=== PATIENT | male | born 1935 | race Caucasian/White ===

== ENCOUNTER 2017-02-18 18:51 | Inpatient (IN) | payer MEDICARE, OTHER ==
[~2017-02-18] VITALS: Ht 175.3 cm; Wt 88.2 kg
[~2017-02-18 18:51] MED LIST: AMLO5 PO; ARIC5TAB PO; DONE5TAB14 PO; MEMA10 PO; NAME10TA PO; NORV5TAB PO; RISP.5 PO; RISP0.252 PO
[2017-02-18 19:08] VITALS: BP 160/72; PULSE 56; RESP 20; TEMP 98.8; O2SAT 96
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
[2017-02-18 19:46] LABS: AUTOMATED NEUTROPHIL # 6.2 TH/MM3 (1.8-7.7); BASOPHIL % 0.4 % (0.0-2.0); EOSINOPHIL % 0.1 % (0.0-4.0); HEMATOCRIT 44.5 % (39.0-51.0); HEMO FLAGS DIFF FINAL; LYMPH % 21.6 % (9.0-44.0); LYMPHOCYTE # 1.9 TH/MM3 (1.0-4.8); MEAN CELL VOLUME 92.9 FL (80.0-100.0); MEAN CORPUSCULAR HEMOGLOBIN 31.5 PG (27.0-34.0); MEAN CORPUSCULAR HGB CONC 33.9 % (32.0-36.0); MONO % 7.6 % (0.0-8.0); NEUT % 70.3 % (16.0-70.0); PLATELET COUNT 211 TH/MM3 (150-450); RED BLOOD COUNT 4.79 MIL/MM3 (4.50-5.90); RED CELL DISTRIBUTION WIDTH 13.7 % (11.6-17.2); WHITE BLOOD COUNT 8.9 TH/MM3 (4.0-11.0)
[2017-02-18 19:58] LABS: BLOOD, URINE NEG (NEG); COMMENT (UR) CULT NOT INDICATED; CULTURE IF INDICATED CULT NOT INDICATED; GLUCOSE,URINE NEG (NEG); KETONE, URINE 10 mg/dL (NEG); MUCUS URINE MANY /lpf (OCC); NITRITE,URINE NEG (NEG); SQUAMOUS EPITHELIAL CELL URINE <1 /hpf (0-5); URINE COLOR YELLOW (YELLW/STRAW)
[2017-02-18 20:09] LABS: ANION GAP 8 MEQ/L (5-15); AST (GOT) 25 U/L (15-37); BICARBONATE 24.9 MEQ/L (21.0-32.0); BLOOD UREA NITROGEN 11 MG/DL (7-18); CHLORIDE 109 MEQ/L (98-107); GLOMERULAR FILTRATION RATE 69 ML/MIN (>89); POTASSIUM 4.2 MEQ/L (3.5-5.1); SODIUM (NA) 142 MEQ/L (136-145)
[2017-02-18 20:10] LABS: ALT (GPT) 19 U/L (12-78)
[2017-02-18 20:12] LABS: ALKALINE PHOSPHATASE 53 U/L (45-117); TOTAL BILIRUBIN ADULT 0.6 MG/DL (0.2-1.0)
[2017-02-18 21:30] VITALS: BP 139/63; PULSE 61; RESP 17; O2SAT 100
[2017-02-18] MEDS ORDERED: HALOPERIDOL LACTATE 5 MG/ML AMP IV PUSH ONE (21:45)
[2017-02-18] MEDS ORDERED: ARIC10TA2 PO (21:51)
[2017-02-18] MEDS ORDERED: RISP1 PO (21:51)
[2017-02-18] MEDS ORDERED: TRAM50TA PO (21:51)
[2017-02-18] MEDS ORDERED: AMLO5 PO (21:51)
[2017-02-18] MEDS ORDERED: NAME10TA PO (21:51)
[2017-02-18] MEDS ORDERED: diphenhydrAMINE HCL 50 MG/ML VIAL - HS PRN IM (22:15)
[2017-02-18] MEDS ORDERED: hydrOXYzine HCL 50 MG TAB PO PRN (22:15)
[2017-02-18] MEDS ORDERED: ALUMINUM/MAGNESIUM/SIMETH 30 ML CUP PO PRN (22:15)
[2017-02-18] MEDS ORDERED: ACETAMINOPHEN 325 MG TAB PO PRN (22:15)
[2017-02-18] MEDS ORDERED: MAGNESIUM HYDROXIDE SUSP 30 ML CUP PO PRN (22:15)
[2017-02-18] MEDS ORDERED: diphenhydrAMINE HCL 50 MG CAP PO PRN (22:15)
[2017-02-18 22:45] VITALS: BP 164/76; PULSE 56; RESP 16; TEMP 97.9; O2SAT 97
[2017-02-18] MEDS: diphenhydrAMINE HCL 50 MG CAP - HS PRN PO (23:02)
[2017-02-18] MEDS: LORazepam 0.5 MG TAB age > 65 yrs PO PRN (23:02)
[2017-02-19] MEDS: NICOTINE 21 MG/24 HR PATCH T-DERMAL SCH (09:06)
[2017-02-19 10:05] LABS: ANION GAP 7 MEQ/L (5-15); BICARBONATE 25.1 MEQ/L (21.0-32.0); BLOOD UREA NITROGEN 11 MG/DL (7-18); CHLORIDE 109 MEQ/L (98-107); GLOMERULAR FILTRATION RATE 81 ML/MIN (>89); POTASSIUM 3.9 MEQ/L (3.5-5.1); SODIUM (NA) 141 MEQ/L (136-145)
[2017-02-19 10:16] LABS: FREE T4 1.21 NG/DL (0.76-1.46); HDL CHOLESTEROL 58.8 MG/DL (40.0-60.0); LDL CHOLESTEROL 106 MG/DL (0-99)
[2017-02-19 10:24] LABS: AUTOMATED NEUTROPHIL # 5.5 TH/MM3 (1.8-7.7); BASOPHIL % 0.1 % (0.0-2.0); EOSINOPHIL % 0.2 % (0.0-4.0); HEMATOCRIT 46.2 % (39.0-51.0); HEMO FLAGS DIFF FINAL; LYMPH % 22.4 % (9.0-44.0); LYMPHOCYTE # 1.8 TH/MM3 (1.0-4.8); MEAN CELL VOLUME 94.1 FL (80.0-100.0); MEAN CORPUSCULAR HEMOGLOBIN 31.3 PG (27.0-34.0); MEAN CORPUSCULAR HGB CONC 33.2 % (32.0-36.0); MONO % 8.4 % (0.0-8.0); NEUT % 68.9 % (16.0-70.0); PLATELET COUNT 199 TH/MM3 (150-450); RED BLOOD COUNT 4.91 MIL/MM3 (4.50-5.90); RED CELL DISTRIBUTION WIDTH 13.8 % (11.6-17.2)
--- NOTE | 2017-02-19 11:41 | PD.CONS ---
HPI Service [facility] Hospitalists Consult Requested By Dr. Frances Reason for Consult painful nodulel on left index finger Primary Care Physician Juanito Alvarez M.D. Diagnoses: History of Present Illness Patient is an 81-year-old male with dementia admitted to the psychiatry department of [facility] due to difficulties in the home setting related to his dementia with agitation. Psychiatry has consulted the medical service due to painful lesion at left index finger. Due to the patient's dementia the time course is unclear. Patient's medical records have been reviewed in [facility] as well as the [facility] EHR. Review of Systems ROS Limitations: Poor Historian Constitutional: DENIES: Diaphoretic episodes, Fatigue, Fever, Weight gain, Weight loss, Chills, Dizziness, Change in appetite, Night Sweats Endocrine: DENIES: Heat/cold intolerance, Polydipsia, Polyuria, Polyphagia Eyes: DENIES: Blurred vision, Diplopia, Eye inflammation, Eye pain, Vision loss , Photosensitivity, Double Vision Ears, nose, mouth, throat: DENIES: Tinnitus, Hearing loss, Vertigo, Nasal discharge, Oral lesions, Throat pain, Hoarseness, Ear Pain, Running Nose, Epistaxis, Sinus Pain, Toothache, Odynophagia Respiratory: DENIES: Apneas, Cough, Snoring, Wheezing, Hemoptysis, Sputum production, Shortness of breath Cardiovascular: DENIES: Chest pain, Palpitations, Syncope, Dyspnea on Exertion , PND, Lower Extremity Edema, Orthopnea, Claudication Gastrointestinal: DENIES: Abdominal pain, Black stools, Bloody stools, BRB per rectum, Constipation, Diarrhea, GERD, Nausea, Reflux, Vomiting, Difficulty Swallowing, Anorexia Genitourinary: DENIES: Urinary frequency, Urinary incontinence, Urgency, Hematuria, Dysuria, Nocturia Musculoskeletal: DENIES: Joint pain, Muscle aches, Stiffness, Joint Swelling, Back pain, Neck pain Integumentary: DENIES: Abnormal pigmentation, Nail changes, Pruritus, Rash Hematologic/lymphatic: DENIES: Bruising, Lymphadenopathy Immunologic/allergic: DENIES: Eczema, Urticaria Neurologic: DENIES: Abnormal gait, Headache, Localized weakness, Paresthesias, Seizures, Speech Problems, Tremor, Poor Balance Psychiatric: COMPLAINS OF: Agitation, DENIES: Anxiety, Confusion, Mood changes , Depression, Hallucinations, Suicidal Ideation, Homicidal Ideation, Delusions, History of Bipolar, History of Schizophrenia Past Family Social History Past Medical History 1) hypertension 2) chronic kidney disease, stage II 3) Alzheimer's dementia with behavioral disturbances 4) BPH 5) COPD Past Surgical History 1. History of Complete Colonoscopy 2. History of Laparoscopic Appendectomy 3. History of Rectal Surgery Polypectomy 4. History of Skin Tag Removal 5. Surgery Foot Amputation Toe At IP Joint 6. History of Thoracentesis (Therapeutic) Reported Medications Reported Meds & Active Scripts Active Reported Tramadol (Tramadol HCl) 50 Mg Tab 50 Mg PO Q4H PRN Risperdal (Risperidone) 1 Mg Tab 1 Mg PO BID Namenda (Memantine) 10 Mg Tab 10 Mg PO BID Aricept (Donepezil HCl) 10 Mg Tablet 1 Tab PO BID Norvasc (Amlodipine Besylate) 5 Mg Tab 5 Mg PO DAILY Allergies: Coded Allergies: Codeine (Unverified Allergy, Unknown, NAUSEA/VOMITTING, 02/18/17) Penicillin (Unverified Allergy, Unknown, 02/18/17) Family History Noncontributory Social History - Retired - - Patient's daughter lives locally - No tobacco - No alcohol - No illicit street drugs Physical Exam Vital Signs Vital Signs Date Time Temp Pulse Resp B/P Pulse Ox O2 Delivery O2 Flow Rate FiO2 02/18/17 22:45 97.9 56 16 164/76 97 02/18/17 21:30 61 17 139/63 100 Room Air 02/18/17 19:08 98.8 56 20 160/72 96 Physical Exam GENERAL: This is a well-nourished, well-developed patient, in no apparent distress. SKIN: No rashes, ecchymoses or lesions. Cool and dry. HEAD: Atraumatic. Normocephalic. No temporal or scalp tenderness. EYES: Pupils equal round and reactive. Extraocular motions intact. No scleral icterus. No injection or drainage. ENT: Nose without bleeding, purulent drainage or septal hematoma. Throat without erythema, tonsillar hypertrophy or exudate. Uvula midline. Airway patent. NECK: Trachea midline. No JVD or lymphadenopathy. Supple, nontender, no meningeal signs. CARDIOVASCULAR: Regular rate and rhythm without murmurs, gallops, or rubs. RESPIRATORY: Clear to auscultation. Breath sounds equal bilaterally. No wheezes , rales, or rhonchi. GASTROINTESTINAL: Abdomen soft, non-tender, nondistended. No hepato-splenomegaly , or palpable masses. No guarding. MUSCULOSKELETAL: Extremities without clubbing, cyanosis, or edema. No joint tenderness, effusion, or edema noted. No calf tenderness. Negative Homans sign bilaterally. NEUROLOGICAL: Awake and alert. Cranial nerves II through XII intact. Motor and sensory grossly within normal limits. Five out of 5 muscle strength in all muscle groups. Normal speech. Laboratory Laboratory Tests Test 02/18/17 02/18/17 02/19/17 19:20 19:25 08:37 White Blood Count 8.9 8.0 Red Blood Count 4.79 4.91 Hemoglobin 15.1 15.3 Hematocrit 44.5 46.2 Mean Corpuscular Volume 92.9 94.1 Mean Corpuscular Hemoglobin 31.5 31.3 Mean Corpuscular Hemoglobin 33.9 33.2 Concent Red Cell Distribution Width 13.7 13.8 Platelet Count 211 199 Mean Platelet Volume 8.4 8.3 Neutrophils (%) (Auto) 70.3 68.9 Lymphocytes (%) (Auto) 21.6 22.4 Monocytes (%) (Auto) 7.6 8.4 Eosinophils (%) (Auto) 0.1 0.2 Basophils (%) (Auto) 0.4 0.1 Neutrophils # (Auto) 6.2 5.5 Lymphocytes # (Auto) 1.9 1.8 Monocytes # (Auto) 0.7 0.7 Eosinophils # (Auto) 0.0 0.0 Basophils # (Auto) 0.0 0.0 CBC Comment DIFF FINAL DIFF FINAL Differential Comment Sodium Level 142 141 Potassium Level 4.2 3.9 Chloride Level 109 109 Carbon Dioxide Level 24.9 25.1 Anion Gap 8 7 Blood Urea Nitrogen 11 11 Creatinine 1.03 0.90 Estimat Glomerular Filtration 69 81 Rate Random Glucose 89 80 Calcium Level 9.1 9.2 Total Bilirubin 0.6 Aspartate Amino Transf 25 (AST/SGOT) Alanine Aminotransferase 19 (ALT/SGPT) Alkaline Phosphatase 53 Total Protein 7.1 Albumin 3.9 Urine Color YELLOW Urine Turbidity CLEAR Urine pH 7.0 Urine Specific [place] 1.026 Urine Protein 30 Urine Glucose (UA) NEG Urine Ketones 10 Urine Occult Blood NEG Urine Nitrite NEG Urine Bilirubin NEG Urine Urobilinogen 2.0 Urine Leukocyte Esterase NEG Urine RBC 4 Urine WBC 2 Urine Squamous Epithelial <1 Cells Urine Mucus MANY Microscopic Urinalysis Comment CULT NOT INDICATED Triglycerides Level 68 Cholesterol Level 178 LDL Cholesterol 106 HDL Cholesterol 58.8 Cholesterol/HDL Ratio 3.02 Free Thyroxine 1.21 Thyroid Stimulating Hormone 3.420 3rd Gen Result Diagram: 02/19/1737 02/19/17836 Assessment and Plan Problem List: (1) Nodule of finger of left hand Status: Acute Plan: - large, raised nodular skin lesion at the lateral base of the left 2nd digit - DDX: keratoacanthoma vs BCC vs other malignancy - consult General Surgery (2) HTN (hypertension), benign Status: Chronic Plan: - stable - Patient's blood pressure was elevated last night - Patient refused vitals this a.m. - continue norvasc - prn catapress (3) Alzheimer's dementia Status: Chronic Plan: - namenda, aricept - comgmt with Psychiatry Problem Qualifiers (1) Alzheimer's dementia: Qualified Code: G30.8 - Alzheimer's dementia with behavioral disturbance, unspecified timing of dementia onset Tommie Herman DO Feb 19, 2017 11:41
[2017-02-19] MEDS: amLODIPine BESYLATE 5 MG TAB PO SCH (11:44)
[2017-02-19] MEDS: DONEPEZIL HCL 5 MG TAB PO SCH ×2 (11:44→21:25)
[2017-02-19] MEDS: MEMANTINE HCL 10 MG TAB PO SCH ×2 (11:44→21:25)
[2017-02-19] MEDS: risperiDONE 1 MG TAB PO SCH ×2 (11:44→21:25)
[2017-02-19] MEDS ORDERED: cloNIDine HCL 0.2 MG TAB PO PRN (11:45)
[2017-02-19 13:32] LABS: HEMOGLOBIN A1a 0.9 %; HEMOGLOBIN A1b 1.5 %; HEMOGLOBIN Ao 87.7 %; HEMOGLOBIN LA1C 1.6 %; HEMOGLOBIN P3 3.2 %
[2017-02-19] MEDS ORDERED: HALOPERIDOL LACTATE 5 MG/ML AMP IM PRN (13:45)
[2017-02-19] MEDS: LORazepam 2 MG/ML VIAL - age > 65 yrs IM PRN (13:47)
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
[2017-02-19] MEDS: REMOVE OLD NICOTINE PATCH T-DERMAL SCH (21:00)
--- NOTE | 2017-02-19 22:57 | RADRPT ---
EXAM DATE/TIME: 02/19/2017 22:33 [facility] COMPARISON: No previous studies available for comparison. INDICATIONS : Left hand neoplasm at base of 2nd digit. MEDICAL HISTORY : None. SURGICAL HISTORY : None. ENCOUNTER: Initial ACUITY: 1 day PAIN SCORE: 0/10 LOCATION: Left hand FINDINGS: There is focal soft-tissue swelling/mass at the base of the left 2nd digit. No underlying bony lesio n is noted. No fracture or dislocation is noted. CONCLUSION: 1. Focal soft-tissue swelling/mass at the base of the left 2nd digit without underlying bony lesion. Jose Cruz Dowling MD on February 19, 2017 at 22:50 Board Certified Radiologist. This report was verified electronically.
[2017-02-20] MEDS: LORazepam 0.5 MG TAB age > 65 yrs PO PRN ×2 (02:26→21:28)
[2017-02-20] MEDS: diphenhydrAMINE HCL 50 MG CAP - HS PRN PO (02:27)
[2017-02-20 05:39] VITALS: BP 118/76; PULSE 58; RESP 18; TEMP 97.8; O2SAT 99
[2017-02-20] MEDS: NICOTINE 21 MG/24 HR PATCH T-DERMAL SCH (09:00)
[2017-02-20] MEDS: amLODIPine BESYLATE 5 MG TAB PO SCH (09:27)
[2017-02-20] MEDS: MEMANTINE HCL 10 MG TAB PO SCH ×3 (09:27→21:29)
[2017-02-20] MEDS: risperiDONE 1 MG TAB PO SCH ×3 (09:28→21:28)
[2017-02-20] MEDS: DONEPEZIL HCL 5 MG TAB PO SCH ×3 (09:28→21:29)
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
[2017-02-20 18:00] VITALS: BP 132/62; PULSE 75; RESP 18; TEMP 97.5; O2SAT 91
[2017-02-20] MEDS: REMOVE OLD NICOTINE PATCH T-DERMAL SCH (21:00)
[2017-02-20] MEDS: LORazepam 2 MG/ML VIAL - age > 65 yrs IM PRN (21:43)
[2017-02-20] MEDS: diphenhydrAMINE HCL 50 MG/ML VIAL IM PRN (21:44)
[2017-02-21 06:00] VITALS: BP 154/63; PULSE 65; RESP 18; O2SAT 96
[2017-02-21] MEDS: MEMANTINE HCL 10 MG TAB PO SCH ×2 (08:49→20:35)
[2017-02-21] MEDS: amLODIPine BESYLATE 5 MG TAB PO SCH (08:49)
[2017-02-21] MEDS: risperiDONE 1 MG TAB PO SCH ×2 (08:49→20:35)
[2017-02-21] MEDS: DONEPEZIL HCL 5 MG TAB PO SCH ×2 (08:49→20:35)
[2017-02-21] MEDS: NICOTINE 21 MG/24 HR PATCH T-DERMAL SCH (09:00)
--- NOTE | 2017-02-21 09:27 | MB ---
cc: ALBERT SHAW III, M.D. DATE OF CONSULTATION 02/20/2017 REASON FOR CONSULTATION The patient is an 81-year-old male who was admitted to the psychiatry unit involuntarily and was noted to have a left index fungating mass. It had become increasingly aggressive and difficult to manage at home. I saw him in the day room with an aide and his nurse. He is alert, but he is not interactive at all. PAST MEDICAL HISTORY Alzheimer's disease PAST SURGICAL HISTORY Unobtainable SOCIAL HISTORY Unobtainable ALLERGIES CODEINE AND PENICILLIN MEDICATIONS 1. Haldol 2. Aricept 3. Norvasc 4. Namenda 5. Risperdal 6. Ativan 7. Benadryl REVIEW OF SYSTEMS The patient is not complaining of any headaches, blurry or double vision. He is not complaining of any chest pain or palpitation. No complaining of any coughing, wheezing or shortness breath. He is not complaining of nausea, vomiting or abdominal pain. He is not complaining of any burning, frequency or urgency. He is not complaining of anything. He is not even talking to me. IMAGING X-rays of the left hand were performed and reviewed in the hospital yesterday which reveals focal soft tissue swelling of the mass at the base and left second digit without underlying bony lesion. PHYSICIAN EXAMINATION The patient is well-developed, well-nourished, sitting up comfortable in his chair in the day room watching TV. He is awake and alert, but not interactive. VITAL SIGNS: Temperature is 97.8, pulse 58, respiratory rate 18, blood pressure 118/76, pulse ox 95% on room air. EXAMINATION OF THE LEFT HAND: Full active range of motion. There is a large 2-3 cm fungating mass that is not weeping or bleeding. On the radial side of the index finger at the PIP joint level of the proximal PIP joint. Capillary refill is less than two seconds. The mass is firm. It is superficially anchored and it is mobile. It is 1 cm proud to the skin as well. He has a palpable radial pulse. Capillary refill is less than two seconds in all fingertips. All the musculotendinous units appear to be intact. I do not appreciate or palpate any other masses in the forearm around the elbow or in the upper arm. No evidence of any adenopathy. IMPRESSION Mass left index finger. PLAN My recommendation is for excisional biopsy, but the patient is likely not a good candidate for anesthesia at this very moment. I discussed this with the nurse. My recommendation is to reevaluate his mental state in a short while, but he does need to have this addressed as I am very concerned for a malignant neoplasm. We will be able to get one of the anesthesiologist's to give his input and recommendations. MD BETTINA Nunez III/ABIMBOLA /6:36 PM /9:20 AM
--- NOTE | 2017-02-21 14:02 | PD.TTN ---
Present for Treatment Team Treatment Team Staff: Provider (Dr. Man), Nurse (Burak), Psych Therapist ( Carlotta), Occupational Therapist (OWEN Romero) Patient Problems 1. Discharge planning 2. Medication compliance 3. Knowledge deficit 4. Lack of coping skills Progress Toward Goals Provider Input: Patient needs medication adjustment and will be working on placement. Nurse Input: Patient was noncomplient with medications at night but had taken them in the morning. Minor behavioral issues. Patient did not sleep and has not been eating. Psych Therapist Input: Counselor spoke with Kat larkin [place] in regards to placement for patient. Patient was nonverbal with counselor. Carlotta Munson RMI Feb 21, 2017 14:02
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
[2017-02-21 17:47] VITALS: BP 129/74; PULSE 78; RESP 18; O2SAT 96
[2017-02-21 23:30] VITALS: BP 145/76; PULSE 82; RESP 18; TEMP 97.8; O2SAT 99
[2017-02-21] MEDS: diphenhydrAMINE HCL 50 MG/ML VIAL IM PRN (23:47)
[2017-02-21] MEDS: LORazepam 2 MG/ML VIAL - age > 65 yrs IM PRN (23:48)
[2017-02-22] VITALS (7 sets, daily range): BP systolic 122–141; BP diastolic 62–88; PULSE 61–100; RESP 16–18; TEMP 91.7–98; O2SAT 98–99
[2017-02-22] MEDS: MEMANTINE HCL 10 MG TAB PO SCH ×2 (09:00→20:32)
[2017-02-22] MEDS: risperiDONE 1 MG TAB PO SCH (09:00)
[2017-02-22] MEDS: amLODIPine BESYLATE 5 MG TAB PO SCH (09:00)
[2017-02-22] MEDS: DONEPEZIL HCL 5 MG TAB PO SCH ×2 (09:00→20:31)
--- NOTE | 2017-02-22 10:35 | RADRPT ---
EXAM DATE/TIME: 02/22/2017 10:16 [facility] COMPARISON: No previous studies available for comparison. INDICATIONS : Evaluate for fracture. MEDICAL HISTORY : None. SURGICAL HISTORY : None. ENCOUNTER: Subsequent ACUITY: 4 - 6 days PAIN SCORE: Non-responsive. LOCATION: Bilateral pelvis. FINDINGS: A single frontal view of the pelvis demonstrates no evidence of fracture. The bony pelvic ring is in tact. Bony mineralization is normal. The soft tissues are intact. CONCLUSION: Negative for fracture. John Odell MD FACR on February 22, 2017 at 10:32 Board Certified Radiologist. This report was verified electronically.
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
[2017-02-22] MEDS: risperiDONE 0.5 MG TAB PO SCH (20:31)
[2017-02-22] MEDS: traZODone HCL 50 MG TAB PO PRN (23:00)
[2017-02-23 01:08] VITALS: BP 105/51; PULSE 103; TEMP 98.3; O2SAT 93
[2017-02-23 06:08] VITALS: BP 126/73; PULSE 87; RESP 18; TEMP 97; O2SAT 98
[2017-02-23] MEDS: MEMANTINE HCL 10 MG TAB PO SCH ×2 (09:08→21:14)
[2017-02-23] MEDS: DONEPEZIL HCL 5 MG TAB PO SCH ×2 (09:08→21:15)
[2017-02-23] MEDS: risperiDONE 0.5 MG TAB PO SCH ×2 (09:08→21:14)
[2017-02-23] MEDS: amLODIPine BESYLATE 5 MG TAB PO SCH (09:08)
--- NOTE | 2017-02-23 13:06 | HHI.PR ---
Subjective Remarks saw pt on 02/22. asked to see pt regarding "AMS". when I arrived the pt was in chair. He was able to eat and followed commands. He was demented. nursing reports that he is improving and essentially back to baseline. Objective Vitals dementia nad follows commands no facial droop moves all 4 ext's heart reg lung cta abd s/nt/nabs Vital Signs Date Time Temp Pulse Resp B/P Pulse Ox O2 Delivery O2 Flow Rate FiO2 02/23/17 06:08 97.0 87 18 126/73 98 02/23/17 01:08 98.3 103 105/51 93 02/22/17 18:00 91.7 66 17 135/62 98 02/22/17 17:44 98.0 66 18 135/62 98 02/22/17 13:30 97.0 61 16 140/63 98 02/22/17 02/22/17 02/23/17 15:00 23:00 07:00 Intake Total 480 ml 240 ml 0 ml Balance 480 ml 240 ml 0 ml Intake Oral 480 ml 240 ml 0 ml # Voids 1 1 Result Diagram: 02/19/17 0837 02/19/17 0837 A/P Problem List: (1) Nodule of finger of left hand Status: Acute Plan: large growth on finger sp evaluation by hand surgery. concern for malignancy. plan for resection when mentally stable I was asked to see pt for AMS. On review of the MAR the pt received a large amt of benadryl overnight and ativan. I would believe the acute mental status changes are medication related and I asked the nurse to avoid these doses. Pt was already getting backwinder to his mental baseline which is severe dementia. - (2) HTN (hypertension), benign Status: Chronic Plan: cont home meds (3) Alzheimer's dementia Status: Chronic Plan: - namenda, aricept - comgmt with Psychiatry Problem Qualifiers (1) Alzheimer's dementia: Qualified Code: G30.8 - Alzheimer's dementia with behavioral disturbance, unspecified timing of dementia onset Keaton Anderson MD Feb 23, 2017 13:05
[2017-02-23 20:56] VITALS: BP 127/63; PULSE 70; RESP 16; TEMP 98.8; O2SAT 98
[2017-02-23] MEDS: traZODone HCL 50 MG TAB PO PRN (21:14)
[2017-02-24 04:45] VITALS: BP 150/68; PULSE 62; RESP 18; TEMP 98.2; O2SAT 98
[2017-02-24 06:13] VITALS: BP 150/68; PULSE 62; RESP 18; TEMP 98.2; O2SAT 98
[2017-02-24] MEDS: risperiDONE 0.5 MG TAB PO SCH ×3 (09:00→22:06)
[2017-02-24] MEDS: MEMANTINE HCL 10 MG TAB PO SCH ×3 (09:00→22:05)
[2017-02-24] MEDS: DONEPEZIL HCL 5 MG TAB PO SCH ×3 (09:00→22:05)
[2017-02-24] MEDS: amLODIPine BESYLATE 5 MG TAB PO SCH ×2 (09:00→09:10)
[2017-02-24 10:29] VITALS: BP 112/59; PULSE 64
[2017-02-24 17:48] VITALS: BP 126/57; PULSE 52; RESP 17; TEMP 97; O2SAT 95
[2017-02-25 05:34] VITALS: BP 161/72; PULSE 58; RESP 18; TEMP 97.5; O2SAT 98
[2017-02-25] MEDS: DONEPEZIL HCL 5 MG TAB PO SCH ×2 (10:46→20:14)
[2017-02-25] MEDS: risperiDONE 0.5 MG TAB PO SCH ×2 (10:46→20:02)
[2017-02-25] MEDS: MEMANTINE HCL 10 MG TAB PO SCH ×2 (10:46→20:02)
[2017-02-25] MEDS: amLODIPine BESYLATE 5 MG TAB PO SCH (10:46)
[2017-02-25 18:20] VITALS: BP 124/58; PULSE 70; RESP 17; TEMP 98.1; O2SAT 99
[2017-02-26 06:13] VITALS: BP 151/93; PULSE 74; RESP 17; TEMP 98.1; O2SAT 95
[2017-02-26] MEDS: MEMANTINE HCL 10 MG TAB PO SCH ×2 (08:24→21:09)
[2017-02-26] MEDS: DONEPEZIL HCL 5 MG TAB PO SCH ×2 (08:24→21:09)
[2017-02-26] MEDS: amLODIPine BESYLATE 5 MG TAB PO SCH (08:24)
[2017-02-26] MEDS: risperiDONE 0.5 MG TAB PO SCH ×2 (08:24→21:09)
[2017-02-26 18:15] VITALS: BP 105/54; PULSE 64; RESP 17; TEMP 97.1; O2SAT 98
[2017-02-26] MEDS: traZODone HCL 50 MG TAB PO PRN (21:10)
[2017-02-27 05:36] VITALS: BP 113/58; PULSE 67; RESP 17; TEMP 97.9; O2SAT 95
[2017-02-27] MEDS: MEMANTINE HCL 10 MG TAB PO SCH ×2 (08:33→20:11)
[2017-02-27] MEDS: risperiDONE 0.5 MG TAB PO SCH ×2 (08:33→20:11)
[2017-02-27] MEDS: amLODIPine BESYLATE 5 MG TAB PO SCH (08:33)
[2017-02-27] MEDS: DONEPEZIL HCL 5 MG TAB PO SCH ×2 (08:33→20:11)
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
[2017-02-27 18:02] VITALS: BP 132/59; PULSE 77; RESP 18; TEMP 96.9; O2SAT 97
[2017-02-27] MEDS: traZODone HCL 50 MG TAB PO PRN (20:11)
[2017-02-28 05:47] VITALS: BP 136/83; PULSE 64; RESP 18; O2SAT 97
[2017-02-28] MEDS: DONEPEZIL HCL 5 MG TAB PO SCH ×2 (08:40→20:36)
[2017-02-28] MEDS: risperiDONE 0.5 MG TAB PO SCH ×2 (08:40→20:36)
[2017-02-28] MEDS: MEMANTINE HCL 10 MG TAB PO SCH ×2 (08:40→20:36)
[2017-02-28] MEDS: amLODIPine BESYLATE 5 MG TAB PO SCH (08:40)
[2017-02-28 18:33] VITALS: BP 100/56; PULSE 77; RESP 16; O2SAT 97
[2017-02-28] MEDS: traZODone HCL 50 MG TAB PO PRN (20:36)
[2017-03-01 04:45] VITALS: BP 165/86; PULSE 63; RESP 16; TEMP 97.9; O2SAT 94
[2017-03-01] MEDS: DONEPEZIL HCL 5 MG TAB PO SCH ×2 (08:50→22:04)
[2017-03-01] MEDS: amLODIPine BESYLATE 5 MG TAB PO SCH (08:50)
[2017-03-01] MEDS: MEMANTINE HCL 10 MG TAB PO SCH ×2 (08:50→22:04)
[2017-03-01] MEDS: risperiDONE 0.5 MG TAB PO SCH ×2 (08:50→22:04)
--- NOTE | 2017-03-01 14:13 | PD.TTN ---
Present for Treatment Team Treatment Team Staff: Provider (Dr. Burnett), Nurse (Ashwini), Psych Therapist ( Carlotta), Occupational Therapist (Theodore) Patient Problems 1. Discharge planning 2. Medication compliance 3. Knowledge deficit 4. Lack of coping skills Progress Toward Goals Provider Input: Patient is doing well and has improved. patient does well in the afternoons and it noted to be at his baseline. Nurse Input: Patient is compliant with medications and has had no behavioral issues. Patient is more sedated in the mornings but becomes more alert in the afternoon. Psych Therapist Input: Patient is alert and oriented to person. patient continues to have loose associations and is unable to appropriately answer questions. Patient is noted to smiling during treatment team and is easily redirected. patient is pleasant. Occupational Therapist Input: Patient does not attend groups Carlotta Munson [facility] Mar 01, 2017 14:13
[2017-03-01 18:00] VITALS: BP 98/55; PULSE 73; RESP 17; TEMP 97.3; O2SAT 99
--- NOTE | 2017-03-01 18:02 | PD.WCN.NOT ---
Wound Consult Description: Patient seen on 2500 psych unit for evaluation of bilateral buttock wound management. Patient stood with assistance of staff. Pulled brief down to reveal 100% pink partial thickness wound measuring 7 cm x 2 cm x ~<0.1 cm to L buttock Etiology of wound appears to be moisture, pressure and friction. Periwound is noted with blanchable erythema, and denuded skin that has additional small scattered areas of partial thickness skin loss. Patient assisted to bathroom by staff. Patient cleansed with soap and water gently by psych unit staff. Calazime barrier cream applied to bilateral buttock area and wound left open to air. Briefs left off patient. Please leave L buttock wound open to air for now and apply Calazime barrier cream BID and PRN to bilateral buttocks. When periwound is no longer denuded may cleanse bilateral buttock with soap and water gently and pat dry and apply Xeroform cover with bordered gauze. Please apply skin prep before applying adhesives to skin Communicated with: NARENDRA Maradiaga 2500 psych unit, and Doctor Virgil for orders Recommendation: Please leave L buttock wound open to air for now. Cleanse buttock area gently with soap and water and pat dry.Apply Calazime barrier cream BID and PRN to bilateral buttocks for now. Please turn patient every 2 hours and PRN for comfort. Please do not put briefs on patient. Use ultrasorb pads for incontinence management. When periwound is no longer denuded may cleanse bilateral buttock with soap and water gently and pat dry. Apply Xeroform in single layer just over wound bed to L buttock and secure dressing with bordered gauze. Please apply skin prep before applying adhesives to skin. Please do not apply Calazime barrier cream when dressing is applied Jesi Azar [facility] Mar 01, 2017 18:02
[2017-03-01] MEDS: traZODone HCL 50 MG TAB PO PRN (23:53)
[2017-03-01] MEDS: LORazepam 0.5 MG TAB age > 65 yrs PO PRN (23:53)
[2017-03-02 06:20] VITALS: BP 134/70; PULSE 69; RESP 19; TEMP 97.5; O2SAT 95
[2017-03-02] MEDS: amLODIPine BESYLATE 5 MG TAB PO SCH (08:38)
[2017-03-02] MEDS: MEMANTINE HCL 10 MG TAB PO SCH ×2 (08:38→21:11)
[2017-03-02] MEDS: risperiDONE 0.5 MG TAB PO SCH ×2 (08:38→21:11)
[2017-03-02] MEDS: DONEPEZIL HCL 5 MG TAB PO SCH ×2 (08:38→21:11)
[2017-03-02 19:23] VITALS: BP 130/70; PULSE 69; RESP 19; TEMP 97.9; O2SAT 95
[2017-03-02] MEDS: traZODone HCL 50 MG TAB PO PRN (21:11)
[2017-03-03 06:08] VITALS: BP 152/72; PULSE 66; RESP 18; TEMP 97.3; O2SAT 95
[2017-03-03] MEDS: amLODIPine BESYLATE 5 MG TAB PO SCH (08:40)
[2017-03-03] MEDS: DONEPEZIL HCL 5 MG TAB PO SCH ×2 (08:40→20:53)
[2017-03-03] MEDS: risperiDONE 0.5 MG TAB PO SCH ×2 (08:41→20:53)
[2017-03-03] MEDS: MEMANTINE HCL 10 MG TAB PO SCH ×2 (08:41→20:53)
[2017-03-03 16:22] VITALS: BP 115/50; PULSE 54; RESP 18; TEMP 97.4; O2SAT 95
[2017-03-04 04:00] VITALS: BP 114/57; PULSE 67; RESP 15; TEMP 98; O2SAT 97
[2017-03-04] MEDS: DONEPEZIL HCL 5 MG TAB PO SCH ×2 (09:45→20:39)
[2017-03-04] MEDS: amLODIPine BESYLATE 5 MG TAB PO SCH (09:45)
[2017-03-04] MEDS: risperiDONE 0.5 MG TAB PO SCH ×2 (09:45→20:39)
[2017-03-04] MEDS: MEMANTINE HCL 10 MG TAB PO SCH ×2 (09:45→20:39)
--- NOTE | 2017-03-04 11:27 | HHI.PR ---
Subjective Remarks No pt complaints. Dr. Burnett asked that I reevaluate Mr. Layton d/t his left buttock wound prior to pt's discharge from [facility]. Objective Vitals Vital Signs Date Time Temp Pulse Resp B/P Pulse Ox O2 Delivery O2 Flow Rate FiO2 03/04/17 04:00 98.0 67 15 114/57 97 03/03/17 16:22 97.4 54 18 115/50 95 03/03/17 03/03/17 03/04/17 15:00 23:00 07:00 Intake Total 1200 ml 0 ml Balance 1200 ml 0 ml Intake Oral 1200 ml 0 ml # Voids 1 Imaging Last Impressions Hand X-Ray 02/27/17 0000 Signed Impressions: Service Date/Time: Monday, February 27, 2017 13:55 - CONCLUSION: Primary degenerative changes at the first carpal metacarpal joint. No acute fracture or joint dislocation. Addy Pedroza MD Pelvis X-Ray 02/22/17 0000 Signed Impressions: Service Date/Time: Wednesday, February 22, 2017 10:16 - CONCLUSION: Negative for fracture. John Odell MD FACR Objective Remarks GENERAL: This is a well-nourished, well-developed patient, in no apparent distress. CARDIOVASCULAR: Regular rate and rhythm without murmurs, gallops, or rubs. RESPIRATORY: Clear to auscultation. Breath sounds equal bilaterally. No wheezes , rales, or rhonchi. GASTROINTESTINAL: Abdomen soft, non-tender, nondistended. Normal active bowel sounds MUSCULOSKELETAL: Extremities without clubbing, cyanosis, or edema. NEURO: Alert & Oriented x4 to person, place, time, situation. Moves all ext x4 Skin: decubitus ulcer at left buttock pink partial thickness wound, 7cm x 2cm, less than 0.1cm depth A/P Problem List: (1) Nodule of finger of left hand Status: Acute Plan: - large growth on finger sp evaluation by hand surgery. concern for malignancy. plan for resection when mentally stable - f/u with Dr. Bell in 2-3 weeks (2) HTN (hypertension), benign Status: Chronic Plan: - stable - norvasc (3) Alzheimer's dementia Status: Chronic Plan: - namenda, aricept - comgmt with Psychiatry (4) Decubitus ulcer of left buttock, stage 2 Status: Acute Plan: - Pt seen by [facility] wound care - continue xeroform - f/u with [facility] Wound Care clinic - Pt would be best served by going to SNF following discharge rather than home so that pt could receive inpt nursing care and attention to his wound. - I am concerned that if pt is discharge to home the wound may deteriorate Problem Qualifiers (1) Alzheimer's dementia: Qualified Code: G30.8 - Alzheimer's dementia with behavioral disturbance, unspecified timing of dementia onset Tommie Herman DO Mar 04, 2017 11:27
[2017-03-04 18:00] VITALS: BP 118/59; PULSE 67; RESP 17; TEMP 97.8; O2SAT 100
[2017-03-04] MEDS: traZODone HCL 50 MG TAB PO PRN (20:39)
[2017-03-04] MEDS: HALOPERIDOL LACTATE 5 MG/ML AMP IM PRN (22:51)
[2017-03-05] MEDS: amLODIPine BESYLATE 5 MG TAB PO SCH (08:11)
[2017-03-05] MEDS: MEMANTINE HCL 10 MG TAB PO SCH ×2 (08:11→20:52)
[2017-03-05] MEDS: risperiDONE 0.5 MG TAB PO SCH ×2 (08:11→20:54)
[2017-03-05] MEDS: DONEPEZIL HCL 5 MG TAB PO SCH ×2 (08:11→20:54)
[2017-03-05] MEDS: traZODone HCL 50 MG TAB PO PRN (20:52)
[2017-03-05] MEDS: HALOPERIDOL LACTATE 5 MG/ML AMP IM PRN (21:26)
[2017-03-06] MEDS: amLODIPine BESYLATE 5 MG TAB PO SCH (08:02)
[2017-03-06] MEDS: DONEPEZIL HCL 5 MG TAB PO SCH ×2 (08:02→20:59)
[2017-03-06] MEDS: risperiDONE 0.5 MG TAB PO SCH ×2 (08:02→20:59)
[2017-03-06] MEDS: MEMANTINE HCL 10 MG TAB PO SCH ×2 (08:02→20:58)
--- NOTE | 2017-03-06 13:01 | HHI.PR ---
Subjective Remarks I discussed this case with Dr. Burnett as well as the patient's daughter. The patient's daughter is requesting excision of the mass while he is in the hospital which is very reasonable. Dr. Chen feels the patient is as level and equilibrated as he will be from a mental status standpoint at this time Objective I/O 03/05/17 03/05/17 03/05/17 03/06/17 03/06/17 03/06/17 07:00 15: 23:00 07:00 15:00 23:00 Intake Total 720 ml 240 ml 120 ml 360 ml Balance 720 ml 240 ml 120 ml 360 ml Intake Oral 720 ml 240 ml 120 ml 360 ml # Voids 2 3 # Bowel Movements 2 Objective Remarks The patient's awake and alert but is not able to answer simple questions or follow simple commands but he is pleasant. Examination of his left hand reveals a 2-3 cm mass on left index finger that is not open and does not show any sign of infection. It is mobile. There are no other masses palpable on the left upper extremity. There is no epitrochlear or axillary adenopathy palpable Assessment and Plan Problem List: (1) Mass of finger of left hand Status: Acute Plan: I will schedule the patient for surgery for Monday. I discussed this with the anesthesiologist the patient will need general anesthesia. The patient may need a skin graft full-thickness to close the wound. I discussed it possible outcomes with the patient's daughter she indicates she understands, for example if his cancer he will need further operation for definitive care which may include amputation. She also understands that the patient is risky surgical candidate and is a risk for infection at the very least because he is not able to follow simple instructions specifically leaving the wound alone and further Will put cast on his hand and arm Ke Bell III, MD Mar 06, 2017 13:01
[2017-03-06] MEDS: traZODone HCL 50 MG TAB PO PRN (20:58)
[2017-03-07 06:44] VITALS: BP 120/59; PULSE 67; RESP 20; TEMP 98; O2SAT 96
[2017-03-07] MEDS: DONEPEZIL HCL 5 MG TAB PO SCH ×2 (09:46→21:28)
[2017-03-07] MEDS: MEMANTINE HCL 10 MG TAB PO SCH ×2 (09:46→21:28)
[2017-03-07] MEDS: risperiDONE 0.5 MG TAB PO SCH ×2 (09:46→21:28)
[2017-03-07] MEDS: amLODIPine BESYLATE 5 MG TAB PO SCH (09:46)
[2017-03-07 16:03] VITALS: BP 135/69; PULSE 66; RESP 20; TEMP 93.7; O2SAT 99
[2017-03-07] MEDS: traZODone HCL 50 MG TAB PO PRN (21:27)
[2017-03-08] MEDS: LORazepam 2 MG/ML VIAL - age > 65 yrs IM PRN (00:10)
[2017-03-08] MEDS: DONEPEZIL HCL 5 MG TAB PO SCH ×2 (08:47→21:00)
[2017-03-08] MEDS: MEMANTINE HCL 10 MG TAB PO SCH ×2 (08:47→21:00)
[2017-03-08] MEDS: risperiDONE 0.5 MG TAB PO SCH ×2 (08:48→21:00)
[2017-03-08] MEDS: amLODIPine BESYLATE 5 MG TAB PO SCH (08:48)
[2017-03-08] MEDS ORDERED: ePHEDrine/NS 25 MG/5 ML SYR IV ONE (12:00)
[2017-03-08] MEDS ORDERED: DICLOFENAC SODIUM 37.5 MG/ML VIAL IV PUSH ONE (12:00)
[2017-03-08] MEDS ORDERED: LACTATED RINGER'S 1000 ML INJ 1,000 ML IV ONE (12:00)
[2017-03-08] MEDS ORDERED: ONDANSETRON HCL 4 MG/2 ML VIAL IV PUSH ONE (12:00)
[2017-03-08] MEDS ORDERED: PROPOFOL 200 MG/20 ML AMP IV ONE (12:00)
[2017-03-08] MEDS ORDERED: fentaNYL CITRATE 250 MCG/5 ML AMP IV ONE (12:00)
[2017-03-08] MEDS ORDERED: VANCOMYCIN INJ 1,000 MG in SODIUM CHLOR 0.9% 250 ML INJ 250 ML IV SCH (12:30)
[2017-03-08] MEDS ORDERED: VANCOMYCIN HCL 1000 MG VIAL OTHER ONE (14:25)
[2017-03-08] MEDS ORDERED: LIDOCAINE HCL 2% 50 ML VIAL INFIL ONE (14:39)
[2017-03-08] MEDS ORDERED: BUPIVACAINE HCL PF 0.5% 30 ML VIAL INFIL ONE (14:39)
[2017-03-08] MEDS ORDERED: LIDOCAINE 1%/EPINEPHrine 1:100,000 SOLN 30 ML VIAL INFIL ONE (15:02)
--- NOTE | 2017-03-08 16:24 | EKG ---
Date Performed: 03/08/2017 Time Performed: 13:52:50 PTAGE: 81 years EKG: Sinus rhythm WITH FIRST DEGREE AV BLOCK RIGHT AXIS DEVIATION RIGHT BUNDLE BRANCH BLOCK ABNORMAL ECG NO PREVIOUS TRACING DOCTOR: Joe Rodriguez Interpretating Date/Time 03/08/2017 16:21:19
[2017-03-08 18:00] VITALS: BP 115/59; PULSE 60; RESP 16; TEMP 98.7; O2SAT 96
[2017-03-08] MEDS: LORazepam 0.5 MG TAB age > 65 yrs PO PRN (21:00)
[2017-03-08] MEDS: traZODone HCL 50 MG TAB PO PRN (21:00)
[2017-03-08] MEDS: ACETAMINOPHEN/HYDROcodone 325 MG/5 MG TAB PO PRN (21:00)
[2017-03-08] MEDS: HALOPERIDOL LACTATE 5 MG/ML AMP IM PRN (23:08)
[2017-03-09] MEDS: ACETAMINOPHEN/HYDROcodone 325 MG/5 MG TAB PO PRN ×2 (01:47→05:20)
[2017-03-09] MEDS: DONEPEZIL HCL 5 MG TAB PO SCH ×2 (09:00→21:00)
[2017-03-09] MEDS: risperiDONE 0.5 MG TAB PO SCH ×2 (09:21→21:14)
[2017-03-09] MEDS: MEMANTINE HCL 10 MG TAB PO SCH ×2 (09:21→21:15)
[2017-03-09] MEDS: amLODIPine BESYLATE 5 MG TAB PO SCH (09:21)
--- NOTE | 2017-03-09 12:46 | MP ---
cc: KE BELL III, M.D. DATE OF OPERATION 03/08/2017 PREOPERATIVE DIAGNOSIS Left hand/index finger mass. PROCEDURE 1. Left hand/index finger mass excisional biopsy. 2. Left hand/index finger full-thickness skin graft, 6 cm2. SURGEON Ke Bell III, MD PROCEDURE The patient was brought to the operating room and placed supine on the operating room table. After the correct site and side of the surgery were verified by members of each team in the room multiple times including the patient and myself and after adequate preoperative markings and preoperative written consent were verified and after an adequate preoperative time-out was performed to everyone's satisfaction, after adequate general anesthesia had been achieved, the left upper extremity was prepped and draped in the traditional sterile surgical fashion. A 50/50 mixture of 2% plain lidocaine and 0.5% plain Marcaine was infiltrated in the skin and subcutaneous tissue in the skin over the dorsal aspect of the hand proximal to the mass. The limb was elevated. Pressure was held on the brachial artery for one minute and then pressure was maintained with a gentle tourniquet around the forearm for approximately 15 minutes. The mass on the dorsal aspect of the left hand/index finger was excised with a 1 cm margin. It easily from the extensor tendon dorsally and was passed off the field in the entirety of the specimen. Bipolar electrocautery was used sparingly for subcutaneous bleeders. Sterile water was then used to thoroughly irrigate out the area, gloves were changed and new instruments were then used. The defect measured 2 x 3 cm and a full-thickness skin graft to fit was harvested from the upper inner arm using 1% lidocaine with epinephrine. It was excised in an elliptical pattern. The fat tissue was removed and it was secured in place, was tailored to fit and this was done with running interrupted 4-0 chromic sutures. There was spacing left as well as a small area in the middle for any drainage. The donor site was closed using deep 4-0 Vicryl sutures and a running 4-0 nylon suture. The hand and arm were all thoroughly cleansed and dried. Sterile compression dressing that was not circumferential was placed around over the donor site. Xeroform was applied and molded around the recipient site and then a very well-padded, well molded sterilely dressed short-arm cast was applied just past the PIP joint of the index through small fingers with padding everywhere, no rough edges, no sharp edges and no pressure points. The gentle tourniquet around the forearm was released and the hand and all the fingers on the left became immediately soft, pink and warm and had brisk capillary refill of less than 2 seconds. There was no evidence of any bleeding or hematoma formation prior to placement of the dressing. The patient was awakened from anesthesia and transported to the Post-Anesthesia Care Unit awake and in stable condition. Sponge, needle and instrument counts were correct at the end of the case as reported by nurses in the room. MD BETTINA Nunez III/CHI /3:59 PM /12:39 PM
--- NOTE | 2017-03-09 12:50 | PD.TTN ---
Present for Treatment Team Treatment Team Staff: Provider (Dr. Burnett), Nurse (Norma), Psych Therapist ( JULIANE Mccurdy) Patient Problems 1. Discharge planning 2. Medication compliance 3. Knowledge deficit 4. Lack of coping skills Progress Toward Goals Provider Input: Dr. Burnett inquired regarding patient's discharge plan following hand surgery and requested that this counselor work with the medical floor to plan a safe and appropriate discharge. Dr. Burnett reported the patient does not meet criteria to be readmitted to the psychiatric unit following hand surgery. Psych Therapist Input: Counselor reported the patient is presently on the medical floor undergoing hand surgery to remove what appeared to be a large skin cancer lesion on his hand. Counselor reported the patient will most likely be discharged from the medical floor [place] per Dr. Burnett's report, the patient does not meet criteria to be transferred back to the psychiatric in-patient unit. Documentation Scribe: JULIANE Mccurdy Date Resolved: Mar 08, 2017 Diamond Randolph Mar 09, 2017 12:50
[2017-03-09] MEDS: LORazepam 0.5 MG TAB age > 65 yrs PO PRN (15:43)
[2017-03-09 18:00] VITALS: BP 167/77; PULSE 88; RESP 16; TEMP 97.6; O2SAT 98
[2017-03-10 06:00] VITALS: BP 145/67; PULSE 65; RESP 17; TEMP 97.4
[2017-03-10] MEDS: DONEPEZIL HCL 5 MG TAB PO SCH ×2 (09:00→21:00)
[2017-03-10] MEDS: amLODIPine BESYLATE 5 MG TAB PO SCH (11:15)
[2017-03-10] MEDS: risperiDONE 0.5 MG TAB PO SCH ×2 (11:15→21:09)
[2017-03-10] MEDS: MEMANTINE HCL 10 MG TAB PO SCH ×2 (11:16→21:09)
[2017-03-10] MEDS: ACETAMINOPHEN/HYDROcodone 325 MG/5 MG TAB PO PRN ×2 (16:07→21:09)
[2017-03-10 18:00] VITALS: BP 135/68; PULSE 57; RESP 17; TEMP 98.7; O2SAT 97
[2017-03-10 20:30] VITALS: PULSE 80
[2017-03-10] MEDS: LORazepam 0.5 MG TAB age > 65 yrs PO PRN (21:09)
[2017-03-10] MEDS: traZODone HCL 50 MG TAB PO PRN (23:55)
[2017-03-11 05:45] VITALS: BP 146/67; PULSE 68; RESP 15; O2SAT 96
[2017-03-11] MEDS: MEMANTINE HCL 10 MG TAB PO SCH ×2 (08:54→20:46)
[2017-03-11] MEDS: amLODIPine BESYLATE 5 MG TAB PO SCH (08:54)
[2017-03-11] MEDS: DONEPEZIL HCL 5 MG TAB PO SCH ×2 (08:54→20:46)
[2017-03-11] MEDS: risperiDONE 0.5 MG TAB PO SCH ×2 (08:54→20:46)
[2017-03-11] MEDS: ACETAMINOPHEN/HYDROcodone 325 MG/5 MG TAB PO PRN (20:46)
[2017-03-11] MEDS: traZODone HCL 50 MG TAB PO PRN (20:46)
[2017-03-12 06:00] VITALS: BP 157/70; PULSE 82; RESP 17; TEMP 97.6; O2SAT 92
[2017-03-12] MEDS: DONEPEZIL HCL 5 MG TAB PO SCH ×2 (09:00→21:00)
[2017-03-12] MEDS: MEMANTINE HCL 10 MG TAB PO SCH ×2 (09:59→21:24)
[2017-03-12] MEDS: risperiDONE 0.5 MG TAB PO SCH (10:00)
[2017-03-12] MEDS: amLODIPine BESYLATE 5 MG TAB PO SCH (10:00)
[2017-03-13 05:32] VITALS: BP 135/64; PULSE 62; RESP 18; TEMP 97.7; O2SAT 92
[2017-03-13] MEDS: risperiDONE 0.5 MG TAB PO SCH (08:40)
[2017-03-13] MEDS: MEMANTINE HCL 10 MG TAB PO SCH ×2 (08:40→20:34)
[2017-03-13] MEDS: DONEPEZIL HCL 5 MG TAB PO SCH ×2 (08:40→20:34)
[2017-03-13] MEDS: amLODIPine BESYLATE 5 MG TAB PO SCH (08:40)
--- NOTE | 2017-03-13 13:51 | HHI.PR ---
Subjective Remarks No new complaints. Objective Vitals Vital Signs Date Time Temp Pulse Resp B/P Pulse Ox O2 Delivery O2 Flow Rate FiO2 03/13/17 05:32 97.7 62 18 135/64 92 03/12/17 03/12/17 03/13/17 15:00 23:00 07:00 Intake Total 480 ml Balance 480 ml Intake Oral 480 ml # Voids 2 2 Imaging Last Impressions Hand X-Ray 02/27/17 0000 Signed Impressions: Service Date/Time: Monday, February 27, 2017 13:55 - CONCLUSION: Primary degenerative changes at the first carpal metacarpal joint. No acute fracture or joint dislocation. Addy Pedroza MD Pelvis X-Ray 02/22/17 0000 Signed Impressions: Service Date/Time: Wednesday, February 22, 2017 10:16 - CONCLUSION: Negative for fracture. John Odell MD FACR Objective Remarks GENERAL: This is a well-nourished, well-developed patient, in no apparent distress. CARDIOVASCULAR: Regular rate and rhythm without murmurs, gallops, or rubs. RESPIRATORY: Clear to auscultation. Breath sounds equal bilaterally. No wheezes , rales, or rhonchi. GASTROINTESTINAL: Abdomen soft, non-tender, nondistended. Normal active bowel sounds MUSCULOSKELETAL: Extremities without clubbing, cyanosis, or edema. NEURO: Alert & Oriented x4 to person, place, time, situation. Moves all ext x4 Skin: decubitus ulcer at left buttock pink partial thickness wound, 7cm x 2cm, less than 0.1cm depth appears improved from 2 weeks ago, but still quite large and prominent A/P Problem List: (1) Decubitus ulcer of left buttock, stage 2 Status: Acute Plan: - Pt seen by [facility] wound care - continue xeroform - f/u with [facility] Wound Care clinic - Pt would be best served by going to SNF following discharge rather than home so that pt could receive inpt nursing care and attention to his wound. - I am concerned that if pt is discharge to home the wound may deteriorate - family had arranged for LONG TERM - I continue to feel that a SNF with daily wound care and 24 hour nursing would be more appropriate. - I discussed the above with pt's daughter, Tessa Jolley. (2) Nodule of finger of left hand Status: Acute Plan: - nodule resected by Dr. Bell - pathology shows squamous cell cancer - Pt will need to f/u with Dr. Bell (3) HTN (hypertension), benign Status: Chronic Plan: - stable - norvasc (4) Alzheimer's dementia Status: Chronic Plan: - namenda, aricept - comgmt with Psychiatry Problem Qualifiers (1) Alzheimer's dementia: Qualified Code: G30.8 - Alzheimer's dementia with behavioral disturbance, unspecified timing of dementia onset Tommie Herman DO Mar 13, 2017 13:51
[2017-03-13 16:44] VITALS: BP 141/72; PULSE 77; RESP 18; TEMP 99.6; O2SAT 91
[2017-03-14 06:03] VITALS: BP 135/68; PULSE 79; RESP 20; TEMP 97.9; O2SAT 96
[2017-03-14] MEDS: amLODIPine BESYLATE 5 MG TAB PO SCH (08:33)
[2017-03-14] MEDS: MEMANTINE HCL 10 MG TAB PO SCH ×2 (08:34→21:00)
[2017-03-14] MEDS: DONEPEZIL HCL 5 MG TAB PO SCH ×2 (08:35→21:00)
[2017-03-14] MEDS: risperiDONE 0.5 MG TAB PO SCH (08:36)
[2017-03-14 17:55] VITALS: BP 92/56; PULSE 73; RESP 17; O2SAT 96
[2017-03-15 06:00] VITALS: BP 134/91; PULSE 86; RESP 16; TEMP 98.6
[2017-03-15] MEDS: amLODIPine BESYLATE 5 MG TAB PO SCH (08:53)
[2017-03-15] MEDS: DONEPEZIL HCL 5 MG TAB PO SCH ×2 (08:53→21:56)
[2017-03-15] MEDS: MEMANTINE HCL 10 MG TAB PO SCH ×2 (08:53→21:56)
[2017-03-15] MEDS: LORazepam 2 MG/ML VIAL - age > 65 yrs IM PRN (10:15)
--- NOTE | 2017-03-15 14:42 | PD.TTN ---
Present for Treatment Team Treatment Team Staff: Provider (Dr. Burnett), Nurse (Obi), Psych Therapist ( [facility]), Occupational Therapist (Nick) Patient Problems 1. Discharge planning 2. Medication compliance 3. Knowledge deficit 4. Lack of coping skills Progress Toward Goals Provider Input: Dr. Burnett inquired regarding the status of patient's discharge to a [facility] rehabilitation facility for continued wound care related to the sore on patient's buttock. Dr. Burnett reported that he viewed the patient's wound yesterday and it appeared to be healing. Dr. Burnett inquired regarding patient's ability to be discharged to [facility] with home health care to address patient's wound care. Dr. Burnett requested this counselor speak to patient's daughter and request she put in writing that she is in agreement with the plan to discharge patient to [facility] with home health care services to address wound care and that she (Sally) understood that the patient's wound would be cared for by home health caretakers. Nurse Input: Norma reported that she dressed the patient's wound today and the wound appears to be improving. Nurse noted that the patient's skin was intact without drainage. Psych Therapist Input: Counselor reported the patient has been denied placement at the following [facility] rehabilitation facilities: [facility], [facility], [facility], [facility], and [facility], based on patient's previous behaviors. Counselor reported the patient was assessed in person today by staff from [facility] and the facility again denied placement. Counselor reported the patient has been denied admission to two rehab facilities outside [facility]: [facility] and [facility], due to insurance coverage being denied. Counselor spoke to patient's daughter, Sally, who reported she is in agreement with patient being discharged to [facility] and home health care caring for patient's wound. Occupational Therapist Input: Nick reported the patient has not been participating in recreational groups or activities. Additional Input Patient was present in the treatment team meeting and when asked by Dr. Burnett "how are you doing" patient stated "underground, I've just been soaping up." When asked by Dr. Burntet "how is your had feeling" patient stated "good show." When asked by Dr. Burnett if patient was "eating well" patient stated "yeah, that' s my home." Patient presented alert and oriented to person only. His mood appeared pleasantly confused with a flat affect. Documentation Scribe: JULIANE Mccurdy Date Resolved: Mar 15, 2017 Diamond RandolphShaan Mar 15, 2017 14:42
[2017-03-15 18:29] VITALS: BP 140/61; PULSE 70; RESP 18; TEMP 98.4; O2SAT 98
[2017-03-15] MEDS: ACETAMINOPHEN/HYDROcodone 325 MG/5 MG TAB PO PRN (21:56)
[2017-03-15] MEDS: risperiDONE 0.5 MG TAB PO SCH (21:56)
[2017-03-15] MEDS: traZODone HCL 50 MG TAB PO PRN (21:56)
[2017-03-16 05:58] VITALS: BP 139/63; PULSE 61; RESP 18; TEMP 97.7
[2017-03-16] MEDS: DONEPEZIL HCL 5 MG TAB PO SCH ×2 (09:11→21:41)
[2017-03-16] MEDS: MEMANTINE HCL 10 MG TAB PO SCH ×2 (09:11→21:40)
[2017-03-16] MEDS: amLODIPine BESYLATE 5 MG TAB PO SCH (09:11)
[2017-03-16 17:30] VITALS: BP 127/94; PULSE 55; RESP 16; TEMP 97.4; O2SAT 94
[2017-03-16 18:47] VITALS: BP 134/65; PULSE 67; RESP 18; TEMP 97.9; O2SAT 100
[2017-03-16] MEDS: risperiDONE 0.5 MG TAB PO SCH (21:40)
[2017-03-16] MEDS: traZODone HCL 50 MG TAB PO PRN (21:43)
[2017-03-17 06:53] VITALS: BP 124/61; PULSE 70; RESP 18; TEMP 97.2; O2SAT 97
[2017-03-17] MEDS: amLODIPine BESYLATE 5 MG TAB PO SCH (08:55)
[2017-03-17] MEDS: DONEPEZIL HCL 5 MG TAB PO SCH (08:55)
[2017-03-17] MEDS: MEMANTINE HCL 10 MG TAB PO SCH (08:55)
[2017-03-17] MEDS ORDERED: AMLO5 PO (14:55)
[2017-03-17] MEDS ORDERED: RISP0.5T20 PO (14:55)
[2017-03-17] MEDS ORDERED: NAME10TA PO (14:55)
[2017-03-17] MEDS ORDERED: ARIC5TAB2 PO (14:55)
--- NOTE | 2017-03-17 15:34 | MD ---
cc: GUILHERME THOMPSON M.D. ADMISSION DATE: 02/18/2017 DISCHARGE DATE: 03/08/2017 ADMISSION DIAGNOSIS [place] I: Dementia with agitation. [place] II: No diagnosis. [place] III: Hypertension, chronic kidney disease stage II, benign hypertrophy of the prostate, COPD, mass left second finger. [place] IV: Severity of psychosocial stressors moderate, i.e., multiple medical problems, cognitive deficits. [place] V: Current GAF score 30. DISCHARGE DIAGNOSIS [place] I: Dementia with agitation. [place] II: No diagnosis. [place] III: Hypertension, chronic kidney disease stage II, benign hypertrophy of the prostate, COPD, mass left second finger, small ulcerated area left buttock healing. [place] IV: Severity of psychosocial stressors moderate, i.e., multiple medical problems, cognitive deficits. [place] V: Current GAF score 40. BRIEF HISTORY This 81-year-old white male was brought to the emergency room of this hospital under the [place] Act initiated by the police because of aggressive assaultive behavior towards his . He carries a diagnosis of Alzheimer's disease and has been increasingly getting more confused and belligerent. He was initially admitted by Dr. Ely in my absence and was later transferred onto my service. Please refer to Dr. Ely's initial evaluation and my admission notes for details. LABORATORY DATA CBC with differential was unremarkable. CMP was also unremarkable. T4 and TSH was normal. Routine urinalysis was unremarkable. IMAGING DATA X-ray of the hand on 02/19/2017 showed focal soft tissue swelling/mass at the base of the left second digit without underlying bony lesion. X-ray of the hand on 03/09/2017 showed primary degenerative changes at the first carpal metacarpal joint. No acute fracture or joint dislocation. X-ray of the pelvis was unremarkable. EKG DATA EKG showed first-degree AV block, right axis deviation, right bundle branch block. HOSPITAL COURSE When initially evaluated he presented as a poorly groomed and unkempt in a wheelchair. His responses to questions were irrelevant. He displayed marked cognitive deficits. To control his agitation he was started on a small dose of Risperdal and Ativan was used as a p.r.n. His agitation subsided gradually and towards the end of this hospital stay he actually became quite pleasant and even verbalized appreciation. On occasion he was observed smiling. On some days he was able to respond to questions with appropriate answers. He was followed medically by Dr. Herman. Also he was followed by Dr. Bell in regards to the mass on his left second finger which was later on removed by Dr. Bell. He tolerated the procedure well. In addition, he also developed a lesion on his buttocks for which Wound Care was consulted. Dr. Herman also followed him from this standpoint. After the hand surgery he was brought back to the psych unit as there was no group home placement available for him. I had frequent telephone conversations with his daughter, Sally, and I gave her feedback regarding the patient's condition and we discussed discharge plans. Dr. Herman had recommended a retirement facility for better wound care and as such he was kept in the hospital for several days; however, unfortunately no such placement could be arranged as he was turned down by five nursing homes. The situation was discussed with the patient's daughter by myself and Cecy the social services coordinator. The daughter all along had preferred placement in an assisted living facility but was also supportive of transfer to a retirement facility when explained the reason. However, considering the current situation that no group home would accept him and there was no need for continued hospital stay, she agreed and as a matter of fact preferred transfer to an assisted-living facility called [facility] with assistance from a home health nurse/wound care. At the time of discharge his wound is healing very well and there is no sign of infection. He is denying any suicidal or homicidal ideations. He is not exhibiting acute psychotic symptoms. DISCHARGE MEDICATIONS 1. Norvasc 5 mg p.o. daily, #30. 2. Aricept 10 mg p.o. b.i.d., #60. 3. Namenda 10 mg p.o. b.i.d., #60. 4. Risperdal 0.5 mg p.o. q.h.s., #30. He is to follow-up with his primary care physician and with Dr. Bell. In addition as mentioned he will be followed by a home health nurse and physical therapist. He will follow-up with the psychiatrist at [facility]. MD FIONA Mata/SUSU /3:03 PM /3:22 PM
== END 2017-03-17 15:21 | DRG 988 ==
LOC: NEPD 18:51 → NEDA 22:05 → H260 22:47 → H250 02-19 14:20 → UNDODISIN 03-08 16:16
PROVIDERS: ADMIT Psychiatry & Neurology Psychiatry; ATTEND Psychiatry & Neurology Psychiatry
PROC: 0JBK0ZZ Excision of Left Hand Subcutaneous Tissue and Fascia, Open Approach (ICD-10-PCS; principal; 2017-03-08 14:05)
DX: G30.9 Alzheimer's disease, unspecified (principal); F02.81 Dementia in other diseases classified elsewhere, unspecified severity, with behavioral disturbance; L89.322 Pressure ulcer of left buttock, stage 2; C49.12 Malignant neoplasm of connective and soft tissue of left upper limb, including shoulder; J44.9 Chronic obstructive pulmonary disease, unspecified; Z91.83 Wandering in diseases classified elsewhere; H91.90 Unspecified hearing loss, unspecified ear; I12.9 Hypertensive chronic kidney disease with stage 1 through stage 4 chronic kidney disease, or unspecified chronic kidney disease; N18.2 Chronic kidney disease, stage 2 (mild); N40.0 Benign prostatic hyperplasia without lower urinary tract symptoms; I44.0 Atrioventricular block, first degree; I45.10 Unspecified right bundle-branch block
CPT/HCPCS: 72170; 73120; 73130; 80048; 80053; 80061; 81001; 83036; 84439; 84443; 85025; 88305; 93005; 96374; J1130; J1200; J1630; J2060; J2405; J3010; J3370; J7120; Q0163

== ENCOUNTER → 2017-03-08 | Day surgery (SDC) | payer MEDICARE, OTHER ==
[~2017-03-08] MED LIST changes: +ARIC10TA2 PO; -ARIC5TAB PO; -DONE5TAB14 PO; -MEMA10 PO; -NORV5TAB PO; -RISP.5 PO; -RISP0.252 PO; +RISP1 PO; +TRAM50TA PO
== END | disposition home or self-care (01) ==
LOC: HSDC 17:25
PROVIDERS: ATTEND Orthopaedic Surgery Hand Surgery
DX: M79.89 Other specified soft tissue disorders (principal)

== ENCOUNTER 2017-04-02 22:30 | Inpatient (IN) | payer MEDICARE, OTHER ==
[~2017-04-02] VITALS: Ht 190.5 cm; Wt 85.7 kg
[~2017-04-02 22:30] MED LIST changes: -ARIC10TA2 PO; +ARIC5TAB2 PO; +RISP0.5T20 PO
[2017-04-02 22:45] VITALS: BP 110/58; PULSE 85; RESP 18; TEMP 99; O2SAT 96
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
[2017-04-02 23:12] LABS: AUTOMATED NEUTROPHIL # 6.3 TH/MM3 (1.8-7.7); BASOPHIL % 0.3 % (0.0-2.0); EOSINOPHIL % 0.4 % (0.0-4.0); HEMO FLAGS DIFF FINAL; LYMPH % 22.5 % (9.0-44.0); MEAN CELL VOLUME 94.1 FL (80.0-100.0); MEAN CORPUSCULAR HEMOGLOBIN 31.3 PG (27.0-34.0); MEAN CORPUSCULAR HGB CONC 33.3 % (32.0-36.0); MONO % 7.2 % (0.0-8.0); NEUT % 69.6 % (16.0-70.0); PLATELET COUNT 202 TH/MM3 (150-450); RED BLOOD COUNT 4.14 MIL/MM3 (4.50-5.90); RED CELL DISTRIBUTION WIDTH 13.8 % (11.6-17.2)
[2017-04-02 23:26] LABS: ALT (GPT) 15 U/L (12-78); ANION GAP 6 MEQ/L (5-15); AST (GOT) 18 U/L (15-37); BICARBONATE 28.6 MEQ/L (21.0-32.0); BLOOD UREA NITROGEN 14 MG/DL (7-18); CHLORIDE 108 MEQ/L (98-107); GLOMERULAR FILTRATION RATE 56 ML/MIN (>89); POTASSIUM 3.7 MEQ/L (3.5-5.1); SODIUM (NA) 143 MEQ/L (136-145)
[2017-04-02 23:29] LABS: ALKALINE PHOSPHATASE 84 U/L (45-117); TOTAL BILIRUBIN ADULT 0.3 MG/DL (0.2-1.0)
[2017-04-02 23:30] LABS: ALCOHOL LESS THAN 3 MG/DL (0-5)
[2017-04-03 01:46] LABS: BLOOD, URINE SMALL (NEG); GLUCOSE,URINE NEG (NEG); HYALINE CAST, URINE 2 /lpf (RARE); KETONE, URINE NEG (NEG); MUCUS URINE FEW /lpf (OCC); NITRITE,URINE NEG (NEG); RENAL EPITHELIAL CELLS 1 /hpf; URINE COLOR YELLOW (YELLW/STRAW)
[2017-04-03 01:47] LABS: COMMENT (UR) CULT NOT INDICATED; CULTURE IF INDICATED CULT NOT INDICATED
[2017-04-03] MEDS ORDERED: LORazepam 2 MG/ML VIAL IM ONE (02:15)
[2017-04-03] MEDS ORDERED: MILKSUS PO (02:45)
[2017-04-03] MEDS ORDERED: RULOSUS PO (02:45)
[2017-04-03] MEDS ORDERED: LORA-392 PO (02:45)
[2017-04-03] MEDS ORDERED: LORA2INJ2 IM (02:45)
[2017-04-03] MEDS ORDERED: TYLE325T PO (02:45)
[2017-04-03] MEDS ORDERED: CLON0.2T PO (02:45)
[2017-04-03] MEDS ORDERED: diphenhydrAMINE HCL 50 MG/ML VIAL ONE (03:21)
[2017-04-03] MEDS ORDERED: diphenhydrAMINE HCL 50 MG/ML VIAL IM ONE (03:45)
[2017-04-03 11:01] VITALS: PULSE 58; RESP 18; O2SAT 98
[2017-04-03 16:50] VITALS: BP 146/58; PULSE 65; RESP 16; O2SAT 99
[2017-04-03] MEDS ORDERED: ALUMINUM/MAGNESIUM/SIMETH 30 ML CUP PO PRN (18:00)
[2017-04-03] MEDS ORDERED: LORazepam 2 MG/ML VIAL IM PRN (18:00)
[2017-04-03] MEDS ORDERED: MAGNESIUM HYDROXIDE SUSP 30 ML CUP PO PRN (18:00)
[2017-04-03] MEDS ORDERED: ACETAMINOPHEN 325 MG TAB PO PRN (18:00)
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
[2017-04-03 18:35] VITALS: BP 138/64; PULSE 55; RESP 18; TEMP 99.1; O2SAT 97
[2017-04-03] MEDS: risperiDONE 0.5 MG TAB PO SCH (21:00)
[2017-04-03] MEDS: MEMANTINE HCL 10 MG TAB PO SCH (22:36)
[2017-04-03] MEDS: cloNIDine HCL 0.2 MG TAB PO SCH ×2 (22:36→23:53)
[2017-04-03] MEDS: LORazepam 1 MG TAB PO PRN (22:36)
[2017-04-03] MEDS: traMADol HCL 50 MG TAB PO PRN (22:37)
[2017-04-04 05:30] VITALS: BP 154/71; PULSE 53; RESP 18; TEMP 97.8; O2SAT 95
[2017-04-04] MEDS: cloNIDine HCL 0.2 MG TAB PO SCH ×3 (06:22→16:58)
[2017-04-04 08:44] LABS: ALT (GPT) 18 U/L (12-78); ANION GAP 8 MEQ/L (5-15); AST (GOT) 25 U/L (15-37); BICARBONATE 28.7 MEQ/L (21.0-32.0); BLOOD UREA NITROGEN 12 MG/DL (7-18); CHLORIDE 105 MEQ/L (98-107); GLOMERULAR FILTRATION RATE 68 ML/MIN (>89); POTASSIUM 4.2 MEQ/L (3.5-5.1); SODIUM (NA) 142 MEQ/L (136-145)
[2017-04-04 08:57] LABS: ALKALINE PHOSPHATASE 74 U/L (45-117); HDL CHOLESTEROL 51.1 MG/DL (40.0-60.0); LDL CHOLESTEROL 118 MG/DL (0-99); TOTAL BILIRUBIN ADULT 0.5 MG/DL (0.2-1.0)
[2017-04-04] MEDS: amLODIPine BESYLATE 5 MG TAB PO SCH (09:49)
[2017-04-04] MEDS: MEMANTINE HCL 10 MG TAB PO SCH ×2 (09:49→20:35)
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
[2017-04-04 15:58] VITALS: BP 123/59; PULSE 48; RESP 18; TEMP 97.9
[2017-04-04 16:19] LABS: HEMOGLOBIN A1b 1.5 %; HEMOGLOBIN Ao 86.8 %; HEMOGLOBIN LA1C 1.9 %; HEMOGLOBIN P3 3.4 %
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
[2017-04-04] MEDS: traMADol HCL 50 MG TAB PO PRN (20:36)
[2017-04-04] MEDS: LORazepam 1 MG TAB PO PRN (20:36)
[2017-04-04] MEDS: risperiDONE 0.5 MG TAB PO SCH (20:36)
[2017-04-05 05:05] VITALS: BP 126/61; PULSE 47; RESP 15; TEMP 97.6; O2SAT 98
[2017-04-05] MEDS: cloNIDine HCL 0.2 MG TAB PO SCH ×3 (05:18→12:00)
--- NOTE | 2017-04-05 08:32 | EKG ---
Date Performed: 04/04/2017 Time Performed: 13:53:29 PTAGE: 81 years EKG: SINUS BRADYCARDIA WITH SINUS ARRHYTHMIA WITH FIRST DEGREE AV BLOCK RIGHT BUNDLE BRANCH BLOC K LEFT ANTERIOR FASCICULAR BLOCK ABNORMAL ECG PREVIOUS TRACING : 03/08/2017 13.52 DOCTOR: Brendon Nicholson Interpretating Date/Time 04/05/2017 08:28:43
[2017-04-05] MEDS: amLODIPine BESYLATE 5 MG TAB PO SCH (09:00)
[2017-04-05] MEDS: MEMANTINE HCL 10 MG TAB PO SCH ×2 (09:00→20:17)
[2017-04-05] MEDS: LORazepam 1 MG TAB PO PRN (09:52)
[2017-04-05 13:19] VITALS: BP 146/65; PULSE 50
--- NOTE | 2017-04-05 14:47 | PD.TTN ---
Present for Treatment Team Treatment Team Staff: Provider (DR JOYNER), Nurse (Anastasiya), Psych Therapist ( Barb ) Patient Problems 1. Discharge planning 2. Medication compliance 3. Knowledge deficit 4. Lack of coping skills Progress Toward Goals Provider Input: Pt just came was difficult to place last time Nurse Input: Pt has been sleeping Psych Therapist Input: heard from intake counselor he can return to facility once stable will clarify return to [facility] after speaking with granddaughter Barb Mayo [place] ALDERMAN Apr 05, 2017 14:47
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
[2017-04-05] MEDS: LORazepam 0.5 MG TAB PO PRN (20:08)
[2017-04-05] MEDS: risperiDONE 0.5 MG TAB PO SCH (20:17)
[2017-04-05 21:39] VITALS: BP 115/61; PULSE 60; RESP 16; TEMP 98.1; O2SAT 94
[2017-04-06 06:04] VITALS: BP 138/64; PULSE 76; RESP 19; TEMP 99; O2SAT 96
[2017-04-06 08:40] LABS: AUTOMATED NEUTROPHIL # 11.1 TH/MM3 (1.8-7.7); BASOPHIL % 0.2 % (0.0-2.0); EOSINOPHIL % 0.2 % (0.0-4.0); HEMATOCRIT 42.8 % (39.0-51.0); HEMO FLAGS DIFF FINAL; LYMPH % 9.5 % (9.0-44.0); LYMPHOCYTE # 1.3 TH/MM3 (1.0-4.8); MEAN CELL VOLUME 93.3 FL (80.0-100.0); MEAN CORPUSCULAR HEMOGLOBIN 32.4 PG (27.0-34.0); MEAN CORPUSCULAR HGB CONC 34.7 % (32.0-36.0); MONO % 7.8 % (0.0-8.0); NEUT % 82.3 % (16.0-70.0); PLATELET COUNT 165 TH/MM3 (150-450); RED BLOOD COUNT 4.59 MIL/MM3 (4.50-5.90); RED CELL DISTRIBUTION WIDTH 13.6 % (11.6-17.2); WHITE BLOOD COUNT 13.5 TH/MM3 (4.0-11.0)
[2017-04-06] MEDS: MEMANTINE HCL 10 MG TAB PO SCH ×2 (09:00→20:11)
[2017-04-06] MEDS: amLODIPine BESYLATE 5 MG TAB PO SCH (09:00)
[2017-04-06 19:16] VITALS: BP 117/58; PULSE 65; RESP 16; TEMP 98.1; O2SAT 95
[2017-04-06] MEDS: LORazepam 0.5 MG TAB PO PRN (20:10)
[2017-04-06] MEDS: risperiDONE 0.5 MG TAB PO SCH (20:11)
--- NOTE | 2017-04-06 21:38 | HHI.HCPN ---
Reason for visit a. To assist with evaluation and management of symptoms including:agitation b. To assist medical decision maker(s) with: better understanding of current medical conditions; weighing benefits/burdens of medical treatment options; making medical treatment decisions. Subjective/Interval History Patient is verbal but is confused and cannot provide history. Psychiatry staff reports that overall patient has been cooperative and pleasant . They report a couple of occasions where he has appeared to strike out at someone when involved in his care. Patient is sitting up in a chair in the dining area and feeding himself at time of my visit. He smiles and shakes my hand when I introduce myself. . Family/friend interactions Family had agreed to come in for a family meeting at 3:30 PM. They then called and said they could be there at 4:30 PM. I went down to meet them but left after visiting the patient and waiting on floor for an additional 20 minutes. They called later that evening. We re-scheduled for 3:30PM on 04/07/17. . Advance Directives Durable Power of Slug Press Operator: Completed, but not made available (pt may have a POA which may? include [facility], do not have copies of this document) Objective Vital Signs Date Time Temp Pulse Resp B/P Pulse Ox O2 Delivery O2 Flow Rate FiO2 04/06/17 19:16 98.1 65 16 117/58 95 04/06/17 06:04 99.0 76 19 138/64 96 04/05/17 21:39 98.1 60 16 115/61 94 Intake & Output 04/06/17 04/06/17 06:59 18:59 Intake Total 360 ml 360 ml Balance 360 ml 360 ml Intake Oral 360 ml 120 ml Oral Supplement 240 ml # Voids 3 . Physical Exam CONSTITUTIONAL/GENERAL: This is an adequately nourished patient, in no apparent distress.Up in viktoriya chair in dayroom feeding himself. Smiles. No apparent distress. No obvious agitation. TUBES/LINES/DRAINS:PIV upper extremity. SKIN: No jaundice, rashes, or lesions. Cast now off. No wounds seen anteriorly. Skin temperature appropriate. Not diaphoretic. HEAD: Atraumatic. Normocephalic. EYES: Pupils equal and round. Extraocular motions intact. No scleral icterus. No injection or drainage. Fundi not examined. ENT: Hard of hearing. Nose without bleeding or purulent drainage. NECK: Trachea midline. Supple, nontender. CARDIOVASCULAR: Regular rate and rhythm without murmurs. No JVD. Peripheral pulses symmetric. RESPIRATORY/CHEST: Symmetric, unlabored respirations. On room air. Clear to auscultation. Breath sounds equal bilaterally. GASTROINTESTINAL: Abdomen soft, non-tender, nondistended. No palpable masses- palp somewhat limited due to upright in chair. No guarding. Bowel sounds present. MUSCULOSKELETAL: Extremities without clubbing, cyanosis, or edema. LYMPHATICS: Not examined. NEUROLOGICAL: Awake and alert. Confused. follows some simple commands. Verbal , but not making sense. PSYCHIATRIC: No obvious anxiety/depression. no apparent hallucinations or other psychotic thought process. Diagnostic Tests Laboratory Laboratory Tests Test 04/04/17 04/06/17 07:01 08:08 Sodium Level 142 MEQ/L (136-145) Potassium Level 4.2 MEQ/L (3.5-5.1) Chloride Level 105 MEQ/L (98-107) Carbon Dioxide Level 28.7 MEQ/L (21.0-32.0) Anion Gap 8 MEQ/L (5-15) Blood Urea Nitrogen 12 MG/DL (7-18) Creatinine 1.05 MG/DL (0.60-1.30) Estimat Glomerular Filtration 68 ML/MIN (>89) Rate Random Glucose 116 MG/DL (74-106) Hemoglobin A1c 4.8 % (4.3-6.0) Calcium Level 9.0 MG/DL (8.5-10.1) Total Bilirubin 0.5 MG/DL (0.2-1.0) Aspartate Amino Transf 25 U/L (15-37) (AST/SGOT) Alanine Aminotransferase 18 U/L (12-78) (ALT/SGPT) Alkaline Phosphatase 74 U/L (45-117) Total Protein 6.9 GM/DL (6.4-8.2) Albumin 3.4 GM/DL (3.4-5.0) Triglycerides Level 73 MG/DL (42-150) Cholesterol Level 184 MG/DL (120-200) LDL Cholesterol 118 MG/DL (0-99) HDL Cholesterol 51.1 MG/DL (40.0-60.0) Cholesterol/HDL Ratio 3.60 RATIO Vitamin B12 Level 345 PG/ML (193-986) 25-Hydroxy Vitamin D Total 17.2 ng/ML (30-100) Thyroid Stimulating Hormone 4.450 uIU/ML 3rd Gen (0.358-3.740) White Blood Count 13.5 TH/MM3 (4.0-11.0) Red Blood Count 4.59 MIL/MM3 (4.50-5.90) Hemoglobin 14.9 GM/DL (13.0-17.0) Hematocrit 42.8 % (39.0-51.0) Mean Corpuscular Volume 93.3 FL (80.0-100.0) Mean Corpuscular Hemoglobin 32.4 PG (27.0-34.0) Mean Corpuscular Hemoglobin 34.7 % Concent (32.0-36.0) Red Cell Distribution Width 13.6 % (11.6-17.2) Platelet Count 165 TH/MM3 (150-450) Mean Platelet Volume 8.6 FL (7.0-11.0) Neutrophils (%) (Auto) 82.3 % (16.0-70.0) Lymphocytes (%) (Auto) 9.5 % (9.0-44.0) Monocytes (%) (Auto) 7.8 % (0.0-8.0) Eosinophils (%) (Auto) 0.2 % (0.0-4.0) Basophils (%) (Auto) 0.2 % (0.0-2.0) Neutrophils # (Auto) 11.1 TH/MM3 (1.8-7.7) Lymphocytes # (Auto) 1.3 TH/MM3 (1.0-4.8) Monocytes # (Auto) 1.1 TH/MM3 (0-0.9) Eosinophils # (Auto) 0.0 TH/MM3 (0-0.4) Basophils # (Auto) 0.0 TH/MM3 (0-0.2) CBC Comment DIFF FINAL Differential Comment . 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 . Also supported by daughter, son, local granddaughter. Grew up in [place], worked in his father's [employer] business. Spiritual:Anabaptist Legal:pt w dementia, currently under barron act. Per court guardian is , per [place] statutes she would be legal proxy unless documents regarding health care POA are obtained. Ethical issues impacting care: . Important Contacts Yany Layton [phone] NATALIA ERWIN dtr [phone] granddaughter [phone] / [phone] jorden . Prognosis This patient was admitted as Barron act for behavioral disturbance, aggressive behaviors. He has had a few Barron act episodes for similar behaviors. He has advanced dementia, though does not appear to be end stage at this time. . Code Status: Full Code Plan * Legal decision maker: pt w dementia, currently under barron act. was named guardian during Bar[place] act hearings. [place] statutes she would be legal proxy unless documents regarding health care POA are obtained. * Goals: Goals are assumed to be aggressive until we are able to meet with legal decision maker to discuss. Palliative care arranged for a family meeting on 04/06/17 but family arrive after we left the floor (waited about 30 minutes) . Family meeting re-scheduled for 04/07/17 at 1530 * CODE STATUS: Full Code by default. SYMPTOMS: --Agitation-patient with advanced dementia, history of violent/aggressive behaviors. In the past responded well to Risperdal, Ativan per psychiatry's notes. Started on Risperdal 0.5 daily at bedtime here. Has 0.5-1 mg Ativan every 6 hours PRN .granddaughter says his confusion/agitation gets worse in evenings, Granddaughter indicates pt prev on Risperdal twice a day, as well a trazodone Q hs --Malnutrition + some weight loss, prior admission 2015 notes weight 100 kg, current admission weight 87 kg/ weight loss of 13 kg/28 pounds in about a year, albumin 3.2/3.4. Good appetite reported today. Granddaughter reports appetite fluctuates. -- pain- potential source would be wound from recent bx left hand-- currently denies pain. will cont to evaluate * Palliative care will continue to follow during hospital course as condition evolves, to assist patient/decision-maker with understanding of medical conditions, weighing benefits/burdens of treatment options, for clarification of goals of treatment. Additionally will assist with any symptoms of palliative concern . Attestation To help prompt me to consider important information that might be impacting today's encounter and assessment, information from prior notes written by myself or my colleagues may have been "brought forward" into today's note. My signature on this note, however, is an attestation that I personally performed the exam, history, and/or decision-making noted today, and, unless otherwise indicated, the interactions with patient, family, and staff as well as the review of records all occurred today. I also attest that the listed assessment and stated plan reflect my best clinical judgment today based on the combination of historical information, prior notes, and today's exam/ interactions. When time spent is documented, it refers only to time spent today by the signer, or if indicated, combined time spent today by collaborating physician/nurse practitioner. . Eddie Salazar MD Apr 06, 2017 21:38
[2017-04-07 06:01] VITALS: BP 161/74; PULSE 87; RESP 17; TEMP 97.7; O2SAT 94
[2017-04-07] MEDS: traMADol HCL 50 MG TAB PO PRN (09:19)
[2017-04-07] MEDS: LORazepam 0.5 MG TAB PO PRN (09:19)
[2017-04-07] MEDS: MEMANTINE HCL 10 MG TAB PO SCH ×2 (09:19→22:13)
--- NOTE | 2017-04-07 12:20 | HHI.PR ---
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 His left index finger is healing well. Skin graft is almost fully healed in. There is no obvious recurrence. There is no evidence of any mass effect or epitrochlear or axillary adenopathy in his left upper extremity. Assessment and Plan Problem List: (1) Squamous cell skin cancer, finger Status: Acute Plan: The patient was almost lost to follow-up until he was readmitted. He does have extension to one of the margins of his left index finger of the squamous cell carcinoma. This will require definitively reexcision of the margins and possibly another skin graft. I will wait to see what the disposition of the patient is after the family discussion that's tentatively scheduled for later today with the housestaff and then we'll make our plan. Discussed this with the patient's nurse as well Okay to wash and dry hands normally and use hands as tolerated Ke Bell III, MD Apr 07, 2017 12:20
--- NOTE | 2017-04-07 15:01 | HHI.HCPN ---
Reason for visit a. To assist with evaluation and management of symptoms including:agitation b. To assist medical decision maker(s) with: better understanding of current medical conditions; weighing benefits/burdens of medical treatment options; making medical treatment decisions. (Mary Torres) Subjective/Interval History S/p hand surgery follow up/consultation : Dr Bell notes: "The patient was almost lost to follow-up until he was readmitted. He does have extension to one of the margins of his left index finger of the squamous cell carcinoma. This will require definitively reexcision of the margins and possibly another skin graft. I will wait to see what the disposition of the patient is after the family discussion that's tentatively scheduled for later today with the housestaff and then we'll make our plan." Voicemail received from Dtsadia Santoyo prior to my arrival to unit , that is not feeling well and will not be able to meet in person, family requests conference call meeting at 330pm today. Pt seen in unit, up in Danita chair w tray in day room. He is sleeping soundly does not arouse for my exam. Staff advise he has been sleeping for much of the day. He did not wake up enough for lunch. Did wake for breakfast but required feeding/enc to eat by staff. No reported agitation or uncooperativeness. Patient is sleeping soundly to my exam does not wake up enough to follow my commands. Appears comfortable. Lungs are clear. Left hand now visible where cast previously was, healing scab noted left index finger, no drainage or erythema. . Family/friend interactions Call to dtr, , and granddaughter. Dtr and granddaughter inform that Mrs Layton is in bed too ill to participate today. discussion included: * Palliative care role, team members, reason for consult * Patient cognitive and functional status in the months to weeks prior to this admission * Overall condition, treatments in place, prognosis; much review of dementia progression, likely trajectory * CODE STATUS[]-family believes that he had a DNR in place they are going to talk with the and will notify staff so that medical attending in place DNR over the weekend if that's what wishes are * [place] statutes/legal decision makers. Review that was appointed as guardian per [place] act court proceedings however daughter also indicates that she is appointed healthcare POA. Advised that for now they can all participate in decision-making until we obtain appropriate legal documents. Daughter plans to email me copies of POA documents. When I obtain I will scan/fax to medical records. * Palliative care contact information provided Much review of dementia trajectory. They express that during last acute psychiatric hospitalization February 18 of this year--when he was discharged his medications were decreased and they feel like his behaviors had escalated and gone on at the [facility] since that discharge and due to the decrease in his medication (prev on Risperdal twice a day, as well a trazodone Q hs) review that during acute course thus far he is not demonstrated severe agitation or violent behaviors however psychiatry continues to follow and medication adjustments may be made as indicated. Further review that dementia trajectory can be labile and what works well 1 day or week may not work well another day or week, and dementia behaviors and progression can certainly be compounded by any acute medical issues and/or changes in environment etc. all questions answered. For now goals are aggressive to try to maximize treatment to stabilize his mood and get him discharged when safe. They believe he would want to be DNR they're going to discuss with patient and advise medical attendings over the weekend (palliative care is not here over the weekend). (Mary Torres) Advance Directives Durable Power of Licensed Certified Orthotist: Completed, but not made available (pt may have a POA which may? include [facility], do not have copies of this document) (Mary Torres) Objective Vital Signs Date Time Temp Pulse Resp B/P Pulse Ox O2 Delivery O2 Flow Rate FiO2 04/07/17 06:01 97.7 87 17 161/74 94 04/06/17 19:16 98.1 65 16 117/58 95 Intake & Output 04/07/17 04/07/17 06:59 18:59 Intake Total 480 ml 960 ml Balance 480 ml 960 ml Intake Oral 240 ml 960 ml Oral Supplement 240 ml # Voids 2 2 Physical Exam CONSTITUTIONAL/GENERAL: This is an adequately nourished patient, in no apparent distress.Up in danita chair in dayroom sleeping. No Apparent distress. TUBES/LINES/DRAINS:PIV upper extremity. SKIN: No jaundice, rashes, or lesions. Cast now off. Healing scab left index finger. Skin temperature appropriate. Not diaphoretic. NECK: Trachea midline. Supple, nontender. CARDIOVASCULAR: Regular rate and rhythm without murmurs. No JVD. Peripheral pulses symmetric. RESPIRATORY/CHEST: Symmetric, unlabored respirations. On room air. Clear to auscultation. Breath sounds equal bilaterally. GASTROINTESTINAL: Abdomen soft, non-tender, nondistended. No palpable masses- palp somewhat limited due to upright in chair. No guarding. Bowel sounds present. NEUROLOGICAL: Lethargic, sleeping soundly. Does not arouse or stir for my exam. PSYCHIATRIC: No obvious anxiety/depression--limited assessment due to lethargy. No apparent hallucinations or other psychotic thought process. (Mary Torres) Diagnostic Tests Laboratory Laboratory Tests Test 04/06/17 08:08 White Blood Count 13.5 TH/MM3 (4.0-11.0) Red Blood Count 4.59 MIL/MM3 (4.50-5.90) Hemoglobin 14.9 GM/DL (13.0-17.0) Hematocrit 42.8 % (39.0-51.0) Mean Corpuscular Volume 93.3 FL (80.0-100.0) Mean Corpuscular Hemoglobin 32.4 PG (27.0-34.0) Mean Corpuscular Hemoglobin 34.7 % Concent (32.0-36.0) Red Cell Distribution Width 13.6 % (11.6-17.2) Platelet Count 165 TH/MM3 (150-450) Mean Platelet Volume 8.6 FL (7.0-11.0) Neutrophils (%) (Auto) 82.3 % (16.0-70.0) Lymphocytes (%) (Auto) 9.5 % (9.0-44.0) Monocytes (%) (Auto) 7.8 % (0.0-8.0) Eosinophils (%) (Auto) 0.2 % (0.0-4.0) Basophils (%) (Auto) 0.2 % (0.0-2.0) Neutrophils # (Auto) 11.1 TH/MM3 (1.8-7.7) Lymphocytes # (Auto) 1.3 TH/MM3 (1.0-4.8) Monocytes # (Auto) 1.1 TH/MM3 (0-0.9) Eosinophils # (Auto) 0.0 TH/MM3 (0-0.4) Basophils # (Auto) 0.0 TH/MM3 (0-0.2) CBC Comment DIFF FINAL Differential Comment (Mary Torres) Result Diagram: 04/06/17 0808 04/04/17 0701 Assessment and Plan Disease Oriented Problem List: (1) Alzheimer's dementia (2) Squamous cell carcinoma (3) HTN (hypertension), benign (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 . Also supported by daughter, son, local granddaughter. Grew up in [place], worked in his father's [employer] business. Spiritual:Yarsanism Legal:pt w dementia, currently under barron act. Per court guardian is , per [place] statutes she would be legal proxy unless documents regarding health care POA are obtained. Ethical issues impacting care: . Important Contacts Yany Layton [phone] NATALIA RIP dtr [phone] granddaughter Giulia [phone] / [phone] jorden . Prognosis This patient was admitted as Barron act for behavioral disturbance, aggressive behaviors. He has had a few Barron act episodes for similar behaviors. He has advanced dementia, though does not appear to be end stage at this time. . Code Status: Full Code Plan * Legal decision maker: pt w dementia, currently under barron act. was named guardian during Bar[place] act hearings. [place] statutes she would be legal proxy unless documents regarding health care POA are obtained. Conference call with family 04/07/17 Review that was appointed as guardian per Bar[place] act court proceedings however daughter also indicates that she is appointed healthcare POA. Advised that for now they can all participate in decision-making until we obtain appropriate legal documents. Daughter plans to email me copies of POA documents. When I obtain I will scan/fax to medical records. * Goals: Met with daughter, granddaughter at length today via conference call.Much review of dementia trajectory. They express that during last acute psychiatric hospitalization February 18 of this year--when he was discharged his medications were decreased and they feel like his behaviors had escalated and gone on at the [facility] since that discharge and due to the decrease in his medication (prev on Risperdal twice a day, as well a trazodone Q hs) review that during acute course thus far he is not demonstrated severe agitation or violent behaviors however psychiatry continues to follow and medication adjustments may be made as indicated. Further review that dementia trajectory can be labile and what works well 1 day or week may not work well another day or week, and dementia behaviors and progression can certainly be compounded by any acute medical issues and/or changes in environment etc. all questions answered. For now goals are aggressive to try to maximize treatment to stabilize his mood and get him discharged when safe. They believe he would want to be DNR they're going to discuss with patient and advise medical attendings over the weekend (palliative care is not here over the weekend). * CODE STATUS: Full Code by default. SYMPTOMS: --Agitation-patient with advanced dementia, history of violent/aggressive behaviors. In the past responded well to Risperdal, Ativan per psychiatry's notes. Started on Risperdal 0.5 daily at bedtime here. Has 0.5-1 mg Ativan every 6 hours PRN .granddaughter says his confusion/agitation gets worse in evenings, Granddaughter indicates pt prev on Risperdal twice a day, as well a trazodone Q hs --Malnutrition + some weight loss, prior admission 2016 notes weight 100 kg, current admission weight 87 kg/ weight loss of 13 kg/28 pounds in about a year, albumin 3.2/3.4. Good appetite reported today. Granddaughter reports appetite fluctuates. -- pain- potential source would be wound from recent bx left hand-- currently denies pain. will cont to evaluate * Palliative care will continue to follow during hospital course as condition evolves, to assist patient/decision-maker with understanding of medical conditions, weighing benefits/burdens of treatment options, for clarification of goals of treatment. Additionally will assist with any symptoms of palliative concern . (Mary Torres) Attestation To help prompt me to consider important information that might be impacting today's encounter and assessment, information from prior notes written by myself or my colleagues may have been "brought forward" into today's note. My signature on this note, however, is an attestation that I personally performed the exam, history, and/or decision-making noted today, and, unless otherwise indicated, the interactions with patient, family, and staff as well as the review of records all occurred today. I also attest that the listed assessment and stated plan reflect my best clinical judgment today based on the combination of historical information, prior notes, and today's exam/ interactions. When time spent is documented, it refers only to time spent today by the signer, or if indicated, combined time spent today by collaborating physician/nurse practitioner. (Mary Torres) Collaborating MD Comments Chart reviewed. Case discussed with palliative care STEEL CUTTER. Above note reviewed and I concur. . (Eddie Salazar MD) Mary Torres Apr 07, 2017 15:01 Eddie Salazar MD Jun 04, 2017 11:25
--- NOTE | 2017-04-07 15:24 | HHI.PYPN ---
Subjective Remarks Patient seen in dayroom with medical student Unique, patient drowsy in Danita chair arousable to calm and diffuse confusion disoriented. Patient needing significant assistance by floor staff with all ADLs, he is compliant with his medications Review of Systems Except as stated in HPI: all other systems reviewed are Neg Objective Alert: Yes (somewhat drowsy) [place]: Person (vaguely) Mood: Calm Affect: Restricted Memory Intact: Comment (very poor) Hallucinations: Other (denies) Delusions: No Delusion Type: Other (difficult to ascertain due to patient's cognitive disabilities) Suicidal: Ideation (difficult to ascertain due to patient's cognitive disabilities) Homicidal: Ideation (difficult to ascertain due to patient's cognitive disabilities) Insight/Judgment Very poor Vitals/IOs Vital Signs Date Time Temp Pulse Resp B/P Pulse Ox O2 Delivery O2 Flow Rate FiO2 04/07/17 06:01 97.7 87 17 161/74 94 04/03/17 16:50 Room Air Intake and Output 04/06/17 04/06/17 04/07/17 08:00 16:00 00:00 Intake Total 120 ml 240 ml 480 ml Balance 120 ml 240 ml 480 ml Assessment & Plan Problem List: (1) Alzheimer's dementia ICD Code: G30.9 (2) Dementia in other diseases classified elsewhere with behavioral disturbance ICD Code: F02.81 Assessment & Plan Estimated LOS: days patient continues diffusely confused disoriented needing significant interventions and assistance by staff, compliant medication Justification for Cont. Inpt. At this time patient would decompensate if placed at a lower level of care Discharge Planning To be determined Problem Qualifiers (1) Alzheimer's dementia: Rd Tanner MD Apr 07, 2017 15:24
[2017-04-07 16:20] VITALS: BP 119/56; PULSE 88; RESP 18; TEMP 97.4
[2017-04-07] MEDS: risperiDONE 0.5 MG TAB PO SCH (22:14)
[2017-04-08 06:00] VITALS: BP 117/57; PULSE 49; RESP 18; TEMP 97.9; O2SAT 97
[2017-04-08] MEDS: MEMANTINE HCL 10 MG TAB PO SCH ×2 (09:00→21:02)
[2017-04-08] MEDS: LORazepam 0.5 MG TAB PO PRN (13:00)
--- NOTE | 2017-04-08 19:44 | HHI.PYPN ---
Subjective Remarks Pt seen and discussed with staff. Pt has been medication compliant. No agitation or behavioral problems. He has been sleeping off and on for most of the day. Objective Alert: Yes (somewhat drowsy) [place]: Person Mood: Calm Affect: Restricted Memory Intact: Comment (very poor) Hallucinations: Other (denies) Delusions: No Delusion Type: Other (difficult to ascertain due to patient's cognitive disabilities) Suicidal: Ideation (difficult to ascertain due to patient's cognitive disabilities) Homicidal: Ideation (difficult to ascertain due to patient's cognitive disabilities) Insight/Judgment poor Vitals/IOs Vital Signs Date Time Temp Pulse Resp B/P Pulse Ox O2 Delivery O2 Flow Rate FiO2 04/08/17 06:00 97.9 49 18 117/57 97 Intake and Output 04/07/17 04/07/17 04/07/17 07:59 15:59 23:59 Intake Total 240 ml 720 ml 360 ml Balance 240 ml 720 ml 360 ml Assessment & Plan Problem List: (1) Alzheimer's dementia ICD Code: G30.9 (2) Dementia in other diseases classified elsewhere with behavioral disturbance ICD Code: F02.81 Assessment & Plan Continue current tx plan. Estimated LOS: days Justification for Cont. Inpt. risk of decompensating Problem Qualifiers (1) Alzheimer's dementia: Minda Mccoy MD Apr 08, 2017 19:43
[2017-04-08] MEDS: traMADol HCL 50 MG TAB PO PRN (21:03)
[2017-04-08] MEDS: risperiDONE 0.5 MG TAB PO SCH (21:03)
[2017-04-09 06:00] VITALS: BP 141/63; PULSE 60; RESP 18; TEMP 98; O2SAT 97
[2017-04-09] MEDS: MEMANTINE HCL 10 MG TAB PO SCH ×2 (08:30→20:37)
--- NOTE | 2017-04-09 16:53 | HHI.PYPN ---
Subjective Remarks Pt seen and discussed with staff. RN had difficulty getting pt to take medications this morning, but otherwise he has not had any behavioral problems on unit today. Cooperative with care. No SI/HI Objective Alert: Yes (somewhat drowsy) [place]: Person Mood: Calm Affect: Restricted Memory Intact: Comment (very poor) Hallucinations: Other (denies) Delusions: No Delusion Type: Other (difficult to ascertain due to patient's cognitive disabilities) Suicidal: Ideation (difficult to ascertain due to patient's cognitive disabilities) Homicidal: Ideation (difficult to ascertain due to patient's cognitive disabilities) Insight/Judgment poor Vitals/IOs Vital Signs Date Time Temp Pulse Resp B/P Pulse Ox O2 Delivery O2 Flow Rate FiO2 04/09/17 06:00 98.0 60 18 141/63 97 Intake and Output 04/08/17 04/08/17 04/09/17 08:00 16:00 00:00 Intake Total 300 ml Balance 300 ml Assessment & Plan Problem List: (1) Alzheimer's dementia ICD Code: G30.9 (2) Dementia in other diseases classified elsewhere with behavioral disturbance ICD Code: F02.81 Assessment & Plan Continue current tx plan. Estimated LOS: days Justification for Cont. Inpt. risk of decompensation Problem Qualifiers (1) Alzheimer's dementia: Minda Mccoy MD Apr 09, 2017 16:53
[2017-04-09 18:50] VITALS: BP 102/56; PULSE 99; RESP 19; TEMP 98.4; O2SAT 98
[2017-04-09] MEDS: risperiDONE 0.5 MG TAB PO SCH (20:37)
[2017-04-10 05:42] VITALS: BP 97/55; PULSE 57; RESP 18; TEMP 98.7
[2017-04-10] MEDS: MEMANTINE HCL 10 MG TAB PO SCH ×2 (08:47→20:22)
[2017-04-10] MEDS: traMADol HCL 50 MG TAB PO PRN (13:32)
[2017-04-10] MEDS: LORazepam 0.5 MG TAB PO PRN (13:32)
--- NOTE | 2017-04-10 15:33 | HHI.HCPN ---
Reason for visit a. To assist with evaluation and management of symptoms including:agitation b. To assist medical decision maker(s) with: better understanding of current medical conditions; weighing benefits/burdens of medical treatment options; making medical treatment decisions. (Mary Torres) Subjective/Interval History Pt stable over the weekend. Staff reports cooperative. Has been getting prn ativan about once per day for mild anxiety. Cooperative when staff assisting with adls. Psych following over weekend, no changes in treatments. d/w primary RN. Pt seen in unit, up in Danita chair w tray in day room. He is sleeping but arouses for my exam. He follows simple commands. Moves all 4 extremities. Verbalizes a few words to my questions, though replies are not related to my questions. Wound to left index finger appears reddened today, some beige exudate visible under a clear dressing. . Family/friend interactions Call to dtr Tessa Erwin, updated on weekend (per notes in EMR), current assessment, treatments in place. Review continued psych monitoring, pt has not had violent or agitated outbursts, has remained cooperative. She wonders if he goes back to the [facility] w no med changes, if he could again have outbursts in a week or so. Review dementia process and that he could have behavioral changes at any time despite medications in place,and will not necessarily be predictable. All questions answered, supportive listening provided. Review code status again with her as I received POA/HCS documents naming her (received last Monday) . She again expresses pt would want DNR and all family is in agreement, as we prev discussed on Monday. Goals remain aggressive short of CPR. . (Mary Torres) Advance Directives Durable Power of Drawing Supervisor: Completed, but not made available (pt may have a POA which may? include [facility], do not have copies of this document) (Mary Torres) Objective Vital Signs Date Time Temp Pulse Resp B/P Pulse Ox O2 Delivery O2 Flow Rate FiO2 04/10/17 05:42 98.7 57 18 97/55 04/09/17 18:50 98.4 99 19 102/56 98 Physical Exam CONSTITUTIONAL/GENERAL: This is an adequately nourished patient, in no apparent distress.Up in danita chair in dayroom , sleeping,arouses to exam. No Apparent distress. TUBES/LINES/DRAINS:PIV upper extremity. SKIN: No jaundice, rashes, or lesions. Cast now off. left index finger with erythema around prior skin cancer removal site, + some beige exudate. Skin temperature warm. NECK: Trachea midline. Supple, nontender. CARDIOVASCULAR: Regular rate and rhythm without murmurs. No JVD. Peripheral pulses symmetric. RESPIRATORY/CHEST: Symmetric, unlabored respirations. On room air. Clear to auscultation. Breath sounds equal bilaterally. GASTROINTESTINAL: Abdomen soft, non-tender, nondistended. No palpable masses- palp somewhat limited due to upright in chair. No guarding. Bowel sounds present. NEUROLOGICAL: Lethargic, arouses to exam. Verbalizes some, though not appropriate answers to my questions. follows simple commands, does not follow more complex commands. Moves all 4 extremities. PSYCHIATRIC: No obvious anxiety/depression- No apparent hallucinations or other psychotic thought process. (Mary Torres) Diagnostic Tests Result Diagram: 04/06/17 0808 Assessment and Plan Disease Oriented Problem List: (1) Alzheimer's dementia (2) Squamous cell carcinoma (3) HTN (hypertension), benign (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 . Also supported by daughter, son, local granddaughter. Grew up in [place], worked in his father's [employer] business. Spiritual:[employer] Legal:pt w dementia, currently under barron act. Per court guardian is , per [place] statutes she would be legal proxy unless documents regarding health care POA are obtained. Ethical issues impacting care: . Important Contacts Yany Layton [phone] NATALIA ERWIN dtr [phone] granddaughter Giulia [phone] / [phone] jorden . Prognosis This patient was admitted as [place] act for behavioral disturbance, aggressive behaviors. He has had a few Barron act episodes for similar behaviors. He has advanced dementia, though does not appear to be end stage at this time. . Code Status: No Code Plan * Legal decision maker: pt w dementia, currently under barron act. was named guardian during [place] act hearings. [place] statutes she would be legal proxy unless documents regarding health care POA are obtained. Conference call with family 04/07/17 Review that was appointed as guardian per [place] act court proceedings however daughter also indicates that she is appointed healthcare POA. Advised that for now they can all participate in decision-making until we obtain appropriate legal documents. Daughter plans to email me copies of POA documents.---->> dtr did provided HCS/POA documents which name her as legal decision maker * Goals: Met with daughter, granddaughter initially via conference call. unable to participate due to illness. Goals are unchanged- aggressive to try to maximize treatment to stabilize his mood and get him discharged when safe. DNR elected today. * CODE STATUS: DNR. SYMPTOMS: --Agitation-patient with advanced dementia, history of violent/aggressive behaviors. In the past responded well to Risperdal, Ativan per psychiatry's notes. Started on Risperdal 0.5 daily at bedtime here. Has 0.5-1 mg Ativan every 6 hours PRN .granddaughter says his confusion/agitation gets worse in evenings, Granddaughter indicates pt prev on Risperdal twice a day, as well a trazodone Q hs. No episodes thus far in patient --Malnutrition + some weight loss, prior admission 2016 notes weight 100 kg, current admission weight 87 kg/ weight loss of 13 kg/28 pounds in about a year, albumin 3.2/3.4. Good appetite , eating most of recent meals. Granddaughter reports appetite fluctuates. -- pain- potential source would be wound from recent bx left hand-- currently denies pain. will cont to evaluate * Palliative care will continue to follow during hospital course as condition evolves, to assist patient/decision-maker with understanding of medical conditions, weighing benefits/burdens of treatment options, for clarification of goals of treatment. Additionally will assist with any symptoms of palliative concern . (Mary Torres) Attestation To help prompt me to consider important information that might be impacting today's encounter and assessment, information from prior notes written by myself or my colleagues may have been "brought forward" into today's note. My signature on this note, however, is an attestation that I personally performed the exam, history, and/or decision-making noted today, and, unless otherwise indicated, the interactions with patient, family, and staff as well as the review of records all occurred today. I also attest that the listed assessment and stated plan reflect my best clinical judgment today based on the combination of historical information, prior notes, and today's exam/ interactions. When time spent is documented, it refers only to time spent today by the signer, or if indicated, combined time spent today by collaborating physician/nurse practitioner. (Mary Torres) Collaborating MD Comments Discussed with PARRISH, agree with assessment and plan (Trevor Landrum MD) Mary Torres Apr 10, 2017 15:33 Trevor Landrum MD Apr 13, 2017 15:08
[2017-04-10 17:57] VITALS: BP 132/61; PULSE 56; RESP 16; TEMP 97.5; O2SAT 98
[2017-04-10] MEDS: risperiDONE 0.5 MG TAB PO SCH (20:22)
[2017-04-11] MEDS: LORazepam 0.5 MG TAB PO PRN ×3 (00:23→21:00)
[2017-04-11 05:33] VITALS: BP 115/62; PULSE 78; RESP 17; TEMP 98.4; O2SAT 99
[2017-04-11] MEDS: MEMANTINE HCL 10 MG TAB PO SCH ×2 (08:27→21:00)
--- NOTE | 2017-04-11 12:32 | HHI.PR ---
Subjective Remarks Patient is awake today in the community room Objective Vital Signs Date Time Temp Pulse Resp B/P Pulse Ox O2 Delivery O2 Flow Rate FiO2 04/11/17 05:33 98.4 78 17 115/62 99 04/10/17 17:57 97.5 56 16 132/61 98 I/O 04/10/17 04/10/17 04/10/17 04/11/17 04/11/17 04/11/17 07:00 15:00 23:00 07:00 15:00 23:00 Intake Total 1440 ml 480 ml Output Total 240 ml Balance 1440 ml -240 ml 480 ml Intake Oral 1440 ml 480 ml Output Urine Total 240 ml # Voids 1 5 2 # Bowel Movements 2 Objective Remarks His left index finger is healing well. No sign of any infection. Skin graft is almost fully healed in. There is no obvious recurrence. There is no evidence of any mass effect or epitrochlear or axillary adenopathy in his left upper extremity. The finger is limber The donor wound from his left upper inner arm is healing very well with no sign of infection. Sutures to remove removed today Assessment and Plan Problem List: (1) Squamous cell skin cancer, finger Status: Acute Plan: The patient was almost lost to follow-up until he was readmitted. He does have extension to one of the margins of his left index finger of the squamous cell carcinoma. This will require definitively reexcision of the margins and possibly another skin graft. I will wait to see what the disposition of the patient is after the family discussion that's tentatively scheduled for later today with the housestaff and then we'll make our plan. Discussed this with the patient's nurse as well Okay to wash and dry hands normally and use hands as tolerated I called the patient's daughter yesterday and left a message Sutures will be removed from the upper inner left arm today The wound is doing well and healing continue just local wound care, soap and water only Ke Bell III, MD Apr 11, 2017 12:32
[2017-04-11] MEDS: traMADol HCL 50 MG TAB PO PRN (13:30)
[2017-04-11 18:36] VITALS: BP 137/66; PULSE 57; RESP 18; TEMP 97.6; O2SAT 100
[2017-04-11] MEDS: risperiDONE 0.5 MG TAB PO SCH (21:00)
[2017-04-12 05:45] VITALS: BP 116/55; PULSE 59; RESP 16; TEMP 97.4
[2017-04-12 06:26] VITALS: BP 116/55; PULSE 59; RESP 16; TEMP 97.4; O2SAT 96
[2017-04-12] MEDS: MEMANTINE HCL 10 MG TAB PO SCH ×2 (09:00→20:43)
[2017-04-12 18:00] VITALS: BP 124/61; PULSE 104; TEMP 97.7; O2SAT 95
[2017-04-12] MEDS: risperiDONE 0.5 MG TAB PO SCH (20:43)
[2017-04-13 06:00] VITALS: BP 132/68; PULSE 76; RESP 18; TEMP 97.7
[2017-04-13] MEDS: MEMANTINE HCL 10 MG TAB PO SCH ×2 (08:16→20:50)
[2017-04-13] MEDS: traMADol HCL 50 MG TAB PO PRN (08:16)
[2017-04-13] MEDS: risperiDONE 0.5 MG TAB PO SCH (20:50)
[2017-04-14 06:03] VITALS: BP 112/57; PULSE 63; RESP 16; TEMP 98; O2SAT 99
[2017-04-14] MEDS: traMADol HCL 50 MG TAB PO PRN (08:55)
[2017-04-14] MEDS: MEMANTINE HCL 10 MG TAB PO SCH ×2 (08:55→20:13)
[2017-04-14 17:28] VITALS: BP 114/55; PULSE 67; RESP 17; TEMP 98.1; O2SAT 98
[2017-04-14] MEDS: risperiDONE 0.5 MG TAB PO SCH (20:13)
[2017-04-15 05:34] VITALS: BP 131/78; PULSE 121; RESP 15; TEMP 98.4; O2SAT 95
[2017-04-15] MEDS: MEMANTINE HCL 10 MG TAB PO SCH ×2 (09:04→20:39)
[2017-04-15] MEDS: LORazepam 0.5 MG TAB PO PRN (12:40)
[2017-04-15 15:00] VITALS: BP 119/56; PULSE 66; RESP 16; TEMP 97; O2SAT 99
[2017-04-15 20:00] VITALS: BP 119/56; PULSE 66; RESP 16; TEMP 97; O2SAT 97
[2017-04-15] MEDS: risperiDONE 0.5 MG TAB PO SCH (20:39)
[2017-04-15] MEDS: LORazepam 2 MG/ML VIAL IM PRN (22:46)
[2017-04-16 06:03] VITALS: BP 126/68; PULSE 69; RESP 16; TEMP 98; O2SAT 96
[2017-04-16] MEDS: MEMANTINE HCL 10 MG TAB PO SCH ×2 (09:00→20:13)
[2017-04-16] MEDS: LORazepam 2 MG/ML VIAL IM PRN (09:35)
[2017-04-16 15:00] VITALS: BP 108/67; O2SAT 98
[2017-04-16 17:55] VITALS: BP 127/54; PULSE 81; RESP 17; TEMP 98.2; O2SAT 98
[2017-04-16 18:36] VITALS: BP 150/74; PULSE 88
[2017-04-16] MEDS: risperiDONE 0.5 MG TAB PO SCH (20:14)
[2017-04-17] MEDS: LORazepam 2 MG/ML VIAL IM PRN (00:07)
[2017-04-17 05:39] VITALS: BP 133/59; PULSE 77; RESP 16; TEMP 99.4; O2SAT 95
[2017-04-17 05:41] VITALS: BP 101/55; PULSE 66; RESP 17; TEMP 97.4; O2SAT 93
[2017-04-17] MEDS: MEMANTINE HCL 10 MG TAB PO SCH (09:24)
--- NOTE | 2017-04-17 12:20 | HHI.PR ---
Subjective Remarks Patient is awake today in the community room staff states that he is due for discharge today Objective Vital Signs Date Time Temp Pulse Resp B/P (MAP) Pulse Ox O2 Delivery O2 Flow Rate FiO2 04/17/17 05:41 97.4 66 17 101/55 (70) 93 04/17/17 05:39 99.4 77 16 133/59 (83) 95 04/16/17 18:36 88 150/74 (99) 04/16/17 17:55 98.2 81 17 127/54 (78) 98 04/16/17 15:00 108/67 (81) 98 I/O 04/16/17 04/16/17 04/16/17 04/17/17 04/17/17 04/17/17 07:00 15:00 23:00 07:00 15:00 23:00 Intake Total 0 ml 480 ml Balance 0 ml 480 ml Intake Oral 0 ml 480 ml # Voids 2 1 # Bowel Movements 1 Objective Remarks His left index finger is healing well. No sign of any infection. Skin graft is almost fully healed in. There is no obvious recurrence. There is no evidence of any mass effect or epitrochlear or axillary adenopathy in his left upper extremity. The finger is limber The donor wound from his left upper inner arm is healing very well with no sign of infection. Assessment and Plan Problem List: (1) Squamous cell skin cancer, finger ICD Codes: C44.621 - Squamous cell carcinoma of skin of unspecified upper limb , including shoulder Status: Acute Plan: The patient was almost lost to follow-up until he was readmitted. He does have extension to one of the margins of his left index finger of the squamous cell carcinoma. This will require definitively reexcision of the margins and possibly another skin graft. Okay to wash and dry hands normally and use hands as tolerated I called the patient's daughter several times and left messages and we have been playing phone tag f/u with me in office; i discussed this today with his nurse T who is going to relay the information to his family Ke Bell III, MD Apr 17, 2017 12:20
[2017-04-17] MEDS ORDERED: ULTR50TA5 PO (13:47)
[2017-04-17] MEDS ORDERED: NAME10TA PO (13:47)
[2017-04-17] MEDS ORDERED: AMLO10 PO (13:47)
[2017-04-17] MEDS ORDERED: RISP0.5T20 PO (13:47)
[2017-04-17] MEDS ORDERED: LORA-392 PO (13:47)
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
== END 2017-04-17 14:30 | DRG 57 ==
LOC: NEPD 22:30 → NEDA 04-03 17:46 → H250 04-03 18:33
PROVIDERS: ADMIT Psychiatry & Neurology Psychiatry; ATTEND Psychiatry & Neurology Psychiatry
DX: G30.9 Alzheimer's disease, unspecified (principal); L89.322 Pressure ulcer of left buttock, stage 2; E46 Unspecified protein-calorie malnutrition; F02.81 Dementia in other diseases classified elsewhere, unspecified severity, with behavioral disturbance; J44.9 Chronic obstructive pulmonary disease, unspecified; N18.3 Chronic kidney disease, stage 3 (moderate); C44.629 Squamous cell carcinoma of skin of left upper limb, including shoulder; I12.9 Hypertensive chronic kidney disease with stage 1 through stage 4 chronic kidney disease, or unspecified chronic kidney disease; N40.0 Benign prostatic hyperplasia without lower urinary tract symptoms; F41.9 Anxiety disorder, unspecified; R32 Unspecified urinary incontinence; Z66 Do not resuscitate; R15.9 Full incontinence of feces
CPT/HCPCS: 80053; 80061; 80307; 81001; 82306; 82607; 83036; 84443; 85025; 93005; 96372; J1200; J2060

== ENCOUNTER 2017-04-21 23:15 | Inpatient (IN) | payer MEDICARE ==
[~2017-04-21] VITALS: Ht 182.9 cm; Wt 72.0 kg
[~2017-04-21 23:15] MED LIST changes: +AMLO10 PO; -AMLO5 PO; -ARIC5TAB2 PO; +LORA-392 PO; +LORA2INJ2 IM; +MILKSUS PO; -RISP1 PO; +RULOSUS PO; +TYLE325T PO; +ULTR50TA5 PO
[2017-04-21 23:20] VITALS: BP 139/85; PULSE 86; RESP 14; O2SAT 96
--- NOTE | 2017-04-21 23:32 | PD ---
HPI Chief Complaint: right hip injury Time Seen by Provider: 23:19 Travel History International Travel<30 days: No Contact w/Intl Traveler<30days: No Traveled to known affect area: No History of Present Illness HPI 81-year-old male was brought in by EMS from local custodial rehabilitation facility. Patient was reported to have a fall 3 days ago. Patient has persistent right hip pain an x-ray done today at the facility shows fracture right femur. Patient was transported by EMS to the ED for evaluation. Patient has history of advanced dementia, unable to provide any information. Patient was reported by custodial staff that he was ambulatory prior to this accident. 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 Patient also has history of hypertension, chronic kidney disease, BPH, COPD. PFSH Past Medical History Alzheimer's Disease: Yes Arthritis: No Autoimmune Disease: No Anxiety: Yes Depression: No Cancer: No (per previous report) Cardiovascular Problems: No (per previous report) Cerebrovascular Accident: No Diabetes: No (per previous report) Endocrine: No Genitourinary: Yes Headaches: No (per previous report) Immune Disorder: No Musculoskeletal: Yes Neurologic: Yes (DX. WITH ALZHEIMER'S DEMENTIA OVER 2 YRS. AGO) Psychiatric: Yes (pt was diagnosised with Dementia with Behavioral Disturbance) Reproductive: No Respiratory: No Migraines: No Seizures: No (per previous report) Past Surgical History Pacemaker: Yes Other Surgery: Yes Social History Alcohol Use: No Tobacco Use: No Substance Use: No Allergies-Medications (Allergen,Severity, Reaction): Coded Allergies: codeine (Unverified Allergy, Unknown, NAUSEA/VOMITTING, 04/11/17) penicillin G (Unverified Allergy, Unknown, 04/11/17) Reported Meds & Prescriptions Reported Meds & Active Scripts Active Namenda (Memantine) 10 Mg Tab 10 Mg PO BID Ativan (Lorazepam) 0.5 Mg Tab 0.5 Mg PO Q12H PRN Risperdal (Risperidone) 0.5 Mg Tab 0.5 Mg PO HS Ultram (Tramadol HCl) 50 Mg Tab 50 Mg PO DAILY PRN Norvasc (Amlodipine Besylate) 10 Mg Tab 10 Mg PO DAILY Reported Rulox Liq (Ynjhnxvo-Ykybsjruq-Fulannbouru Liq) 200-200-20 Mg/5 Ml Susp 30 Ml PO Q6HR Take between meals or as directed. Shake well. Maximum 120 ml/24 hrs. Milk of Magnesia Liq (Magnesium Hydroxide) 400 Mg/5 Ml Susp 30 Ml PO DAILY PRN Ativan (Lorazepam) 0.5 Mg Tab 0.5 Mg PO BID PRN Lorazepam Inj (Lorazepam) 2 Mg/Ml Inj 0.25 Mg IM Q12HR PRN Tylenol (Acetaminophen) 325 Mg Tab 650 Mg PO Q4H PRN Tramadol (Tramadol HCl) 50 Mg Tab 50 Mg PO Q4H PRN Review of Systems General / Constitutional: No: Fever Eyes: No: Visual changes HENT: No: Headaches Cardiovascular: No: Chest Pain or Discomfort Respiratory: No: Shortness of Breath Gastrointestinal: No: Abdominal Pain Genitourinary: No: Dysuria Musculoskeletal: No: Pain Skin: No Rash Neurologic: No: Weakness Psychiatric: No: Depression Endocrine: No: Polydipsia Hematologic/Lymphatic: No: Easy Bruising Physical Exam Narrative GENERAL: Well-nourished, well-developed patient. SKIN: Focused skin assessment warm/dry. HEAD: Normocephalic. EYES: No scleral icterus. No injection or drainage. NECK: Supple, trachea midline. No JVD or lymphadenopathy. CARDIOVASCULAR: Regular rate and rhythm without murmurs, gallops, or rubs. RESPIRATORY: Breath sounds equal bilaterally. No accessory muscle use. GASTROINTESTINAL: Abdomen soft, non-tender, nondistended. MUSCULOSKELETAL: No cyanosis, or edema. BACK: Nontender without obvious deformity. No CVA tenderness. Patient has external rotated right hip joint. Sensorimotor function distally intact. Neurologic exam: Patient has advanced Alzheimer. No obvious focal neurological deficit. Data Data Last Documented VS Vital Signs Date Time Temp Pulse Resp B/P (MAP) Pulse Ox O2 Delivery O2 Flow Rate FiO2 04/22/17 03:30 66 16 121/57 (78) 97 Room Air Orders Orders Electrocardiogram (04/21/17 23:20) Complete Blood Count With Diff (04/21/17 23:20) Comprehensive Metabolic Panel (04/21/17 23:20) Prothrombin Time / Inr (Pt) (04/21/17 23:20) Act Partial Throm Time (Ptt) (04/21/17 23:20) Urinalysis - C+S If Indicated (04/21/17 23:20) Chest, Single Ap (04/21/17 23:20) Iv Access Insert/Monitor (04/21/17 23:20) Ecg Monitoring (04/21/17 23:20) Oximetry (04/21/17 23:20) Type And Screen (04/21/17 23:20) Hip, Uni(Ap&Lat) W Ap Pelvis (04/21/17 23:20) Sodium Chlor 0.9% 1000 Ml Inj (Ns 1000 M (04/22/17 05:00) Labs Laboratory Tests Test 04/22/17 01:45 White Blood Count 22.1 TH/MM3 Red Blood Count 5.06 MIL/MM3 Hemoglobin 15.6 GM/DL Hematocrit 47.5 % Mean Corpuscular Volume 93.9 FL Mean Corpuscular Hemoglobin 30.8 PG Mean Corpuscular Hemoglobin Concent 32.8 % Red Cell Distribution Width 13.6 % Platelet Count 187 TH/MM3 Mean Platelet Volume 8.1 FL Neutrophils (%) (Auto) 86.5 % Lymphocytes (%) (Auto) 6.8 % Monocytes (%) (Auto) 6.5 % Eosinophils (%) (Auto) 0.1 % Basophils (%) (Auto) 0.1 % Neutrophils # (Auto) 19.1 TH/MM3 Lymphocytes # (Auto) 1.5 TH/MM3 Monocytes # (Auto) 1.4 TH/MM3 Eosinophils # (Auto) 0.0 TH/MM3 Basophils # (Auto) 0.0 TH/MM3 CBC Comment DIFF FINAL Differential Comment Prothrombin Time 12.1 SEC Prothromb Time International Ratio 1.1 RATIO Activated Partial Thromboplast Time 25.2 SEC Blood Urea Nitrogen 41 MG/DL Creatinine 1.40 MG/DL Random Glucose 90 MG/DL Total Protein 6.8 GM/DL Albumin 2.7 GM/DL Calcium Level 8.6 MG/DL Alkaline Phosphatase 83 U/L Aspartate Amino Transf (AST/SGOT) 31 U/L Alanine Aminotransferase (ALT/SGPT) 24 U/L Total Bilirubin 1.1 MG/DL Sodium Level 151 MEQ/L Potassium Level 4.2 MEQ/L Chloride Level 114 MEQ/L Carbon Dioxide Level 27.5 MEQ/L Anion Gap 10 MEQ/L Estimat Glomerular Filtration Rate 49 ML/MIN MDM Medical Decision Making Medical Screen Exam Complete: Yes Emergency Medical Condition: Yes Interpretation(s) Last Impressions Hip and Pelvis X-Ray 04/21/172319 Signed Impressions: Service Date/Time: Friday, April 21, 2017 23:37 - CONCLUSION: Impacted femoral neck fracture on the right. Tiago Harris MD Chest X-Ray 04/21/172319 Signed Impressions: Service Date/Time: Friday, April 21, 2017 23:37 - CONCLUSION: Normal examination except for blunting of the left lateral costophrenic angle could be hiding a small pleural effusion. Tiago Harris MD 4:49 AM. CBC WBC 22.1. 86 neutrophil. Sodium 151. BUN 41. Creatinine 1.40. Differential Diagnosis Differential diagnosis including fracture, dislocation. Narrative Course 81-year-old male with right hip injury. Status post fall. Diagnosis Primary Impression: Fracture of right femur Qualified Codes: S72.001A - Fracture of unspecified part of neck of right femur, initial encounter for closed fracture Jimbo Lam MD Apr 21, 2017 23:32
--- NOTE | 2017-04-22 00:02 | RADRPT ---
EXAM DATE/TIME: 04/21/2017 23:37 [facility] COMPARISON: No previous studies available for comparison. INDICATIONS : Fell three days ago. Evaluate for fracture. MEDICAL HISTORY : None. SURGICAL HISTORY : None. ENCOUNTER: Initial ACUITY: 3 days PAIN SCORE: Non-responsive. LOCATION: Bilateral chest FINDINGS: A single view of the chest demonstrates the lungs to be symmetrically aerated without evidence of mas s, infiltrate or effusion. The cardiomediastinal contours are unremarkable. Osseous structures are intact. CONCLUSION: Normal examination except for blunting of the left lateral costophrenic angle could be hiding a small pleural effusion. Tiago Harris MD on April 22, 2017 at 0:00 Board Certified Radiologist. This report was verified electronically.
--- NOTE | 2017-04-22 00:08 | RADRPT ---
EXAM DATE/TIME: 04/21/2017 23:37 [facility] COMPARISON: No previous studies available for comparison. INDICATIONS : Fell three days ago, evaluate for fracture. MEDICAL HISTORY : None. SURGICAL HISTORY : None. ENCOUNTER: Initial ACUITY: 3 days PAIN SCORE: Non-responsive. LOCATION: Right hip FINDINGS: Examination of the right hip was performed with AP Pelvis. There is an impacted fracture of the mid f emoral neck with foreshortening . The hip joint is of normal width without significant sclerosis or bony hypertrophy. The acetabulum is grossly intact. CONCLUSION: Impacted femoral neck fracture on the right. Tiago Harris MD on April 22, 2017 at 0:06 Board Certified Radiologist. This report was verified electronically.
[2017-04-22 02:09] LABS: AUTOMATED NEUTROPHIL # 19.1 TH/MM3 (1.8-7.7); BASOPHIL % 0.1 % (0.0-2.0); EOSINOPHIL % 0.1 % (0.0-4.0); HEMATOCRIT 47.5 % (39.0-51.0); HEMO FLAGS DIFF FINAL; LYMPH % 6.8 % (9.0-44.0); LYMPHOCYTE # 1.5 TH/MM3 (1.0-4.8); MEAN CELL VOLUME 93.9 FL (80.0-100.0); MEAN CORPUSCULAR HEMOGLOBIN 30.8 PG (27.0-34.0); MEAN CORPUSCULAR HGB CONC 32.8 % (32.0-36.0); MONO % 6.5 % (0.0-8.0); NEUT % 86.5 % (16.0-70.0); PLATELET COUNT 187 TH/MM3 (150-450); RED BLOOD COUNT 5.06 MIL/MM3 (4.50-5.90); RED CELL DISTRIBUTION WIDTH 13.6 % (11.6-17.2); WHITE BLOOD COUNT 22.1 TH/MM3 (4.0-11.0)
[2017-04-22 02:13] LABS: APTT (PATIENT) 25.2 SEC (24.3-30.1); INTERNATIONAL NORMALIZED RATIO 1.1 RATIO; PROTHROMBIN TIME - PATIENT 12.1 SEC (9.8-11.6)
[2017-04-22 02:25] LABS: ALKALINE PHOSPHATASE 83 U/L (45-117); TOTAL BILIRUBIN ADULT 1.1 MG/DL (0.2-1.0)
[2017-04-22 02:31] LABS: ALT (GPT) 24 U/L (12-78); ANION GAP 10 MEQ/L (5-15); AST (GOT) 31 U/L (15-37); BICARBONATE 27.5 MEQ/L (21.0-32.0); BLOOD UREA NITROGEN 41 MG/DL (7-18); CHLORIDE 114 MEQ/L (98-107); GLOMERULAR FILTRATION RATE 49 ML/MIN (>89); SODIUM (NA) 151 MEQ/L (136-145)
[2017-04-22 02:32] LABS: POTASSIUM 4.2 MEQ/L (3.5-5.1)
[2017-04-22 03:30] VITALS: BP 121/57; PULSE 66; RESP 16; O2SAT 97
[2017-04-22] MEDS ORDERED: SODIUM CHLOR 0.9% 1000 ML INJ 1,000 ML IV SCH (05:00)
[2017-04-22] MEDS ORDERED: VANCOMYCIN INJ 1,000 MG in SODIUM CHLOR 0.9% 250 ML INJ 250 ML IV ONE (07:00)
[2017-04-22] MEDS ORDERED: CLINDAMYCIN PHOS 600 MG/4 ML VIAL IM ONE (07:00)
--- NOTE | 2017-04-22 07:19 | PD.CONS ---
cc: Keaton Iniguez MD right femoral neck fracture (Laura Medellin) HPI Service Orthopedic Surgeons Consult Requested By ER Staff Reason for Consult Right femoral neck fracture Primary Care Physician Juanito Alvarez M.D. Admission Diagnosis fracture right femur Diagnoses: (1) Fall Diagnosis: Principal (2) Closed displaced fracture of right femoral neck Diagnosis: Principal (3) Alzheimer's dementia (4) COPD (chronic obstructive pulmonary disease) (5) CKD (chronic kidney disease), stage III Chief Complaint: fall, right hip fracture (Laura Medellin) History of Present Illness 81-year-old male was brought in by EMS from local [facility]. Patient was reported to have a fall 3 days ago. Patient has persistent right hip pain an x-ray done today at the facility shows fracture right femur. Patient was transported by EMS to the ED for evaluation. Patient has history of advanced dementia, unable to provide any information. Patient was reported by [facility] staff that he was ambulatory prior to this accident. 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 Patient also has history of hypertension, chronic kidney disease, BPH, COPD. I spoke with the via the telephone the this morning. She states that he "sometimes walked". She also states that he has had a difficult time staying in the wheelchair at the assisted-living facility. She states that he kept getting up and down and they had to restrain him. states he had no issues with his right hip previous to this injury. Patient is unable to give any history is he is AO 0 (Laura Medellin) Past Family Social History Past Medical History History PFSH Past Medical History Alzheimer's Disease: Yes Arthritis: No Autoimmune Disease: No Anxiety: Yes Depression: No Cancer: No (per previous report) Cardiovascular Problems: No (per previous report) Cerebrovascular Accident: No Diabetes: No (per previous report) Endocrine: No Genitourinary: Yes Headaches: No (per previous report) Immune Disorder: No Musculoskeletal: Yes Neurologic: Yes (DX. WITH ALZHEIMER'S DEMENTIA OVER 2 YRS. AGO) Psychiatric: Yes (pt was diagnosised with Dementia with Behavioral Disturbance) Reproductive: No Respiratory: No Migraines: No Seizures: No (per previous report) Past Surgical History Past Surgical History Pacemaker: Yes Other Surgery: Yes (Laura Medellin) Allergies: Coded Allergies: codeine (Unverified Allergy, Unknown, NAUSEA/VOMITTING, 04/11/17) penicillin G (Unverified Allergy, Unknown, 04/11/17) Active Ordered Medications Current Medications Medications (Trade) Dose Ordered Sig/Bossman Route Start Time Stop Time Status Last Admin Sodium Chloride 1,000 ml @ 100 mls/hr Q10H IV 04/22/17 05:00 04/22/17 05:30 Reported Meds & Active Scripts Active Namenda (Memantine) 10 Mg Tab 10 Mg PO BID Ativan (Lorazepam) 0.5 Mg Tab 0.5 Mg PO Q12H PRN Risperdal (Risperidone) 0.5 Mg Tab 0.5 Mg PO HS Ultram (Tramadol HCl) 50 Mg Tab 50 Mg PO DAILY PRN Norvasc (Amlodipine Besylate) 10 Mg Tab 10 Mg PO DAILY Reported Rulox Liq (Wwategyn-Iacyfxdyl-Nioiitkqfno Liq) 200-200-20 Mg/5 Ml Susp 30 Ml PO Q6HR Take between meals or as directed. Shake well. Maximum 120 ml/24 hrs. Milk of Magnesia Liq (Magnesium Hydroxide) 400 Mg/5 Ml Susp 30 Ml PO DAILY PRN Ativan (Lorazepam) 0.5 Mg Tab 0.5 Mg PO BID PRN Lorazepam Inj (Lorazepam) 2 Mg/Ml Inj 0.25 Mg IM Q12HR PRN Tylenol (Acetaminophen) 325 Mg Tab 650 Mg PO Q4H PRN Tramadol (Tramadol HCl) 50 Mg Tab 50 Mg PO Q4H PRN Family History noncontributory Social History Social History Alcohol Use: No Tobacco Use: No Substance Use: No (Laura Medellin) Physical Exam Vital Signs Vital Signs Date Time Temp Pulse Resp B/P (MAP) Pulse Ox O2 Delivery O2 Flow Rate FiO2 04/22/17 03:30 66 16 121/57 (78) 97 Room Air 04/21/17 23:20 86 14 139/85 (103) 96 Physical Exam RLE: Right extremity in external rotation, any attempts at range of motion or palpation elicits pain over right hip region, calf is soft, good cap refill, palpable pulses, and exam unable to obtain No other signs of musculoskeletal injury Laboratory Laboratory Tests Test 04/22/17 01:45 White Blood Count 22.1 Red Blood Count 5.06 Hemoglobin 15.6 Hematocrit 47.5 Mean Corpuscular Volume 93.9 Mean Corpuscular Hemoglobin 30.8 Mean Corpuscular Hemoglobin Concent 32.8 Red Cell Distribution Width 13.6 Platelet Count 187 Mean Platelet Volume 8.1 Neutrophils (%) (Auto) 86.5 Lymphocytes (%) (Auto) 6.8 Monocytes (%) (Auto) 6.5 Eosinophils (%) (Auto) 0.1 Basophils (%) (Auto) 0.1 Neutrophils # (Auto) 19.1 Lymphocytes # (Auto) 1.5 Monocytes # (Auto) 1.4 Eosinophils # (Auto) 0.0 Basophils # (Auto) 0.0 CBC Comment DIFF FINAL Differential Comment Prothrombin Time 12.1 Prothromb Time International Ratio 1.1 Activated Partial Thromboplast Time 25.2 Blood Urea Nitrogen 41 Creatinine 1.40 Random Glucose 90 Total Protein 6.8 Albumin 2.7 Calcium Level 8.6 Alkaline Phosphatase 83 Aspartate Amino Transf (AST/SGOT) 31 Alanine Aminotransferase (ALT/SGPT) 24 Total Bilirubin 1.1 Sodium Level 151 Potassium Level 4.2 Chloride Level 114 Carbon Dioxide Level 27.5 Anion Gap 10 Estimat Glomerular Filtration Rate 49 (Laura Medellin) Result Diagram: 04/22/1714404/22/17144 Imaging Last Impressions Hip and Pelvis X-Ray 04/21/172319 Signed Impressions: Service Date/Time: Friday, April 21, 2017 23:37 - CONCLUSION: Impacted femoral neck fracture on the right. Tiago Harris MD Chest X-Ray 04/21/172319 Signed Impressions: Service Date/Time: Friday, April 21, 2017 23:37 - CONCLUSION: Normal examination except for blunting of the left lateral costophrenic angle could be hiding a small pleural effusion. Tiago Harris MD Course see medical record (Laura Medellin) Assessment & Plan Problem List: (1) Fall ICD Codes: W19.XXXA - Unspecified fall, initial encounter Status: Acute Qualifiers: Qualified Codes: W19.XXXA - Unspecified fall, initial encounter (2) Closed displaced fracture of right femoral neck ICD Codes: S72.001A - Fracture of unspecified part of neck of right femur, initial encounter for closed fracture Status: Acute (3) Alzheimer's dementia ICD Codes: G30.9 - Alzheimer's disease, unspecified Status: Chronic (4) COPD (chronic obstructive pulmonary disease) ICD Codes: J44.9 - Chronic obstructive pulmonary disease, unspecified Status: Chronic (5) CKD (chronic kidney disease), stage III ICD Codes: N18.3 - Chronic kidney disease, stage 3 (moderate) Status: Chronic Assessment and Plan The findings were discussed with the patient and his Yany. Recommendations are given for surgical management, right hip hemiarthroplasty, to allow for mobilization and pain control. The nature of the planned surgical procedure, the risks, the benefits as well as postoperative expectations have been discussed with the via phone in detail. I personally spoke with the , over the phone and she gave consent for surgical treatment to me as well as the nurse. In addition, alternatives of the treatment and risks were discussed. The acknowledges full understanding and consents to it. Patient will most likely need medical clearance. Patient has been marked (Laura Medellin) Assessment and Plan The exam, history, and the medical decision-making described in the above note were completed with the assistance of the mid-level provider. I reviewed and agree with the findings presented. I attest that I had a [id number] encounter with the patient on the same day, and personally performed and documented my assessment and findings in the medical record. (Keaton Iniguez MD) Laura Medellin Apr 22, 2017 07:19 Keaton Iniguez MD Apr 22, 2017 08:04
[2017-04-22 09:45] VITALS: BP 136/84; PULSE 82; RESP 18; O2SAT 95
--- NOTE | 2017-04-22 11:38 | HHI.HP ---
HPI Service [facility] Hospitalists Primary Care Physician Juanito Alvarez M.D. Admission Diagnosis fracture right femur Chief Complaint: fall/hip pain Travel History International Travel<30 Days: No Contact w/Intl Traveler <30 Da: No Traveled to Known Affected Are: No History of Present Illness Mr. Layton is an 81 y/o male with dementia, HTN, and CKD who is an extremely poor historian. He was recently admitted to [facility] psychiatry dept x 2 for dementia /agitation. During that time he was seen by [facility] hospitalist team for a decubitus ulcer on his buttock and a nodule on his left hand. He was seen by wound care for the decubitus ulcer. During admission the left hand finger nodule which was resected by Dr. Bell. Pathology showed squamous cell cancer. he was being followed by the palliative care team as well for advanced dementia and ftt. 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 Bell Colonoscopy Laparoscopic Appendectomy Rectal Surgery/Polypectomy Skin Tag Removal Amputation Toe At IP Joint Thoracentesis (Therapeutic) Reported Medications Reported Meds & Active Scripts Active Namenda (Memantine) 10 Mg Tab 10 Mg PO BID Ativan (Lorazepam) 0.5 Mg Tab 0.5 Mg PO Q12H PRN Risperdal (Risperidone) 0.5 Mg Tab 0.5 Mg PO HS Ultram (Tramadol HCl) 50 Mg Tab 50 Mg PO DAILY PRN Norvasc (Amlodipine Besylate) 10 Mg Tab 10 Mg PO DAILY Reported Rulox Liq (A[place]vxuak-Gxavwfkpf-Tjdasiyftil Liq) 200-200-20 Mg/5 Ml Susp 30 Ml PO Q6HR Take between meals or as directed. Shake well. Maximum 120 ml/24 hrs. Milk of Magnesia Liq (Magnesium Hydroxide) 400 Mg/5 Ml Susp 30 Ml PO DAILY PRN Ativan (Lorazepam) 0.5 Mg Tab 0.5 Mg PO BID PRN Lorazepam Inj (Lorazepam) 2 Mg/Ml Inj 0.25 Mg IM Q12HR PRN Tylenol (Acetaminophen) 325 Mg Tab 650 Mg PO Q4H PRN Tramadol (Tramadol HCl) 50 Mg Tab 50 Mg PO Q4H PRN Allergies: Coded Allergies: penicillin G (Unverified Allergy, Unknown, 04/11/17) codeine (Unverified Adverse Reaction, Unknown, NAUSEA/VOMITTING, 04/22/17) Family History nc Social History no etoh/tob Physical Exam Vital Signs dementia nad lying on the bed heart reg lung diminished entry marlene abd s/nt ext right leg forehortened/external rotation. good distal pulse. Vital Signs Date Time Temp Pulse Resp B/P (MAP) Pulse Ox O2 Delivery O2 Flow Rate FiO2 04/22/17 09:45 82 18 136/84 (101) 95 Room Air 04/22/17 03:30 66 16 121/57 (78) 97 Room Air 04/21/17 23:20 86 14 139/85 (103) 96 Physical Exam GENERAL: This is a well-nourished, well-developed patient, in no apparent distress. SKIN: No rashes, ecchymoses or lesions. Cool and dry. HEAD: Atraumatic. Normocephalic. No temporal or scalp tenderness. EYES: Pupils equal round and reactive. Extraocular motions intact. No scleral icterus. No injection or drainage. ENT: Nose without bleeding, purulent drainage or septal hematoma. Throat without erythema, tonsillar hypertrophy or exudate. Uvula midline. Airway patent. NECK: Trachea midline. No JVD or lymphadenopathy. Supple, nontender, no meningeal signs. CARDIOVASCULAR: Regular rate and rhythm without murmurs, gallops, or rubs. RESPIRATORY: Clear to auscultation. Breath sounds equal bilaterally. No wheezes , rales, or rhonchi. GASTROINTESTINAL: Abdomen soft, non-tender, nondistended. No hepato-splenomegaly , or palpable masses. No guarding. MUSCULOSKELETAL: Extremities without clubbing, cyanosis, or edema. No joint tenderness, effusion, or edema noted. No calf tenderness. Negative Homans sign bilaterally. NEUROLOGICAL: Awake and alert. Cranial nerves II through XII intact. Motor and sensory grossly within normal limits. Five out of 5 muscle strength in all muscle groups. Normal speech. Laboratory Laboratory Tests Test 04/22/17 01:45 04/22/17 10:30 White Blood Count 22.1 Red Blood Count 5.06 Hemoglobin 15.6 Hematocrit 47.5 Mean Corpuscular Volume 93.9 Mean Corpuscular Hemoglobin 30.8 Mean Corpuscular Hemoglobin Concent 32.8 Red Cell Distribution Width 13.6 Platelet Count 187 Mean Platelet Volume 8.1 Neutrophils (%) (Auto) 86.5 Lymphocytes (%) (Auto) 6.8 Monocytes (%) (Auto) 6.5 Eosinophils (%) (Auto) 0.1 Basophils (%) (Auto) 0.1 Neutrophils # (Auto) 19.1 Lymphocytes # (Auto) 1.5 Monocytes # (Auto) 1.4 Eosinophils # (Auto) 0.0 Basophils # (Auto) 0.0 CBC Comment DIFF FINAL Differential Comment Prothrombin Time 12.1 Prothromb Time International Ratio 1.1 Activated Partial Thromboplast Time 25.2 Blood Urea Nitrogen 41 Creatinine 1.40 Random Glucose 90 Total Protein 6.8 Albumin 2.7 Calcium Level 8.6 Alkaline Phosphatase 83 Aspartate Amino Transf (AST/SGOT) 31 Alanine Aminotransferase (ALT/SGPT) 24 Total Bilirubin 1.1 Sodium Level 151 Potassium Level 4.2 Chloride Level 114 Carbon Dioxide Level 27.5 Anion Gap 10 Estimat Glomerular Filtration Rate 49 Result Diagram: 04/22/1714404/22/17144 Caprini VTE Risk Assessment Caprini VTE Risk Assessment: Mod/High Risk (score >= 2) Caprini Risk Assessment Model Point Value = 1 Point Value = 2 Point Value = 3 Point Value = 5 Age 41-60 Minor surgery BMI > 25 kg/m2 Swollen legs Varicose veins or History of unexplained or recurrent spontaneous Oral contraceptives or hormone replacement Sepsis (< 1 month) Serious lung disease, including pneumonia (< 1 month) Abnormal pulmonary function Acute myocardial infarction Congestive heart failure (< 1 month) History of inflammatory bowel disease Medical patient at bed rest Age 61-74 Arthroscopic surgery Major open surgery (> 45 min) Laparoscopic surgery (> 45 min) Malignancy Confined to bed (> 72 hours) Immobilizing plaster cast Central venous access Age >= 75 History of VTE Family history of VTE Factor V Leiden Prothrombin [id number] Lupus anticoagulant Anticardiolipin antibodies Elevated serum homocysteine Heparin-induced thrombocytopenia Other congenital or acquired thrombophilia Stroke (< 1 month) Elective arthroplasty Hip, pelvis, or leg fracture Acute spinal cord injury (< 1 month) Prophylaxis Regimen Total Risk Factor Score Risk Level Prophylaxis Regimen 0-1 Low Early ambulation 2 Moderate Order ONE of the following: *Sequential Compression Device (SCD) *Heparin 5000 units SQ BID 3-4 Higher Order ONE of the following medications: *Heparin 5000 units SQ TID *Enoxaparin/Lovenox 40 mg SQ daily (WT < 150 kg, CrCl > 30 mL/min) *Enoxaparin/Lovenox 30 mg SQ daily (WT < 150 kg, CrCl > 10-29 mL/min) *Enoxaparin/Lovenox 30 mg SQ BID (WT < 150 kg, CrCl > 30 mL/min) AND/OR *Sequential Compression Device (SCD) 5 or more Highest Order ONE of the following medications: *Heparin 5000 units SQ TID (Preferred with Epidurals) *Enoxaparin/Lovenox 40 mg SQ daily (WT < 150 kg, CrCl > 30 mL/min) *Enoxaparin/Lovenox 30 mg SQ daily (WT < 150 kg, CrCl > 10-29 mL/min) *Enoxaparin/Lovenox 30 mg SQ BID (WT < 150 kg, CrCl > 30 mL/min) AND *Sequential Compression Device (SCD) Assessment and Plan Problem List: (1) Closed displaced fracture of right femoral neck ICD Codes: S72.001A - Fracture of unspecified part of neck of right femur, initial encounter for closed fracture Status: Acute Plan: Pt is 81 yo man with advanced dementa/behavioral disturbances. recently admitted x 2 t psychiatry dept for agitation and also seen for SCC of finger s/p resection, and stage 2 sacral decub. Pt was discharged to a facility and the brought back after a fall and found to have a right femur neck fx/impacted Also noted to have mild ruben/dehydration/hypernatremia and uti abx for uti. f/u cx ivf with 1/2NS and recheck bmp in AM cont home bp and psychiatric medications prn pain control dvt prophyaxis IS PT after surgery ortho already planning to take him for right hemiarthroplasty. Pt agreed. No absolute contraindication to surgery but will be high risk and also his ability to rehab will be difficult. He did recently have anesthesia for finger surgery. repeat labs in AM. (2) UTI (urinary tract infection) ICD Codes: N39.0 - Urinary tract infection, site not specified Status: Acute Plan: see above (3) RUBEN (acute kidney injury) ICD Codes: N17.9 - Acute kidney failure, unspecified Status: Acute Plan: see above (4) Hypernatremia ICD Codes: E87.0 - Hyperosmolality and hypernatremia Status: Acute Plan: above (5) Dehydration ICD Codes: E86.0 - Dehydration Status: Acute Plan: above (6) Squamous cell skin cancer, finger ICD Codes: C44.621 - Squamous cell carcinoma of skin of unspecified upper limb , including shoulder Status: Resolved (7) HTN (hypertension), benign ICD Codes: I10 - Essential (primary) hypertension Status: Chronic (8) CKD (chronic kidney disease), stage III ICD Codes: N18.3 - Chronic kidney disease, stage 3 (moderate) Status: Chronic (9) COPD (chronic obstructive pulmonary disease) ICD Codes: J44.9 - Chronic obstructive pulmonary disease, unspecified Status: Chronic (10) Alzheimer's dementia ICD Codes: G30.9 - Alzheimer's disease, unspecified Status: Chronic Physician Certification 2 Midnight Certification Type: Admission for Inpatient Services Order for Inpatient Services 3The services are ordered in accordance with Medicare regulations or non- Medicare payer requirements, as applicable. In the case of services not specified as inpatient-only, they are appropriately provided as inpatient services in accordance with the 2-midnight benchmark. Estimated LOS (days): 3 3 days is the estimated time the patient will need to remain in the hospital, assuming treatment plan goals are met and no additional complications. Post-Hospital Plan: [facility] Keaton Anderson MD Apr 22, 2017 11:38
[2017-04-22 11:39] LABS: BACTERIA, URINE MOD /hpf; BLOOD, URINE MOD (NEG); COMMENT (UR) CULTURE INDICATED; CULTURE IF INDICATED CULTURE INDICATED; GLUCOSE,URINE NEG (NEG); KETONE, URINE NEG (NEG); MUCUS URINE FEW /lpf (OCC); NITRITE,URINE NEG (NEG); SQUAMOUS EPITHELIAL CELL URINE <1 /hpf (0-5); URINE COLOR YELLOW (YELLW/STRAW)
[2017-04-22] MEDS ORDERED: ONDANSETRON HCL 4 MG/2 ML VIAL IV PUSH PRN (11:45)
[2017-04-22] MEDS ORDERED: traMADol HCL 50 MG TAB PO PRN (11:45)
[2017-04-22] MEDS ORDERED: ACETAMINOPHEN 325 MG TAB PO PRN ×2 (11:45→17:30)
[2017-04-22] MEDS ORDERED: LORazepam 0.5 MG TAB PO PRN (11:45)
[2017-04-22] MEDS ORDERED: MAGNESIUM HYDROXIDE SUSP 30 ML CUP PO PRN ×2 (11:45→17:30)
[2017-04-22] MEDS ORDERED: LACTATED RINGER'S 1000 ML INJ 1,000 ML IV ONE (12:00)
[2017-04-22] MEDS ORDERED: PROPOFOL 200 MG/20 ML AMP IV ONE (12:00)
[2017-04-22] MEDS ORDERED: PHENYLEPH/NS 1000 MCG/10 ML SYR IV ONE (12:00)
[2017-04-22] MEDS ORDERED: ePHEDrine/NS 25 MG/5 ML SYR IV ONE (12:00)
[2017-04-22] MEDS ORDERED: RESP: ALBUTEROL 2.5 MG/IPRATROPIUM 0.5 MG NEB (PRN) NEB (12:15)
[2017-04-22] MEDS: SODIUM CHLOR 0.45% 1000 ML INJ 1,000 ML IV SCH ×2 (12:23→23:40)
[2017-04-22] MEDS: LEVOFLOXACIN 500 MG PREMIX INJ 100 ML IV SCH (12:29)
[2017-04-22 12:33] VITALS: BP 129/59; PULSE 72; RESP 18; O2SAT 95
[2017-04-22] MEDS ORDERED: GENTAMICIN SULFATE 80 MG/2 ML VIAL ONE ×2 (14:10→14:11)
[2017-04-22 14:24] VITALS: PULSE 73
[2017-04-22] MEDS ORDERED: SODIUM CHLORID 0.9% 500 ML IV PRN (15:15)
[2017-04-22] MEDS ORDERED: CHLORHEXIDINE GLUCONATE 2 % 1 PACK (2 CLOTHS) TOPICAL PRN (15:15)
[2017-04-22] MEDS ORDERED: LACTATED RINGER'S 1000 ML IV PRN (15:15)
[2017-04-22] MEDS ORDERED: POVIDONE IODINE 5% (ANTISEPSIS KIT) 4 APPLICATIONS EACH NARE PRN (15:15)
[2017-04-22] MEDS ORDERED: METOPROLOL TARTRATE 25 MG TAB PO PRN (15:15)
--- NOTE | 2017-04-22 15:47 | EKG ---
Date Performed: 04/22/2017 Time Performed: 04:23:57 PTAGE: 81 years EKG: Sinus rhythm WITH FIRST DEGREE AV BLOCK INTRAVENTRICULAR CONDUCTION DELAY ABNORMAL ECG PREVIOUS TRACING : 04/22/2017 04.22 Compared to prior tracing no significant change DOCTOR: Rodrigo Aguilera Interpretating Date/Time 04/25/2017 06:49:26
[2017-04-22] MEDS ORDERED: ALUMINUM/MAGNESIUM/SIMETH 30 ML CUP PO PRN (17:30)
[2017-04-22] MEDS ORDERED: SODIUM CHLORIDE 0.9% FLUSH 10 ML FLUSH IV FLUSH PRN (17:30)
[2017-04-22] MEDS ORDERED: MORPHINE SULFATE 8 MG/ML INJ IV PUSH PRN (17:30)
[2017-04-22] MEDS ORDERED: BISACODYL 10 MG SUPP RECTAL PRN (17:30)
[2017-04-22] MEDS ORDERED: TEMAZEPAM 15 MG CAP PO PRN (17:30)
[2017-04-22] MEDS ORDERED: LACTULOSE SYRUP 20 GM/30 ML CUP PO PRN (17:30)
[2017-04-22] MEDS ORDERED: SENNOSIDES 8.6 MG TAB PO PRN (17:30)
[2017-04-22] MEDS ORDERED: ONDANSETRON HCL 4 MG/2 ML VIAL IVP PRN (17:30)
[2017-04-22] MEDS ORDERED: Post-op Orders (for Pharmacy) MISC XX ONE (17:30)
[2017-04-22] MEDS ORDERED: ACETAMINOPHEN/HYDROcodone 325 MG/5 MG TAB PO PRN (17:30)
[2017-04-22] MEDS ORDERED: fentaNYL CITRATE 250 MCG/5 ML AMP ONE (17:44)
--- NOTE | 2017-04-22 17:44 | PD.OP ---
cc: Keaton Iniguez MD Operative Report Date of Surgery: Apr 22, 2017 Preoperative Diagnosis: (1) Closed displaced fracture of right femoral neck Postoperative Diagnosis: (1) Closed displaced fracture of right femoral neck Procedure: Right bipolar hip arthroplasty Implants used: Depuy Corail size 15 press-fit femoral stem with a 52 bipolar cup and a standard neck length Anesthesia: Gen. Surgeon: Keaton Iniguez Anchorman(s): Laura Medellin PA-C (Ashley) The surgical procedure was assisted by my physician's production administrative assistant. Her presence was necessary throughout the case for manipulation and positioning of the surgical extremity. My PA was assisting me throughout the duration of this procedure. The skill set of the physician production administrative assistant was medically necessary to complete this procedure. During the surgical case the surgical training specialist was working at the back table and the physician production administrative assistant was directly assisting me. Operation and Findings: Indications: This 81-year-old male with advanced dementia apparently fell 3 days ago at the nursing facility where he resides. The patient was brought to [facility] today and x-rays revealed a displaced right femoral neck fracture. After discussion with the family, as well as the risks and benefits of surgical versus nonsurgical management he presents for bipolar hip arthroplasty. Procedure and findings: The patient was taken to the operative suite and after undergoing an adequate level of general anesthesia was placed in the lateral decubitus position on the operating table. Preoperative antibiotics consisted of clindamycin 600 mg IV and vancomycin 1 g IV. The right lower extremity was prepped and draped in usual sterile fashion with alcohol, Hibiclens and DuraPrep. A standard posterior lateral approach to the hip was made with an incision centered over the greater trochanter. This was carried down to skin and subcutaneous tense tissue with a knife. Hemostasis was obtained electrocautery. The iliotibial band was identified distally and the gluteus sergio fascia proximally. These were split longitudinally. This brought the greater trochanteric bursa into view which was partially excised. There was hemorrhagic tissue present. The bursa was partially excised. The short external rotators were released from the posterior aspect of the femur up to the level of the piriformis. This was tagged. The sciatic nerve was palpable in the depths of the wound and avoided. A T capsulotomy incision was made. A joint hemarthrosis was evacuated. Comminuted fragments were removed. The head was then removed and sized on the back table. A neck cut was then made. Trial components were placed in the acetabulum and a 52 selected. The proximal femur then was sequentially broached up to a size 15. With the broach in place trial reductions were completed. A standard neck length gave the best range of motion and stability with equalization of limb lengths. These components were therefore selected. The wound was thoroughly irrigated with pulse lavage. The size 15 stem was then impacted into place. The 52 outer diameter bipolar head with a standard neck length was then impacted onto the proximal aspect of the stem with a Kumar taper fit. Reduction was then easily accomplished and good range of motion, stability and equalization of limb lengths again noted. The wound was again thoroughly irrigated with pulse lavage. It was closed in layers utilizing #1 Tycron and #1 Vicryl on the posterior capsule, #1 Vicryl on the iliotibial band and gluteus Sergio fascia, 0 Vicryl suture on the deep tissue, 2-0 Vicryl suture and the subcutaneous tense tissue and armona on the skin. Sterile dressings were applied, the patient was placed into an abduction pillow, awakened, transferred to the hospital bed, and taken to the recovery room in stable condition. Estimated blood loss: 100 cc Complications: None Keaton Iniguez MD Apr 22, 2017 17:44
[2017-04-22] MEDS: CLINDAMYCIN INJ 600 MG in SODIUM CHLORIDE 0.9% INJ 100 ML IV SCH (18:00)
--- NOTE | 2017-04-22 18:09 | RADRPT ---
EXAM DATE/TIME: 04/22/2017 17:30 [facility] COMPARISON: HIP RIGHT (AP&LAT 2/3VWS) W AP PELVIS, April 21, 2017, 23:37. INDICATIONS : Post operative. MEDICAL HISTORY : Hip fracture. SURGICAL HISTORY : Hip surgery. ENCOUNTER: Initial ACUITY: 1 day PAIN SCORE: Non-responsive. LOCATION: Right hip. FINDINGS: A right hip replacement is noted with prosthesis in good position. CONCLUSION: Status post right hip replacement with prosthesis in good position. Jose Cruz Dowling MD on April 22, 2017 at 18:04 Board Certified Radiologist. This report was verified electronically.
[2017-04-22] MEDS: LACTATED RINGER'S 1000 ML INJ 1,000 ML IV SCH (18:10)
[2017-04-22] MEDS ORDERED: DO NOT ADM ANY ANTICOAGULANT DRUGS PRN (18:15)
[2017-04-22] MEDS ORDERED: CLINDAMYCIN PHOS 600 MG/4 ML VIAL ONE (18:19)
[2017-04-22 18:46] VITALS: BP 125/64; PULSE 78; RESP 19; TEMP 95.2; O2SAT 96
[2017-04-22] MEDS: SODIUM CHLORIDE 0.9% FLUSH 10 ML FLUSH IV FLUSH SCH (20:24)
[2017-04-22] MEDS: MEMANTINE HCL 10 MG TAB PO SCH (20:24)
[2017-04-22] MEDS: DOCUSATE SODIUM 50 MG/SENNA 8.6 MG TAB PO SCH (20:24)
[2017-04-22] MEDS: risperiDONE 0.5 MG TAB PO SCH (20:25)
[2017-04-22 23:25] VITALS: BP 109/58; PULSE 88; RESP 18; TEMP 97.7; O2SAT 94
[2017-04-23] MEDS: CLINDAMYCIN INJ 600 MG in SODIUM CHLORIDE 0.9% INJ 100 ML IV SCH ×3 (00:35→13:13)
[2017-04-23 03:35] VITALS: BP 100/54; PULSE 74; RESP 18; TEMP 96.7; O2SAT 97
[2017-04-23] MEDS: ACETAMINOPHEN/HYDROcodone 325 MG/5 MG TAB PO PRN (04:57)
[2017-04-23] MEDS: LACTATED RINGER'S 1000 ML INJ 1,000 ML IV SCH ×2 (06:30→19:00)
--- NOTE | 2017-04-23 08:04 | PD.ORT.PN ---
Subjective Post Op Day #: 1 Subjective Remarks Patient in bed awake and is severely confused. He does mumble some audible responses to me but are not appropriate. No family at bedside Objective Vitals Vital Signs Date Time Temp Pulse Resp B/P (MAP) Pulse Ox O2 Delivery O2 Flow Rate FiO2 04/23/17 03:35 96.7 74 18 100/54 (69) 97 04/22/17 23:25 97.7 88 18 109/58 (75) 94 04/22/17 18:46 95.2 78 19 125/64 (84) 96 04/22/17 18:30 97.8 71 17 131/60 (83) 98 Nasal Cannula 2 04/22/17 18:15 76 16 139/66 (90) 92 Nasal Cannula 2 04/22/17 18:00 78 17 139/63 (88) 92 Room Air 04/22/17 17:50 75 17 137/62 (87) 95 Room Air 04/22/17 17:40 97.7 94 18 160/71 (100) 99 T-Piece 10 04/22/17 15:15 65 16 118/62 (80) 99 04/22/17 14:24 Nasal Cannula 2 04/22/17 14:24 98.0 73 16 123/64 (83) 100 04/22/17 14:24 73 04/22/17 14:23 04/22/17 12:33 72 18 129/59 (82) 95 Room Air 04/22/17 09:45 82 18 136/84 (101) 95 Room Air I/O 04/22/17 04/22/17 04/22/17 04/23/17 04/23/17 04/23/17 07:00 15:00 23:00 07:00 15:00 23:00 Intake Total 250 ml 4334 ml 120 ml Output Total 650 ml 550 ml Balance 250 ml 3684 ml -430 ml Intake Oral 120 ml 120 ml IV Total 250 ml 1214 ml Other 3000 ml Output Urine Total 500 ml 550 ml Estimated Blood Loss 150 ml # Voids 1 # Bowel Movements 0 0 Result Diagram: 04/22/17 0145 04/22/17 0145 Imaging Last Impressions Hip X-Ray 04/22/17 0000 Signed Impressions: Service Date/Time: Saturday, April 22, 2017 17:30 - CONCLUSION: Status post right hip replacement with prosthesis in good position. Jose Cruz Dowling MD Hip and Pelvis X-Ray 04/21/172319 Signed Impressions: Service Date/Time: Friday, April 21, 2017 23:37 - CONCLUSION: Impacted femoral neck fracture on the right. Tiago Harris MD Chest X-Ray 04/21/172319 Signed Impressions: Service Date/Time: Friday, April 21, 2017 23:37 - CONCLUSION: Normal examination except for blunting of the left lateral costophrenic angle could be hiding a small pleural effusion. Tiago Harris MD Procedures Right bipolar hip arthroplasty 04/22/2017 Objective Remarks RUE: Dressing dry and intact,hip abductor pillow in place, calf is soft, neuro exam unobtainable Assessment & Plan Ortho Post Op Day #: 1 Problem List: (1) Fall ICD Codes: W19.XXXA - Unspecified fall, initial encounter Status: Acute Qualifiers: Qualified Codes: W19.XXXA - Unspecified fall, initial encounter (2) Closed displaced fracture of right femoral neck ICD Codes: S72.001A - Fracture of unspecified part of neck of right femur, initial encounter for closed fracture Status: Acute (3) Alzheimer's dementia ICD Codes: G30.9 - Alzheimer's disease, unspecified Status: Chronic (4) COPD (chronic obstructive pulmonary disease) ICD Codes: J44.9 - Chronic obstructive pulmonary disease, unspecified Status: Chronic (5) CKD (chronic kidney disease), stage III ICD Codes: N18.3 - Chronic kidney disease, stage 3 (moderate) Status: Chronic Assessment and Plan POD #1 Right bipolar hip arthroplasty Ortho status stable Progress rehab, weightbearing as tolerated Lovenox for DVT prophylaxis No change dressings Discharge planning Laura Medellin Apr 23, 2017 08:04
[2017-04-23 08:25] VITALS: BP 117/60; PULSE 77; RESP 19; TEMP 95.6; O2SAT 95
[2017-04-23] MEDS: MEMANTINE HCL 10 MG TAB PO SCH ×2 (08:27→20:04)
[2017-04-23] MEDS: DOCUSATE SODIUM 50 MG/SENNA 8.6 MG TAB PO SCH ×2 (08:27→20:04)
[2017-04-23] MEDS: SODIUM CHLORIDE 0.9% FLUSH 10 ML FLUSH IV FLUSH SCH ×2 (08:27→20:04)
--- NOTE | 2017-04-23 10:46 | HHI.PR ---
Subjective Remarks sitting at nurse station. eating with assist demented. Objective Vitals nad sitting in chair dementia heart reg lung cta abd s/nt ext no edema Vital Signs Date Time Temp Pulse Resp B/P (MAP) Pulse Ox O2 Delivery O2 Flow Rate FiO2 04/23/17 08:25 95.6 77 19 117/60 (79) 95 04/23/17 03:35 96.7 74 18 100/54 (69) 97 04/22/17 23:25 97.7 88 18 109/58 (75) 94 04/22/17 18:46 95.2 78 19 125/64 (84) 96 04/22/17 18:30 97.8 71 17 131/60 (83) 98 Nasal Cannula 2 04/22/17 18:15 76 16 139/66 (90) 92 Nasal Cannula 2 04/22/17 18:00 78 17 139/63 (88) 92 Room Air 04/22/17 17:50 75 17 137/62 (87) 95 Room Air 04/22/17 17:40 97.7 94 18 160/71 (100) 99 T-Piece 10 04/22/17 15:15 65 16 118/62 (80) 99 04/22/17 14:24 Nasal Cannula 2 04/22/17 14:24 98.0 73 16 123/64 (83) 100 04/22/17 14:24 73 04/22/17 14:23 04/22/17 12:33 72 18 129/59 (82) 95 Room Air Result Diagram: 04/22/17 0145 04/22/17 0145 A/P Problem List: (1) Closed displaced fracture of right femoral neck ICD Codes: S72.001A - Fracture of unspecified part of neck of right femur, initial encounter for closed fracture Status: Acute Plan: Pt is 81 yo man with advanced dementa/behavioral disturbances. recently admitted x 2 t psychiatry dept for agitation and also seen for SCC of finger s/p resection, and stage 2 sacral decub. Pt was discharged to a facility and the brought back after a fall and found to have a right femur neck fx/impacted Also noted to have mild ruben/dehydration/hypernatremia and uti s/p Right bipolar hip arthroplasty 04/22 abx for uti. f/u cx ivf with 1/2NS and recheck bmp pending cont home psychiatric medications. hold bp med until bp higher prn pain control dvt prophyaxis IS PT try to d/c to snf ?tomorrow if stable. (2) UTI (urinary tract infection) ICD Codes: N39.0 - Urinary tract infection, site not specified Status: Acute Plan: see above (3) RUBEN (acute kidney injury) ICD Codes: N17.9 - Acute kidney failure, unspecified Status: Acute Plan: see above (4) Hypernatremia ICD Codes: E87.0 - Hyperosmolality and hypernatremia Status: Acute Plan: above (5) Dehydration ICD Codes: E86.0 - Dehydration Status: Acute Plan: above (6) Squamous cell skin cancer, finger ICD Codes: C44.621 - Squamous cell carcinoma of skin of unspecified upper limb , including shoulder Status: Resolved (7) HTN (hypertension), benign ICD Codes: I10 - Essential (primary) hypertension Status: Chronic (8) CKD (chronic kidney disease), stage III ICD Codes: N18.3 - Chronic kidney disease, stage 3 (moderate) Status: Chronic (9) COPD (chronic obstructive pulmonary disease) ICD Codes: J44.9 - Chronic obstructive pulmonary disease, unspecified Status: Chronic (10) Alzheimer's dementia ICD Codes: G30.9 - Alzheimer's disease, unspecified Status: Chronic Keaton Anderson MD Apr 23, 2017 10:46
[2017-04-23] MEDS: SODIUM CHLOR 0.45% 1000 ML INJ 1,000 ML IV SCH (11:35)
[2017-04-23 12:43] LABS: AUTOMATED NEUTROPHIL # 15.8 TH/MM3 (1.8-7.7); BASOPHIL % 0.2 % (0.0-2.0); EOSINOPHIL % 0.1 % (0.0-4.0); HEMATOCRIT 38.6 % (39.0-51.0); HEMO FLAGS DIFF FINAL; LYMPH % 6.5 % (9.0-44.0); LYMPHOCYTE # 1.2 TH/MM3 (1.0-4.8); MEAN CELL VOLUME 95.2 FL (80.0-100.0); MEAN CORPUSCULAR HGB CONC 32.6 % (32.0-36.0); MONO % 7.4 % (0.0-8.0); NEUT % 85.8 % (16.0-70.0); PLATELET COUNT 151 TH/MM3 (150-450); RED BLOOD COUNT 4.05 MIL/MM3 (4.50-5.90); RED CELL DISTRIBUTION WIDTH 13.4 % (11.6-17.2); WHITE BLOOD COUNT 18.4 TH/MM3 (4.0-11.0)
[2017-04-23 12:57] LABS: BICARBONATE 23.8 MEQ/L (21.0-32.0); POTASSIUM 4.1 MEQ/L (3.5-5.1)
[2017-04-23] MEDS: LEVOFLOXACIN 500 MG PREMIX INJ 100 ML IV SCH (13:14)
[2017-04-23 16:00] VITALS: BP 118/52; PULSE 74; RESP 19; TEMP 97.9; O2SAT 95
[2017-04-23] MEDS: ENOXAPARIN SODIUM 40 MG/0.4 ML SYRINGE SQ SCH (16:53)
[2017-04-23 18:13] VITALS: O2SAT 94
[2017-04-23] MEDS: MULTIVITAMINS/MINERALS THERAPEUTIC TAB PO SCH (20:04)
[2017-04-23] MEDS: risperiDONE 0.5 MG TAB PO SCH (20:04)
[2017-04-23 20:40] VITALS: BP 91/61; PULSE 80; RESP 18; TEMP 98.2; O2SAT 94
[2017-04-23 23:05] VITALS: BP 127/59; PULSE 85; RESP 17; TEMP 97; O2SAT 95
[2017-04-24] MEDS: SODIUM CHLOR 0.45% 1000 ML INJ 1,000 ML IV SCH (00:19)
[2017-04-24 05:05] VITALS: BP 121/64; PULSE 72; RESP 16; TEMP 96.6; O2SAT 96
[2017-04-24] MEDS ORDERED: ENOX40P SQ (07:43)
[2017-04-24] MEDS ORDERED: LORA-392 PO (07:47)
[2017-04-24] MEDS ORDERED: TRAM50TA PO (07:47)
[2017-04-24] MEDS ORDERED: RISP0.5T20 PO (07:47)
--- NOTE | 2017-04-24 07:48 | HHI.DCPOC ---
Discharge Care Plan Diagnosis: (1) Closed displaced fracture of right femoral neck (2) UTI (urinary tract infection) (3) Hypernatremia (4) Dehydration Goals to Promote Your Health * To prevent worsening of your condition and complications * To maintain your health at the optimal level Directions to Meet Your Goals Take your medications as prescribed Follow your dietary instruction Follow activity as directed Keep your appointments as scheduled Take your immunizations and boosters as scheduled If your symptoms worsen call your PCP, if no PCP go to Urgent Care Center or Emergency Room Smoking is Dangerous to Your Health. Avoid second hand smoke Call the 24-hour hour crisis hotline for domestic abuse at Keaton Anderson MD Apr 24, 2017 07:48
[2017-04-24 08:00] VITALS: BP 97/64; PULSE 69; RESP 20; TEMP 95.7; O2SAT 98
[2017-04-24 08:00] LABS: AUTOMATED NEUTROPHIL # 13.9 TH/MM3 (1.8-7.7); BASOPHIL # 0.1 TH/MM3 (0-0.2); BASOPHIL % 0.3 % (0.0-2.0); EOSINOPHIL % 0.3 % (0.0-4.0); HEMATOCRIT 41.1 % (39.0-51.0); HEMO FLAGS DIFF FINAL; LYMPH % 8.9 % (9.0-44.0); LYMPHOCYTE # 1.5 TH/MM3 (1.0-4.8); MEAN CELL VOLUME 94.7 FL (80.0-100.0); MEAN CORPUSCULAR HEMOGLOBIN 30.1 PG (27.0-34.0); MEAN CORPUSCULAR HGB CONC 31.8 % (32.0-36.0); MONO % 8.2 % (0.0-8.0); NEUT % 82.3 % (16.0-70.0); PLATELET COUNT 155 TH/MM3 (150-450); RED BLOOD COUNT 4.34 MIL/MM3 (4.50-5.90); RED CELL DISTRIBUTION WIDTH 13.7 % (11.6-17.2); WHITE BLOOD COUNT 16.9 TH/MM3 (4.0-11.0)
[2017-04-24 08:06] LABS: BICARBONATE 25.6 MEQ/L (21.0-32.0); POTASSIUM 4.9 MEQ/L (3.5-5.1)
--- NOTE | 2017-04-24 08:47 | PD.ORT.PN ---
Subjective Post Op Day #: 2 Subjective Remarks Patient in bed awake and is severely confused. He does mumble some audible responses to me but are not appropriate. No family at bedside Objective Vitals Vital Signs Date Time Temp Pulse Resp B/P (MAP) Pulse Ox O2 Delivery O2 Flow Rate FiO2 04/24/17 07:42 Room Air 04/24/17 05:05 96.6 72 16 121/64 (83) 96 04/23/17 23:05 97.0 85 17 127/59 (81) 95 04/23/17 20:40 98.2 80 18 91/61 (71) 94 04/23/17 18:13 94 04/23/17 16:00 97.9 74 19 118/52 (74) 95 I/O 04/23/17 04/23/17 04/23/17 04/24/17 04/24/17 04/24/17 06:59 14:59 22:59 06:59 14:59 22:59 Intake Total 120 ml 960 ml 60 ml Output Total 550 ml Balance -430 ml 960 ml 60 ml Intake Oral 120 ml 960 ml 60 ml Output Urine Total 550 ml # Voids 5 3 # Bowel Movements 0 0 0 Result Diagram: 04/24/17 0617 04/24/17 0617 Imaging Last Impressions Hip X-Ray 04/22/17 0000 Signed Impressions: Service Date/Time: Saturday, April 22, 2017 17:30 - CONCLUSION: Status post right hip replacement with prosthesis in good position. Jose Cruz Dowling MD Hip and Pelvis X-Ray 04/21/172319 Signed Impressions: Service Date/Time: Friday, April 21, 2017 23:37 - CONCLUSION: Impacted femoral neck fracture on the right. Tiago Harris MD Chest X-Ray 04/21/172319 Signed Impressions: Service Date/Time: Friday, April 21, 2017 23:37 - CONCLUSION: Normal examination except for blunting of the left lateral costophrenic angle could be hiding a small pleural effusion. Tiago Harris MD Procedures Right bipolar hip arthroplasty 04/22/2017 Objective Remarks RUE: Dressing dry and intact,hip abductor pillow in place, calf is soft, neuro exam unobtainable Assessment & Plan Ortho Post Op Day #: 2 Problem List: (1) Fall ICD Codes: W19.XXXA - Unspecified fall, initial encounter Status: Acute Qualifiers: Qualified Codes: W19.XXXA - Unspecified fall, initial encounter (2) Closed displaced fracture of right femoral neck ICD Codes: S72.001A - Fracture of unspecified part of neck of right femur, initial encounter for closed fracture Status: Acute (3) Alzheimer's dementia ICD Codes: G30.9 - Alzheimer's disease, unspecified Status: Chronic (4) COPD (chronic obstructive pulmonary disease) ICD Codes: J44.9 - Chronic obstructive pulmonary disease, unspecified Status: Chronic (5) CKD (chronic kidney disease), stage III ICD Codes: N18.3 - Chronic kidney disease, stage 3 (moderate) Status: Chronic Assessment and Plan POD #2 Right bipolar hip arthroplasty Ortho status stable Progress rehab, weightbearing as tolerated Posterior hip precautions, hip abductor pillow while patient is in bed Lovenox for DVT prophylaxis No change dressings Clear for discharge from orthopedic standpoint Rehabilitation RN Do not remove bandage until 04/30/2017, cleansed with alcohol Follow-up in 1-[address] Iniguez or myself Laura Medellin Apr 24, 2017 08:47
[2017-04-24] MEDS: SODIUM CHLORIDE 0.9% FLUSH 10 ML FLUSH IV FLUSH SCH (09:00)
[2017-04-24] MEDS ORDERED: LEVA500T20 PO (09:21)
--- NOTE | 2017-04-24 09:25 | HHI.PR ---
Subjective Remarks demented . nad Objective Vitals demented heart reg lung cta abd s/nt ext no edema Vital Signs Date Time Temp Pulse Resp B/P (MAP) Pulse Ox O2 Delivery O2 Flow Rate FiO2 04/24/17 08:00 95.7 69 20 97/64 (75) 98 04/24/17 07:42 Room Air 04/24/17 05:05 96.6 72 16 121/64 (83) 96 04/23/17 23:05 97.0 85 17 127/59 (81) 95 04/23/17 20:40 98.2 80 18 91/61 (71) 94 04/23/17 18:13 94 04/23/17 16:00 97.9 74 19 118/52 (74) 95 Result Diagram: 04/24/1761604/24/17 06 A/P Problem List: (1) Closed displaced fracture of right femoral neck ICD Codes: S72.001A - Fracture of unspecified part of neck of right femur, initial encounter for closed fracture Status: Acute Plan: Pt is 81 yo man with advanced dementa/behavioral disturbances. recently admitted x 2 t psychiatry dept for agitation and also seen for SCC of finger s/p resection, and stage 2 sacral decub. Pt was discharged to a facility and the brought back after a fall and found to have a right femur neck fx/impacted Also noted to have mild ruben/dehydration/hypernatremia and uti....improving. s/p Right bipolar hip arthroplasty 04/22 UTI. proteus d/c ivf convert to po abx. levaquin pt at baseline mental status..overall seems to have a poor prognosis but will d/ c to snf for trial of PT f/u ortho. wbat dvt prophylaxis and prn pain control hold bp meds for lower bp. (2) UTI (urinary tract infection) ICD Codes: N39.0 - Urinary tract infection, site not specified Status: Acute Plan: see above (3) RUBEN (acute kidney injury) ICD Codes: N17.9 - Acute kidney failure, unspecified Status: Acute Plan: see above (4) Hypernatremia ICD Codes: E87.0 - Hyperosmolality and hypernatremia Status: Acute Plan: above (5) Dehydration ICD Codes: E86.0 - Dehydration Status: Acute Plan: above (6) Squamous cell skin cancer, finger ICD Codes: C44.621 - Squamous cell carcinoma of skin of unspecified upper limb , including shoulder Status: Resolved (7) HTN (hypertension), benign ICD Codes: I10 - Essential (primary) hypertension Status: Chronic (8) CKD (chronic kidney disease), stage III ICD Codes: N18.3 - Chronic kidney disease, stage 3 (moderate) Status: Chronic (9) COPD (chronic obstructive pulmonary disease) ICD Codes: J44.9 - Chronic obstructive pulmonary disease, unspecified Status: Chronic (10) Alzheimer's dementia ICD Codes: G30.9 - Alzheimer's disease, unspecified Status: Chronic Keaton Anderson MD Apr 24, 2017 09:25
[2017-04-24 09:32] VITALS: O2SAT 95
[2017-04-24] MEDS: DOCUSATE SODIUM 50 MG/SENNA 8.6 MG TAB PO SCH (10:25)
[2017-04-24] MEDS: MEMANTINE HCL 10 MG TAB PO SCH (10:25)
[2017-04-24] MEDS: MULTIVITAMINS/MINERALS THERAPEUTIC TAB PO SCH (10:26)
[2017-04-24] MEDS ORDERED: LEVOFLOXACIN 500 MG TAB PO ONE (11:00)
[2017-04-24 12:00] VITALS: BP 98/60; PULSE 83; RESP 20; TEMP 96; O2SAT 92
[2017-04-24] MEDS: ENOXAPARIN SODIUM 40 MG/0.4 ML SYRINGE SQ SCH (15:52)
[2017-04-24] MEDS: ACETAMINOPHEN/HYDROcodone 325 MG/5 MG TAB PO PRN (15:53)
== END 2017-04-24 18:54 | DRG 470 ==
LOC: NEPC 23:15 → NEDA 04-22 04:59 → N06A 04-22 18:39
PROVIDERS: ADMIT Hospitalist; ATTEND Hospitalist
PROC: 0SR90JA Replacement of Right Hip Joint with Synthetic Substitute, Uncemented, Open Approach (ICD-10-PCS; principal; 2017-04-22 15:35)
DX: S72.031A Displaced midcervical fracture of right femur, initial encounter for closed fracture (principal); N17.9 Acute kidney failure, unspecified; L89.152 Pressure ulcer of sacral region, stage 2; E87.0 Hyperosmolality and hypernatremia; N39.0 Urinary tract infection, site not specified; F02.81 Dementia in other diseases classified elsewhere, unspecified severity, with behavioral disturbance; J44.9 Chronic obstructive pulmonary disease, unspecified; E86.0 Dehydration; G30.9 Alzheimer's disease, unspecified; N18.3 Chronic kidney disease, stage 3 (moderate); I12.9 Hypertensive chronic kidney disease with stage 1 through stage 4 chronic kidney disease, or unspecified chronic kidney disease; C44.92 Squamous cell carcinoma of skin, unspecified; N40.0 Benign prostatic hyperplasia without lower urinary tract symptoms; F41.9 Anxiety disorder, unspecified; W19.XXXA Unspecified fall, initial encounter; Y92.129 Unspecified place in nursing home as the place of occurrence of the external cause
CPT/HCPCS: 71010; 73501; 73502; 80048; 80053; 81001; 85025; 85610; 85730; 86850; 86900; 86901; 87077; 87086; 87186; 93005; C1776; J1580; J1650; J1956; J2370; J3010; J3370; J7030; J7050; J7120

== ENCOUNTER 2017-05-02 17:07 | Observation (INO) | payer MEDICARE ==
[~2017-05-02] VITALS: Ht 170.2 cm; Wt 78.0 kg
[~2017-05-02 17:07] MED LIST changes: -AMLO10 PO; +ENOX40P SQ; +LEVA500T20 PO; -LORA2INJ2 IM; -RULOSUS PO; -ULTR50TA5 PO
[2017-05-02 17:40] VITALS: BP 117/74; PULSE 84; RESP 20; TEMP 98.1; O2SAT 96
[2017-05-02 17:44] VITALS: BP 117/74; PULSE 86; RESP 18; TEMP 98.1; O2SAT 96
--- NOTE | 2017-05-02 18:00 | PD ---
HPI Chief Complaint: Hip Injury Time Seen by Provider: 17:27 Travel History International Travel<30 days: No Contact w/Intl Traveler<30days: No Traveled to known affect area: No History of Present Illness HPI 81-year-old male that presents to the ED for evaluation of medical clearance. Patient was brought here by [facility] for evaluation of possible medical clearance. It was really no report from [facility] or from any provider. Unclear as to why the patient was brought here. He does have a significant history of dementia and he cannot give any history. Patient apparently was at Dr. Iniguez office today for a follow-up of his hip fracture and from history from ED nurse who got the report she was sent here by the office but there is no instructions or no note from the doctor. Patient voices no complaints. Again history is limited. Patient able paperwork from the assisted living facility where he stays. I did review patient's medical record and he had surgery less than a month ago on his right hip. Also I reviewed lab done today at this facility which showed elevated sodium. He appears to have no symptoms. Also acute on chronic kidney injury. PFSH Past Medical History Alzheimer's Disease: Yes Arthritis: No Autoimmune Disease: No Anxiety: Yes Depression: Yes Cancer: Yes (LEFT HAND- 2017 ) Cardiovascular Problems: No (per previous report) High Cholesterol: No Congestive Heart Failure: No Cerebrovascular Accident: No Diabetes: No (per previous report) Endocrine: No Gastrointestinal Disorders: No GERD: No Genitourinary: Yes Headaches: No (per previous report) Hiatal Hernia: No Hypertension: Yes Immune Disorder: No Implanted Vascular Access Dvce: No Musculoskeletal: Yes Neurologic: Yes (dementia ) Psychiatric: Yes (pt was diagnosised with Dementia with Behavioral Disturbance) Reproductive: No Respiratory: No Migraines: No Seizures: No (per previous report) Thyroid Disease: No ?: Not Past Surgical History Pacemaker: Yes Other Surgery: Yes (LEFT HAND) Social History Alcohol Use: No Tobacco Use: No Substance Use: No Allergies-Medications (Allergen,Severity, Reaction): Coded Allergies: penicillin G (Unverified Allergy, Unknown, 05/02/17) codeine (Unverified Adverse Reaction, Unknown, NAUSEA/VOMITTING, 05/02/17) Reported Meds & Prescriptions Reported Meds & Active Scripts Active Levaquin (Levofloxacin) 500 Mg Tablet 500 Mg PO DAILY 7 Days Risperdal (Risperidone) 0.5 Mg Tab 0.5 Mg PO HS Ativan (Lorazepam) 0.5 Mg Tab 0.5 Mg PO BID PRN Tramadol (Tramadol HCl) 50 Mg Tab 50 Mg PO Q4H PRN Lovenox Inj (Enoxaparin Sodium) 40 Mg/0.4 Ml Syr 40 Mg SQ Q24H 14 Days Namenda (Memantine) 10 Mg Tab 10 Mg PO BID Reported Milk of Magnesia Liq (Magnesium Hydroxide) 400 Mg/5 Ml Susp 30 Ml PO DAILY PRN Tylenol (Acetaminophen) 325 Mg Tab 650 Mg PO Q4H PRN Review of Systems Except as stated in HPI: all other systems reviewed are Neg Physical Exam Narrative GENERAL: SKIN: Warm and dry. HEAD: Atraumatic. Normocephalic. EYES: Pupils equal and round. No scleral icterus. No injection or drainage. ENT: No nasal bleeding or discharge. Mucous membranes pink and moist. Tongue is midline. No uvula deviation. NECK: Trachea midline. No JVD. CARDIOVASCULAR: Regular rate and rhythm. No murmurs, S3, S4. RESPIRATORY: No accessory muscle use. Clear to auscultation. Breath sounds equal bilaterally. GASTROINTESTINAL: Abdomen soft, non-tender, nondistended. Hepatic and splenic margins not palpable. MUSCULOSKELETAL: Extremities without clubbing, cyanosis, or edema. No obvious deformities. Full range of motion of the upper and lower extremities bilaterally. Patient does have a surgical scar on the right hip with no sign of acute disease. 2+ pulses bilaterally. NEUROLOGICAL: Awake and alert. No obvious cranial nerve deficits. Motor grossly within normal limits. Five out of 5 muscle strength in the arms and legs. Normal speech. PSYCHIATRIC: Appropriate mood and affect; insight and judgment normal. Data Data Last Documented VS Vital Signs Date Time Temp Pulse Resp B/P (MAP) Pulse Ox O2 Delivery O2 Flow Rate FiO2 05/02/17 17:44 98.1 86 18 117/74 (88) 96 Room Air Orders Orders Electrocardiogram (05/02/17 18:29) Complete Blood Count With Diff (05/02/17 18:29) Basic Metabolic Panel (Bmp) (05/02/17 18:29) Urinalysis - C+S If Indicated (05/02/17 18:29) Magnesium (Mg) (05/02/17 18:29) Sodium Chlorid 0.9% 500 Ml Inj (Ns 500 M (05/02/17 19:00) MDM Medical Decision Making Medical Screen Exam Complete: Yes Emergency Medical Condition: Yes Medical Record Reviewed: Yes Differential Diagnosis Medical clearance versus recheck versus hip pain versus normal exam Narrative Course 81-year-old male that presents to the ED for evaluation of possible medical clearance. Patient was properly examined and was found to have signs and symptoms of unclear etiology. Patient has no obvious sign of acute disease. I was able to get in contact with Dr. Arellano who is on-call for Dr. Iniguez who actually spoke with Dr. Iniguez and tells me that Dr. Iniguez clear the patient and he did not sent the patient here. Per Dr. Iniguez he believes that whoever brought the patient here brought him an accident and she was not sent here by the office. This was made aware to my attending who agrees with plan. Labs done here this am did show elevated sodium. Labs will be redoned. My attending aware of this. Labs here showed Diagnosis Primary Impression: Hypernatremia Masoud Cheng May 02, 2017 18:00
[2017-05-02] MEDS ORDERED: SODIUM CHLORID 0.9% 500 ML INJ 500 ML IV ONE (19:00)
[2017-05-02 19:22] LABS: AUTOMATED NEUTROPHIL # 15.2 TH/MM3 (1.8-7.7); BASOPHIL # 0.1 TH/MM3 (0-0.2); BASOPHIL % 0.4 % (0.0-2.0); EOSINOPHIL # 0.1 TH/MM3 (0-0.4); EOSINOPHIL % 0.3 % (0.0-4.0); HEMATOCRIT 52.4 % (39.0-51.0); LYMPH % 11.5 % (9.0-44.0); LYMPHOCYTE # 2.1 TH/MM3 (1.0-4.8); MEAN CELL VOLUME 98.5 FL (80.0-100.0); MEAN CORPUSCULAR HEMOGLOBIN 31.3 PG (27.0-34.0); MEAN CORPUSCULAR HGB CONC 31.8 % (32.0-36.0); MONO % 6.5 % (0.0-8.0); NEUT % 81.3 % (16.0-70.0); PLATELET COUNT 227 TH/MM3 (150-450); RED BLOOD COUNT 5.32 MIL/MM3 (4.50-5.90); RED CELL DISTRIBUTION WIDTH 14.6 % (11.6-17.2); WHITE BLOOD COUNT 18.6 TH/MM3 (4.0-11.0)
[2017-05-02 19:30] LABS: HEMO FLAGS AUTO DIFF
[2017-05-02 19:37] LABS: BICARBONATE 23.2 MEQ/L (21.0-32.0); MAGNESIUM 2.9 MG/DL (1.5-2.5); POTASSIUM 4.1 MEQ/L (3.5-5.1)
[2017-05-02 20:03] LABS: PLATELET ESTIMATE SMEAR NORMAL (NORMAL); PLATELET MORPHOLOGY NORMAL (NORMAL); SCAN/DIFF AUTO DIFF CONFIRMED
--- NOTE | 2017-05-02 20:18 | PD ---
Physical Exam Date Seen by Provider: May 02, 2017 Time Seen by Provider: 20:14 Narrative This is a continuation of my previous note. Unfortunately my attending sign my note before I could finished a note. Please refer to my previous note. This is just a continuation. Data Data Last Documented VS Vital Signs Date Time Temp Pulse Resp B/P (MAP) Pulse Ox O2 Delivery O2 Flow Rate FiO2 05/02/17 17:44 98.1 86 18 117/74 (88) 96 Room Air Orders Orders Electrocardiogram (05/02/17 18:29) Complete Blood Count With Diff (05/02/17 18:29) Basic Metabolic Panel (Bmp) (05/02/17 18:29) Urinalysis - C+S If Indicated (05/02/17 18:29) Magnesium (Mg) (05/02/17 18:29) Sodium Chlorid 0.9% 500 Ml Inj (Ns 500 M (05/02/17 19:00) Cath For Specimen (05/02/17 19:48) Admit Order (Ed Use Only) (05/02/17 19:53) Labs Laboratory Tests Test 05/02/17 19:00 White Blood Count 18.6 TH/MM3 Red Blood Count 5.32 MIL/MM3 Hemoglobin 16.6 GM/DL Hematocrit 52.4 % Mean Corpuscular Volume 98.5 FL Mean Corpuscular Hemoglobin 31.3 PG Mean Corpuscular Hemoglobin Concent 31.8 % Red Cell Distribution Width 14.6 % Platelet Count 227 TH/MM3 Mean Platelet Volume 8.2 FL Neutrophils (%) (Auto) 81.3 % Lymphocytes (%) (Auto) 11.5 % Monocytes (%) (Auto) 6.5 % Eosinophils (%) (Auto) 0.3 % Basophils (%) (Auto) 0.4 % Neutrophils # (Auto) 15.2 TH/MM3 Lymphocytes # (Auto) 2.1 TH/MM3 Monocytes # (Auto) 1.2 TH/MM3 Eosinophils # (Auto) 0.1 TH/MM3 Basophils # (Auto) 0.1 TH/MM3 CBC Comment AUTO DIFF Differential Comment AUTO DIFF CONFIRMED Platelet Estimate NORMAL Platelet Morphology Comment NORMAL Red Cell Morphology Comment NORMAL Blood Urea Nitrogen 37 MG/DL Creatinine 1.72 MG/DL Random Glucose 106 MG/DL Calcium Level 8.8 MG/DL Magnesium Level 2.9 MG/DL Sodium Level 152 MEQ/L Potassium Level 4.1 MEQ/L Chloride Level 121 MEQ/L Carbon Dioxide Level 23.2 MEQ/L Anion Gap 8 MEQ/L Estimat Glomerular Filtration Rate 38 ML/MIN MDM Medical Record Reviewed: Yes Supervised Visit with JUNIOR: No Interpretation(s) CBC & BMP Diagram 05/02/17 19:00 Calcium Level 8.8, Magnesium Level 2.9 H Differential Diagnosis Hyponatremia versus hyperglycemia versus dehydration versus normal exam Narrative Course 81-year-old male to presents to the ED for evaluation of medical clearance. History is very difficult to discern from the patient as he himself is demented and we did not get any sort of paperwork stating what the reason of the patient is here. I was able to find that the labs done today show hypernatremia 158. What appears to be acute on chronic kidney disease. Patient does appear to be dehydrated on exam. Case was discussed in my attending Dr Canales who recommends admission for hypernatremia and dehydration. She specifically recommends that we give patient 500 mL bolus of normal saline for now. This was ordered. Labs were done here and showed leukocytosis as well as acute on chronic kidney disease with hypernatremia. Case discussed with Dr. Jackson who agrees to admission. Patient was admitted. Diagnosis Primary Impression: Hypernatremia Additional Impressions: Dementia Qualified Codes: G30.1 - Alzheimer's disease with late onset; F02.81 - Dementia in other diseases classified elsewhere with behavioral disturbance Dehydration Admitting Information Admitting Physician Requests: Observation Referrals: MELODY EM D.O. (PCP) Departure Forms: Tests/Procedures Additional Instruction: Follow with PCP. See ED for any worsening symptoms. Masoud Cheng May 02, 2017 20:18
[2017-05-02] MEDS ORDERED: ACETAMINOPHEN 325 MG TAB PO PRN (21:45)
[2017-05-02] MEDS ORDERED: MAGNESIUM HYDROXIDE SUSP 30 ML CUP PO PRN ×2 (21:45→22:00)
[2017-05-02] MEDS ORDERED: traMADol HCL 50 MG TAB PO PRN (21:45)
--- NOTE | 2017-05-02 21:58 | HHI.HP ---
HPI Service [facility] Primary Care Physician Pastor Oates D.O. Admission Diagnosis acute hyponatremia, acute on chronic kidney disease Chief Complaint: hypernatremia s/p rt femur fracture Travel History International Travel<30 Days: No Contact w/Intl Traveler <30 Da: No Traveled to Known Affected Are: No History of Present Illness 81-year-old male to presents to the ED for evaluation of medical clearance. History is very difficult to discern from the patient as he himself is demented and we did not get any sort of paperwork stating what the reason of the patient is here. I was able to find that the labs done today show hypernatremia 158. What appears to be acute on chronic kidney disease. Patient with recent fx rt femur and had surgery and today had post op visit with orthopedics ,was sent from [facility] for hypernatremia and dehydration will hydrate tonight is currently on levaquin for uti from what i can see . Patient unable to answer any questions. Will admit hydrate and will need case management for placement. Review of Systems ROS Limitations: Altered Mental Status Other unable to answer questions Past Family Social History Past Medical History dementia,hypertension,ckd,hx decubitus ulcer buttocks resolved ,hx squmaous cell ca left index finger Past Surgical History amputated toe in past,appendix polyp recent rt femur surgery Reported Medications Levaquin (Levofloxacin) 500 Mg Tablet 500 Mg PO DAILY 7 Days Risperdal (Risperidone) 0.5 Mg Tab 0.5 Mg PO HS Ativan (Lorazepam) 0.5 Mg Tab 0.5 Mg PO BID PRN Tramadol (Tramadol HCl) 50 Mg Tab 50 Mg PO Q4H PRN Lovenox Inj (Enoxaparin Sodium) 40 Mg/0.4 Ml Syr 40 Mg SQ Q24H 14 Days Namenda (Memantine) 10 Mg Tab 10 Mg PO BID Reported Milk of Magnesia Liq (Magnesium Hydroxide) 400 Mg/5 Ml Susp 30 Ml PO DAILY PRN Tylenol (Acetaminophen) 325 Mg Tab 650 Allergies: Coded Allergies: penicillin G (Unverified Allergy, Unknown, 05/02/17) codeine (Unverified Adverse Reaction, Unknown, NAUSEA/VOMITTING, 05/02/17) Social History NS,ND Physical Exam Vital Signs Vital Signs Date Time Temp Pulse Resp B/P (MAP) Pulse Ox O2 Delivery O2 Flow Rate FiO2 05/02/17 17:44 98.1 86 18 117/74 (88) 96 Room Air 05/02/17 17:40 98.1 84 20 117/74 (88) 96 Physical Exam GENERAL: This is a well-nourished, well-developed patient, in no apparent distress. SKIN: No rashes, ecchymoses or lesions. Cool and dry. HEAD: Atraumatic. Normocephalic. No temporal or scalp tenderness. EYES: Pupils equal round and reactive. Extraocular motions intact. No scleral icterus. No injection or drainage. ENT: Nose without bleeding, purulent drainage or septal hematoma. Throat without erythema, tonsillar hypertrophy or exudate. Uvula midline. Airway patent. NECK: Trachea midline. No JVD or lymphadenopathy. Supple, nontender, no meningeal signs. CARDIOVASCULAR: Regular rate and rhythm without murmurs, gallops, or rubs. RESPIRATORY: Clear to auscultation. Breath sounds equal bilaterally. No wheezes , rales, or rhonchi. GASTROINTESTINAL: Abdomen soft, non-tender, nondistended. No hepato-splenomegaly , or palpable masses. No guarding. MUSCULOSKELETAL: Extremities without clubbing, cyanosis, or edema. No joint tenderness, effusion, or edema noted. No calf tenderness. Negative Homans sign bilaterally. NEUROLOGICAL: Awake and alert Not answering questions. Cranial nerves II through XII intact. Motor and sensory grossly within normal limits. 3 out of 5 muscle strength in all muscle groups. Non verbal at this time Laboratory Laboratory Tests Test 05/02/17 19:00 White Blood Count 18.6 Red Blood Count 5.32 Hemoglobin 16.6 Hematocrit 52.4 Mean Corpuscular Volume 98.5 Mean Corpuscular Hemoglobin 31.3 Mean Corpuscular Hemoglobin Concent 31.8 Red Cell Distribution Width 14.6 Platelet Count 227 Mean Platelet Volume 8.2 Neutrophils (%) (Auto) 81.3 Lymphocytes (%) (Auto) 11.5 Monocytes (%) (Auto) 6.5 Eosinophils (%) (Auto) 0.3 Basophils (%) (Auto) 0.4 Neutrophils # (Auto) 15.2 Lymphocytes # (Auto) 2.1 Monocytes # (Auto) 1.2 Eosinophils # (Auto) 0.1 Basophils # (Auto) 0.1 CBC Comment AUTO DIFF Differential Comment AUTO DIFF CONFIRMED Platelet Estimate NORMAL Platelet Morphology Comment NORMAL Red Cell Morphology Comment NORMAL Blood Urea Nitrogen 37 Creatinine 1.72 Random Glucose 106 Calcium Level 8.8 Magnesium Level 2.9 Sodium Level 152 Potassium Level 4.1 Chloride Level 121 Carbon Dioxide Level 23.2 Anion Gap 8 Estimat Glomerular Filtration Rate 38 Result Diagram: 05/02/17189905/02/171899 Caprini VTE Risk Assessment Caprini VTE Risk Assessment: Mod/High Risk (score >= 2) Caprini Risk Assessment Model Point Value = 1 Point Value = 2 Point Value = 3 Point Value = 5 Age 41-60 Minor surgery BMI > 25 kg/m2 Swollen legs Varicose veins or History of unexplained or recurrent spontaneous Oral contraceptives or hormone replacement Sepsis (< 1 month) Serious lung disease, including pneumonia (< 1 month) Abnormal pulmonary function Acute myocardial infarction Congestive heart failure (< 1 month) History of inflammatory bowel disease Medical patient at bed rest Age 61-74 Arthroscopic surgery Major open surgery (> 45 min) Laparoscopic surgery (> 45 min) Malignancy Confined to bed (> 72 hours) Immobilizing plaster cast Central venous access Age >= 75 History of VTE Family history of VTE Factor V Leiden Prothrombin [id number] Lupus anticoagulant Anticardiolipin antibodies Elevated serum homocysteine Heparin-induced thrombocytopenia Other congenital or acquired thrombophilia Stroke (< 1 month) Elective arthroplasty Hip, pelvis, or leg fracture Acute spinal cord injury (< 1 month) Prophylaxis Regimen Total Risk Factor Score Risk Level Prophylaxis Regimen 0-1 Low Early ambulation 2 Moderate Order ONE of the following: *Sequential Compression Device (SCD) *Heparin 5000 units SQ BID 3-4 Higher Order ONE of the following medications: *Heparin 5000 units SQ TID *Enoxaparin/Lovenox 40 mg SQ daily (WT < 150 kg, CrCl > 30 mL/min) *Enoxaparin/Lovenox 30 mg SQ daily (WT < 150 kg, CrCl > 10-29 mL/min) *Enoxaparin/Lovenox 30 mg SQ BID (WT < 150 kg, CrCl > 30 mL/min) AND/OR *Sequential Compression Device (SCD) 5 or more Highest Order ONE of the following medications: *Heparin 5000 units SQ TID (Preferred with Epidurals) *Enoxaparin/Lovenox 40 mg SQ daily (WT < 150 kg, CrCl > 30 mL/min) *Enoxaparin/Lovenox 30 mg SQ daily (WT < 150 kg, CrCl > 10-29 mL/min) *Enoxaparin/Lovenox 30 mg SQ BID (WT < 150 kg, CrCl > 30 mL/min) AND *Sequential Compression Device (SCD) Assessment and Plan Problem List: (1) Hypernatremia ICD Codes: E87.0 - Hyperosmolality and hypernatremia Status: Acute Plan: IV 1/2 ns at 100 cc /hr recheck labs (2) Dementia ICD Codes: F03.90 - Unspecified dementia without behavioral disturbance Status: Chronic Plan: continue home med (3) Decubitus ulcer of left buttock, stage 2 ICD Codes: L89.322 - Pressure ulcer of left buttock, stage 2 Status: Chronic Plan: appears stable will have wound nurse see patient (4) Closed displaced fracture of right femoral neck ICD Codes: S72.001A - Fracture of unspecified part of neck of right femur, initial encounter for closed fracture Status: Acute Plan: stable just saw orthopedics is on lovenox Assessment and Plan further plan as case develops will hydrate continue levaquin for UTI and have case management see patient for placement Code Status full Problem Qualifiers (1) Dementia: Qualified Codes: G30.1 - Alzheimer's disease with late onset; F02.81 - Dementia in other diseases classified elsewhere with behavioral disturbance Jim Joyce MD May 02, 2017 21:58
[2017-05-02] MEDS ORDERED: SENNOSIDES 8.6 MG TAB PO PRN (22:00)
[2017-05-02] MEDS ORDERED: SODIUM CHLORIDE 0.9% FLUSH 10 ML FLUSH IV FLUSH PRN (22:00)
[2017-05-02] MEDS ORDERED: NALOXONE HCL 0.4 MG/ML AMP IV PRN (22:00)
[2017-05-02] MEDS ORDERED: BISACODYL 10 MG SUPP RECTAL PRN (22:00)
[2017-05-02] MEDS ORDERED: LACTULOSE SYRUP 20 GM/30 ML CUP PO PRN (22:00)
[2017-05-02] MEDS: SODIUM CHLOR 0.45% 1000 ML INJ 1,000 ML IV SCH (22:25)
[2017-05-02] MEDS: ENOXAPARIN SODIUM 40 MG/0.4 ML SYRINGE SQ SCH (22:25)
[2017-05-02 22:28] VITALS: BP 123/65; PULSE 64; RESP 18; O2SAT 100
[2017-05-02 23:15] LABS: BLOOD, URINE NEG (NEG); COMMENT (UR) CULT NOT INDICATED; CULTURE IF INDICATED CULT NOT INDICATED; GLUCOSE,URINE NEG (NEG); HYALINE CAST, URINE 7 /lpf (RARE); KETONE, URINE NEG (NEG); MUCUS URINE FEW /lpf (OCC); NITRITE,URINE NEG (NEG); SQUAMOUS EPITHELIAL CELL URINE <1 /hpf (0-5); URINE COLOR YELLOW (YELLW/STRAW)
[2017-05-03] VITALS (7 sets, daily range): BP systolic 104–142; BP diastolic 56–67; PULSE 50–72; RESP 16–20; TEMP 97.2–98.2; O2SAT 98–100
[2017-05-03] MEDS: SODIUM CHLORIDE 0.9% FLUSH 10 ML FLUSH IV FLUSH SCH ×2 (09:00→21:24)
[2017-05-03] MEDS ORDERED: LEVOFLOXACIN 500 MG TAB PO ONE (09:00)
[2017-05-03] MEDS: SODIUM CHLOR 0.45% 1000 ML INJ 1,000 ML IV SCH ×2 (09:02→19:31)
[2017-05-03] MEDS: DOCUSATE SODIUM 50 MG/SENNA 8.6 MG TAB PO SCH ×2 (09:04→21:24)
[2017-05-03] MEDS: MEMANTINE HCL 10 MG TAB PO SCH ×2 (09:04→21:24)
--- NOTE | 2017-05-03 09:09 | HHI.PR ---
Subjective Remarks Pt resting comfortably Does not arouse easily Confused at baseline Objective Vitals Vital Signs Date Time Temp Pulse Resp B/P (MAP) Pulse Ox O2 Delivery O2 Flow Rate FiO2 05/03/17 07:26 97.8 62 18 136/64 (88) 100 05/03/17 06:12 97.9 56 20 116/56 (76) 98 05/03/17 01:21 98.2 64 16 104/67 (79) 100 05/03/17 00:35 05/02/17 22:28 64 18 123/65 (84) 100 Room Air 05/02/17 17:44 98.1 86 18 117/74 (88) 96 Room Air 05/02/17 17:40 98.1 84 20 117/74 (88) 96 Result Diagram: 05/02/17 1900 05/02/17 190 Other Results Laboratory Tests Test 05/02/17 19:00 05/02/17 22:13 White Blood Count 18.6 TH/MM3 Red Blood Count 5.32 MIL/MM3 Hemoglobin 16.6 GM/DL Hematocrit 52.4 % Mean Corpuscular Volume 98.5 FL Mean Corpuscular Hemoglobin 31.3 PG Mean Corpuscular Hemoglobin Concent 31.8 % Red Cell Distribution Width 14.6 % Platelet Count 227 TH/MM3 Mean Platelet Volume 8.2 FL Neutrophils (%) (Auto) 81.3 % Lymphocytes (%) (Auto) 11.5 % Monocytes (%) (Auto) 6.5 % Eosinophils (%) (Auto) 0.3 % Basophils (%) (Auto) 0.4 % Neutrophils # (Auto) 15.2 TH/MM3 Lymphocytes # (Auto) 2.1 TH/MM3 Monocytes # (Auto) 1.2 TH/MM3 Eosinophils # (Auto) 0.1 TH/MM3 Basophils # (Auto) 0.1 TH/MM3 CBC Comment AUTO DIFF Differential Comment AUTO DIFF CONFIRMED Platelet Estimate NORMAL Platelet Morphology Comment NORMAL Red Cell Morphology Comment NORMAL Blood Urea Nitrogen 37 MG/DL Creatinine 1.72 MG/DL Random Glucose 106 MG/DL Calcium Level 8.8 MG/DL Magnesium Level 2.9 MG/DL Sodium Level 152 MEQ/L Potassium Level 4.1 MEQ/L Chloride Level 121 MEQ/L Carbon Dioxide Level 23.2 MEQ/L Anion Gap 8 MEQ/L Estimat Glomerular Filtration Rate 38 ML/MIN Urine Color YELLOW Urine Turbidity CLEAR Urine pH 5.0 Urine Specific Spencer 1.019 Urine Protein NEG mg/dL Urine Glucose (UA) NEG mg/dL Urine Ketones NEG mg/dL Urine Occult Blood NEG Urine Nitrite NEG Urine Bilirubin NEG Urine Urobilinogen LESS THAN 2.0 MG/DL Urine Leukocyte Esterase NEG Urine RBC 1 /hpf Urine WBC 1 /hpf Urine Squamous Epithelial Cells <1 /hpf Urine Hyaline Casts 7 /lpf Urine Mucus FEW /lpf Microscopic Urinalysis Comment CULT NOT INDICATED Objective Remarks General: NAD, resting comfortably Chest: CTA anteriorly Cardiac: Regular Abd: +BS, soft ND/NT Ext: No edema A/P Problem List: (1) Hypernatremia ICD Codes: E87.0 - Hyperosmolality and hypernatremia Status: Acute Plan: - Pt is an 81 yo male with advanced dementia/behavioral disturbances. 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 He was discharged to a facility and the brought back on 04/22 after a fall and found to have a right femur neck fx/impacted, mild RUBEN/dehydration/hypernatremia and a UTI with urine culture growing Proteus. Pt underwent right bipolar hip arthroplasty 04/22 and was treated for his UTI with Levaquin. He was discharged to [facility] for for rehab. - Pt was sent from [facility] for hypernatremia and dehydration - He was found to have some mild RUBEN and Na+ of 158 at admission. - Pt was given 1/2 NS at 100 cc/hr - Awaiting repeat labs for today - Repeat UA was negative. Will not continue on Abx at this time. - Supportive care - PT evaluation - Case management consult for discharge planning. (2) Dementia ICD Codes: F03.90 - Unspecified dementia without behavioral disturbance Status: Chronic Plan: - Home meds continued (3) Decubitus ulcer of left buttock, stage 2 ICD Codes: L89.322 - Pressure ulcer of left buttock, stage 2 Status: Chronic Plan: - Appears stable - Wound care nurse consulted for evaluation (4) Closed displaced fracture of right femoral neck ICD Codes: S72.001A - Fracture of unspecified part of neck of right femur, initial encounter for closed fracture Status: Acute Plan: - Stable - Pt had f/u with Orthopedics prior to admission. - Cont. Lovenox Assessment and Plan Patient examined. Assessment and plan formulated with Norma Melendez PA-C. I agree with the above. dehydrated. hypernatremia recent hip fx. severe dementia. poor prognosis overall d/c to snf tomorrow. Problem Qualifiers (1) Dementia: Qualified Codes: G30.1 - Alzheimer's disease with late onset; F02.81 - Dementia in other diseases classified elsewhere with behavioral disturbance Norma Melendez May 03, 2017 09:09 Keaton Anderson MD May 03, 2017 14:30
--- NOTE | 2017-05-03 14:30 | EKG ---
Date Performed: 05/02/2017 Time Performed: 19:38:03 PTAGE: 81 years EKG: Sinus rhythm WITH FIRST DEGREE AV BLOCK RIGHT BUNDLE BRANCH BLOCK LEFT ANTERIOR FASCICULAR BLOCK ABNORMAL ECG Com pared to prior tracing no significant change PREVIOUS TRACING : 05/02/2017 18.43 DOCTOR: Julito Ackerman Interpretating Date/Time 05/03/2017 14:29:42
--- NOTE | 2017-05-03 14:30 | EKG ---
Date Performed: 05/02/2017 Time Performed: 18:43:23 PTAGE: 81 years EKG: Sinus rhythm WITH FIRST DEGREE AV BLOCK RIGHT BUNDLE BRANCH BLOCK LEFT ANTERIOR FASCICULAR BLOCK ABNORMAL ECG Com pared to prior tracing no significant change PREVIOUS TRACING : 04/22/2017 04.23 DOCTOR: Julito Ackerman Interpretating Date/Time 05/03/2017 14:29:34
--- NOTE | 2017-05-03 17:41 | PD.WCN.NOT ---
Wound Consult Description: Consult received for pressure ulcer buttock/chronic ulcer buttock from Doctor Isiah Communicated with: NARENDRA Guillen [facility] pod Recommendation: Please cleanse buttock area with soap and water and pat dry apply calazime barrier cream available through misogram only to buttock area and leave open to air. Continue to turn patient every 2 hours and PRN for comfort Additional Information: Patient seen on [facility] pod for evaluation of pressure injury to buttock area/ chronic ulcer buttock. Patient has hx of pressure ulcers on buttocks. Turned patient to R side with assistance of NARENDRA Romo [facility] h pod and senior writer to reveal scar tissue to gluteal cleft and bilateral buttocks. Patient 1 small area of partial thickness skin loss within scar tissue area, measuring ~0.5cm x ~0.1cm x ~<0.1 cm. Scar tissue is otherwise intact.Repositioned patient to R side with pillow. NAERNDRA Romo will obtain barrier cream from [facility] and apply to patient. Jes[facility] May 03, 2017 17:41
[2017-05-03] MEDS ORDERED: risperiDONE 0.5 MG TAB PO SCH (21:00)
[2017-05-03] MEDS: ENOXAPARIN SODIUM 40 MG/0.4 ML SYRINGE SQ SCH (21:25)
[2017-05-03] MEDS: LORazepam 0.5 MG TAB PO PRN (23:30)
[2017-05-04 04:21] VITALS: BP 138/81; PULSE 61; RESP 18; TEMP 98.1; O2SAT 95
[2017-05-04] MEDS: SODIUM CHLOR 0.45% 1000 ML INJ 1,000 ML IV SCH ×2 (06:39→13:46)
--- NOTE | 2017-05-04 08:02 | HHI.PR ---
Subjective Remarks Pt had some anxiety issues overnight per nursing staff but this improved with ativan Pts labs were never drawn yesterday No other issues reported overnight. Objective Vitals Vital Signs Date Time Temp Pulse Resp B/P (MAP) Pulse Ox O2 Delivery O2 Flow Rate FiO2 05/04/17 04:21 98.1 61 18 138/81 (100) 95 05/03/17 23:21 97.2 50 19 115/56 (75) 100 05/03/17 20:38 97.4 56 18 106/56 (73) 98 05/03/17 17:40 97.6 58 16 142/67 (92) 100 05/03/17 12:48 97.3 72 20 108/59 (75) 100 Result Diagram: 05/02/17189905/02/171899 Objective Remarks General: NAD, resting comfortably Chest: CTA anteriorly Cardiac: Regular Abd: +BS, soft ND/NT Ext: No edema A/P Problem List: (1) Hypernatremia ICD Codes: E87.0 - Hyperosmolality and hypernatremia Status: Acute Plan: - Pt is an 81 yo male with advanced dementia/behavioral disturbances. 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 He was discharged to a facility and the brought back on 04/22 after a fall and found to have a right femur neck fx/impacted, mild RUBEN/dehydration/hypernatremia and a UTI with urine culture growing Proteus. Pt underwent right bipolar hip arthroplasty 04/22 and was treated for his UTI with Levaquin. He was discharged to [facility] for rehab. - Pt was sent from [facility] for hypernatremia and dehydration - He was found to have some mild RUBEN and Na+ of 158 at admission. - Pt was given 1/2 NS at 100 cc/hr - Repeat UA was negative. Will not continue on Abx at this time. - Pts repeat labs were never drawn on 05/03. Called the lab this morning and reordered the labs STAT for this morning. - Awaiting repeat labs for today. If repeat labs are stable, anticipate discharge back to rehab this afternoon. - PT recommending continuing PT at rehab - Pt with an overall poor prognosis and high risk for readmission (2) Dementia ICD Codes: F03.90 - Unspecified dementia without behavioral disturbance Status: Chronic Plan: - Home meds continued (3) Decubitus ulcer of left buttock, stage 2 ICD Codes: L89.322 - Pressure ulcer of left buttock, stage 2 Status: Chronic Plan: - Appears stable - Wound care nurse consulted for evaluation (4) Closed displaced fracture of right femoral neck ICD Codes: S72.001A - Fracture of unspecified part of neck of right femur, initial encounter for closed fracture Status: Acute Plan: - Stable - Pt had f/u with Orthopedics prior to admission. - Cont. Lovenox Assessment and Plan Patient examined. Assessment and plan formulated with Norma Melendez PA-C. I agree with the above. d/c to snf. Problem Qualifiers (1) Dementia: Qualified Codes: G30.1 - Alzheimer's disease with late onset; F02.81 - Dementia in other diseases classified elsewhere with behavioral disturbance Norma Melendez May 04, 2017 08:02 Keaton Anderson MD May 04, 2017 13:34
[2017-05-04] MEDS ORDERED: ENOX40P SQ (08:05)
--- NOTE | 2017-05-04 08:15 | HHI.DCPOC ---
Discharge Care Plan Diagnosis: (1) Hypernatremia (2) Dementia (3) Closed displaced fracture of right femoral neck (4) Decubitus ulcer of left buttock, stage 2 (5) Dehydration Goals to Promote Your Health * To prevent worsening of your condition and complications * To maintain your health at the optimal level Directions to Meet Your Goals Take your medications as prescribed Follow your dietary instruction Follow activity as directed Keep your appointments as scheduled Take your immunizations and boosters as scheduled If your symptoms worsen call your PCP, if no PCP go to Urgent Care Center or Emergency Room Smoking is Dangerous to Your Health. Avoid second hand smoke Call the 24-hour hour crisis hotline for domestic abuse at Norma Melendez May 04, 2017 08:15
[2017-05-04 08:40] VITALS: BP 107/53; PULSE 50; RESP 18; TEMP 97.6; O2SAT 96
[2017-05-04] MEDS ORDERED: LEVOFLOXACIN 250 MG TAB PO SCH (09:00)
[2017-05-04] MEDS: LORazepam 0.5 MG TAB PO PRN (10:43)
[2017-05-04] MEDS: DOCUSATE SODIUM 50 MG/SENNA 8.6 MG TAB PO SCH (10:43)
[2017-05-04] MEDS: SODIUM CHLORIDE 0.9% FLUSH 10 ML FLUSH IV FLUSH SCH (10:44)
[2017-05-04] MEDS: MEMANTINE HCL 10 MG TAB PO SCH (10:44)
[2017-05-04 12:34] VITALS: BP 119/56; PULSE 49; RESP 18; TEMP 97.4; O2SAT 92
[2017-05-04 13:17] VITALS: O2SAT 95
[2017-05-04] MEDS ORDERED: LORA-392 PO (13:33)
[2017-05-04] MEDS ORDERED: TRAM50TA PO (13:33)
[2017-05-04] MEDS ORDERED: RISP0.5T20 PO (13:33)
[2017-05-04 15:21] LABS: AUTOMATED NEUTROPHIL # 9.8 TH/MM3 (1.8-7.7); BASOPHIL # 0.1 TH/MM3 (0-0.2); BASOPHIL % 0.9 % (0.0-2.0); EOSINOPHIL % 0.4 % (0.0-4.0); HEMATOCRIT 37.1 % (39.0-51.0); LYMPH % 12.3 % (9.0-44.0); LYMPHOCYTE # 1.5 TH/MM3 (1.0-4.8); MEAN CELL VOLUME 95.4 FL (80.0-100.0); MEAN CORPUSCULAR HEMOGLOBIN 30.5 PG (27.0-34.0); MONO % 4.2 % (0.0-8.0); NEUT % 82.2 % (16.0-70.0); PLATELET COUNT 207 TH/MM3 (150-450); RED BLOOD COUNT 3.88 MIL/MM3 (4.50-5.90); RED CELL DISTRIBUTION WIDTH 14.3 % (11.6-17.2); WHITE BLOOD COUNT 11.9 TH/MM3 (4.0-11.0)
[2017-05-04 15:34] LABS: HEMO FLAGS AUTO DIFF
[2017-05-04 15:38] LABS: BICARBONATE 25.5 MEQ/L (21.0-32.0); POTASSIUM 3.6 MEQ/L (3.5-5.1)
[2017-05-04 15:49] VITALS: BP 95/50; PULSE 59; RESP 16; TEMP 97.3; O2SAT 98
[2017-05-04 16:06] LABS: NEUTROPHIL # MANUAL DIFF 10.6 TH/MM3 (1.8-7.7); POLYS (SEG NEUTROPHILS) 89 % (16-70); WBC DIFF SAMPLE 100
[2017-05-04 16:07] LABS: PLATELET ESTIMATE SMEAR NORMAL (NORMAL); PLATELET MORPHOLOGY NORMAL (NORMAL); SCAN/DIFF FINAL DIFF MANUAL
== END 2017-05-04 18:01 | disposition home or self-care (01) ==
LOC: NEPE 17:07 → NEDA 19:54 → NEPHCDU 05-03 00:19
PROVIDERS: ADMIT Hospitalist; ATTEND Hospitalist
DX: E87.0 Hyperosmolality and hypernatremia (principal); E86.0 Dehydration; F02.81 Dementia in other diseases classified elsewhere, unspecified severity, with behavioral disturbance; G30.1 Alzheimer's disease with late onset; S72.001A Fracture of unspecified part of neck of right femur, initial encounter for closed fracture; L89.322 Pressure ulcer of left buttock, stage 2; I12.9 Hypertensive chronic kidney disease with stage 1 through stage 4 chronic kidney disease, or unspecified chronic kidney disease; N18.9 Chronic kidney disease, unspecified; N17.9 Acute kidney failure, unspecified; F41.9 Anxiety disorder, unspecified; N39.0 Urinary tract infection, site not specified; W19.XXXA Unspecified fall, initial encounter
CPT/HCPCS: 80048; 81001; 83735; 85007; 85025; 85027; 93005; 96360; 96361; 96372; 97162; 99285; G0378; G8987; G8988; J1650; J7040; P9612